=== PATIENT | female | born 1975 | race Caucasian/White ===

== ENCOUNTER 2022-07-24 09:10 | Outpatient (CLI) | payer OTHER, SELFPAY | END 2022-07-24 09:11 | disposition home or self-care (01) | LOC: LKVREF 08-02 09:13 | PROVIDERS: PCP Physician Assistant; Visit Provider Nurse Practitioner Family | DX: R35.0 Frequency of micturition (principal); N39.0 Urinary tract infection, site not specified | CPT/HCPCS: 87086 ==

== ENCOUNTER 2023-03-27 16:48 | Outpatient (CLI) | payer OTHER, SELFPAY | END 2023-03-27 16:49 | disposition home or self-care (01) | LOC: LKVREF 16:50 | PROVIDERS: PCP Physician Assistant; Visit Provider Physician Assistant | DX: L81.9 Disorder of pigmentation, unspecified (principal); R21 Rash and other nonspecific skin eruption | CPT/HCPCS: 86618 ==

== ENCOUNTER 2024-06-20 18:09 | Outpatient (CLI) | payer OTHER, SELFPAY ==
--- OUTSIDE RECORDS SUMMARY | 2024-06-20 18:11 | XMS_ITS | Referral Summary ---
Author Organization Driver Address [address] [place] [address]. [place] [address] Care Team Providers Care Mortgage Collector Name Role Phone Maureen Centeno MD Primary Care Provider Sissy Herrera [facility] Unavailable [phone] Jr Chaparro PA-C Unavailable [phone] Unavailable [phone] Encounters Date Type Department Care Team Description 05/23/2024 MyC Medical Advice [facility] [address] [place] [address] Jr Chaparro PA-C 05/23/2024 Travel 05/23/2024 1:00 PM CDT Office Visit [facility] [address] [place] [address] Jr Chaparro PA-C Class 1 obesity due to excess calories without serious comorbidity with body mass index (BMI) of 33.0 to 33.9 in adult (Primary Dx); Mixed hyperlipidemia; Prediabetes; Benign essential hypertension 05/22/2024 Travel 05/17/2024 10:00 AM CDT Virtual Visit [facility] [address] [place] [phone] Jr Chaparro PA-C Scheller Williams, Kelly J, LISA Elevated glucose; Mixed hyperlipidemia 04/18/2024 [facility] [address] [place] [address] Jr Chaparro PA-C Elevated glucose (Primary Dx); Mixed hyperlipidemia 04/18/2024 Travel 04/18/2024 7:00 AM CDT Office Visit [facility] [address] [place] [address] Jr Chaparro PA-C Routine general medical examination at a health care facility (Primary Dx); Bipolar affective disorder, remission status unspecified (H); Depression, major, recurrent, moderate (H); Benign essential hypertension; Acute dermatitis; Need for prophylactic vaccination and inoculation against influenza; HSV (herpes simplex virus) infection; Gastroesophageal reflux disease, unspecified whether esophagitis present; Elevated glucose 04/17/2024 Travel from Last 3 Months Allergies No known active allergies Medications lisdexamfetamine (VYVANSE) 70 MG capsuleIndication s:Attention Deficit Hyperactivity Disorder Take 70 mg by mouth every morning Active zolpidem ER (AMBIEN CR) 6.25 MG CR tabletIndications :Insomnia, unspecified type Take 1 tablet (6.25 mg) by mouth nightly as needed for sleep 30 tablet 08/24/19 22 Active clobetasol (TEMOVATE) 0.05 % external solutionIndicatio ns:Rash and nonspecific skin eruption Apply topically 2 times daily 50 mL 07/28/20 22 Active mupirocin (BACTROBAN) 2 % external ointmentIndicatio ns:Local infection of skin and subcutaneous tissue Apply topically 3 times daily 22 g 07/28/20 22 Active hydrocortisone 2.5 % cream APPLY 1 APPLICATION TWICE A DAY NEEDED TOPICALLY TO RASH IN GROIN FOLDS FOR LESS THAN 1 WEEK 10/29/19 23 Active hydrochlorothiazi de (MICROZIDE) 12.5 MG capsuleIndication s:Benign essential hypertension Take 1 capsule (12.5 mg) by mouth daily. 90 capsule 3 04/18/20 24 Active triamcinolone (KENALOG) 0.1 % external lotionIndications :Acute dermatitis APPLY TO BACK OF SCALP TWICE A DAY X 1-2 WEEKS, THEN NEEDED FOR ITCHING 60 mL 3 04/18/20 24 Active sertraline (ZOLOFT) 100 MG tabletIndications :Depression, major, recurrent, moderate (H) Take 1.5 tablets (150 mg) by mouth daily. 135 tablet 1 04/18/20 24 Active acyclovir (ZOVIRAX) 400 MG tabletIndications :HSV (herpes simplex virus) infection Take 1 tablet (400 mg) by mouth daily. 90 tablet 3 04/18/20 24 Active RABEprazole (ACIPHEX) 20 MG EC tabletIndications :Gastroesophageal reflux disease, unspecified whether esophagitis present Take 1 tablet (20 mg) by mouth daily. 90 tablet 3 04/18/20 24 Active Semaglutide-Weigh t Management (WEGOVY) 0.25 MG/0.5ML penIndications:Cl ass 1 obesity due to excess calories without serious comorbidity with body mass index (BMI) of 33.0 to 33.9 in adult Inject 0.25 mg subcutaneously once a week. 2 mL 05/23/20 24 Active Semaglutide-Weigh t Management (WEGOVY) 0.5 MG/0.5ML penIndications:Cl ass 1 obesity due to excess calories without serious comorbidity with body mass index (BMI) of 33.0 to 33.9 in adult Inject 0.5 mg subcutaneously once a week. 2 mL 06/20/20 24 Active ondansetron (ZOFRAN) 4 MG tabletIndications :Class 1 obesity due to excess calories without serious comorbidity with body mass index (BMI) of 33.0 to 33.9 in adult Take 1 tablet (4 mg) by mouth every 8 hours as needed for nausea. 30 tablet 05/23/20 24 Active Active Problems Problem Noted Date Diagnosed Date Genital herpes simplex 02/22/2023 Hemorrhoids 02/22/2023 02/22/2023 Anxiety 02/24/2022 02/22/2023 Hypertension 02/24/2022 02/22/2023 ADHD (attention deficit hyperactivity disorder) 02/24/2022 02/22/2023 History of herpes genitalis 12/29/2021 Bipolar affective disorder 12/29/2021 Alcohol use 12/29/2021 Overview (12/29/2021): ALT elevated to 60 in 2019. Normal ALT since that time. Drinking 3-4 Truly seltzers daily Significant fam hx of AUD in parents Consider yearly LFTs Abnormal TSH 12/07/2018 Elevated liver enzymes 12/07/2018 Benign essential hypertension 12/07/2018 Class 1 obesity due to exces s calories with serious comorbidity and body mass index (BMI) of 33.0 to 33.9 in adult 01/22/2018 Depression, major, recurrent, moderate 3 Chronic constipation 08/15/2011 Foot deformities 08/15/2011 Mild major depression 12/21/2010 HYPERLIPIDEMIA LDL GOAL <160 06/13/2010 GERD (gastroesophageal reflux disease) 0 Attention deficit hyperactivity disorder (ADHD) 11/06/2001 Overview (05/14/2015): Problem list name updated by automated process. Provider to review Herpes simplex virus (HSV) infection 11/06/2001 Overview (05/14/2015): Problem list name updated by automated process. Provider to review Family history of early CAD Resolved Problems Problem Noted Date Diagnosed Date Resolved Date Obesity 04/12/2010 01/22/2018 Disorder of sacrum 08/03/2006200 7 Overview (05/14/2015): Problem list name updated by automated process. Provider to review state, incidental 08/03/2006 0 04/12/2010 Depressive disorder, not elsewhere classified 11/07/19 02 12/21/2010 High cholesterol 12/07/2018 Immunizations Name Administration Dates Next Due COVID-19 Bivalent 12+ (Pfizer) 07/28/2022 COVID-19 Monovalent 12+ (Pfizer 2021) 12/29/2021 Flu, Unspecified 04/25/2023,05/23/2007 Influenza (H1N1) 09/28/2009 Influenza (IIV3) PF 05/18/2011,05/19/2010,2008 Influenza Vaccine >6 months,quad, PF ,05/24/2021,04/15/2020,2018,06/06/2018,05/19/2016,05/30/2014,1 Influenza Vaccine Trivalent (FluBlok) 04/18/2024 Influenza Vaccine, 6+MO IM (QUADRIVALENT W/PRESERVATIVES) 07/17/2017,05/19/2016 TD,PF 7+ (Tenivac) 09/26/2002,03/08/2002, 992 TDAP (Adacel,Boostrix) 02/21/2023 TDAP Vaccine (Adacel) 12/13/2012 Td (Adult), Adsorbed 09/26/2002,03/08/2002 Social History Tobacco Use Types Packs/Day Years Used Date Smoking Tobacco: Never Passive Smoke Exposure: Never Smokeless Tobacco: Never Tobacco Cessation:Counseling Given: Not Answered Comments:Parents smoked for first 17 years of my life Alcohol Use Standard Drinks/Week Comments Yes 0 (1 standard drink = 0.6 oz pur e alcohol) 3 times weekly Social Connection and Isolation Panel [NHANES] A nswer Date Recorded Frequency of Communication with Friends and Fami ly Not on file 04/17/2024 How often do you get together with friends or re latives? Once a week 04/17/2024 Attends [employer] Services Not on file 04/17 Active Member of Clubs or Organizations Not on f ile 04/17/2024 Attends Club or Organization Meetings Not on sammie e 04/17/2024 Marital Status Not on file 04/17/2024 AUDIT-C Answer Date Recorded Q1: How often do you have a drink containing alcohol? 4 or more times a week 02/21/2023 Q2: How many drinks containi ng alcohol do you have on a typical day when you are drinking? 1 or 2 Q3: How often do you have si x or more drinks on one occasion? Monthly 02/21/2023 PHQ-2 Answer Date Recorded PHQ-2 Score 2 04/18/2024 [facility] - Occupational Stress Questionnaire Answer Date Recorded Do you feel stress - tense, restless, nervous, or anxious, or unable to sleep at night because your mind is troubled all the time - these days? To some extent 04/17/2024 Exercise Vital Sign Answer Date Recorde d On average, how many days pe r week do you engage in moderate to strenuous exercise (like a brisk walk)? 5 days 04/17/2024 On average, how many minutes do you engage in exercise at this level? 20 min 04/17/2024 Adolescent Education Answer Date Record ed Getting School Help Needed Not on file 05/11 Food Insecurity Answer Date Recorded Within the past 12 months, d id you worry that your food would run out before you got money to buy more? No 04/17/2024 Within the past 12 months, d id the food you bought just not last and you didn? t have money to get more? No 04/17/2024 Housing Stability Answer Date Recorded Do you have housing? (Timbo g is defined as stable permanent housing and does not include staying ouside in a car, in a tent, in an abandoned building, in an overnight assisted, or couch-surfing.) Yes 04/17/2024 Are you worried about losing your housing? No 04/17/2024 Financial Resource Strain Answer Date R ecorded Within the past 12 months, h ave you or your family members you live with been unable to get utilities (heat, electricity) when it was really needed? No 04/17/2024 Transportation Needs Answer Date Record ed Within the past 12 months, h as lack of transportation kept you from medical appointments, getting your medicines, non-medical meetings or appointments, work, or from getting things that you need? No 04/17/2024 Interpersonal Safety Answer Date Record ed Do you feel physically and e motionally safe where you currently live? Yes 04/18/2024 Within the past 12 months, h ave you been hit, slapped, kicked or otherwise physically hurt by someone? No 04/18/2024 Within the past 12 months, h ave you been humiliated or emotionally abused in other ways by your partner or ex-partner? No 04/18/2024 Comments No Sex and Gender Information Value Date Recorded Sex Assigned at Female 10/15/2018 5:37 PM TIP MENDER Legal Sex Female 3:33 AM TIP MENDER Gender Identity Female 10/15/2018 5:37 PM TIP MENDER Sexual Orientation Straight 10/15/2018 5: 37 PM TIP MENDER Last Filed Vital Signs Vital Sign Reading Time Taken Comments Blood Pressure 125/87 05/23/2024 12:49 PM CDT Pulse 93 05/23/2024 12:49 PM CDT Temperature 37.1 ??C (98.7 ??F) 05/23/2024 12:49 PM C DT Respiratory Rate 27 05/23/2024 12:49 PM CDT Oxygen Saturation 99% 05/23/2024 12:49 PM CDT Inhaled Oxygen Concentration - - Weight 90.3 kg (199 lb) 05/23/2024 12:49 PM CDT Height 163.8 cm (5' 4.5) 05/23/2024 12:49 PM CD T Body Mass Index 33.63 05/23/2024 12:49 PM CDT Plan of Treatment Not on file Medical Devices Implanted Type Area Hand Mold Maker Device Identifier Shelf Expiration Date Model / Serial / Lot Sling Solyx Transvaginal Mesh [id number] Implanted:Qty: 1 on 05/17/2017 by Kunal Louis MD at [facility] Mesh N/A: Vagina [employer] 01/12/2020 [id number] / / [id number] Procedures Procedure Name Priority Date/Time Associated Diagnosis Comments AEROBIC BACTERIAL CULTURE ROUTINE Routine 06/11/2024 5:02 PM CDT Other specified noninflammatory disorders of vagina URINE CULTURE Routine 06/11/2024 5:02 PM CDT Frequency of micturition COMPREHENSIVE METABOLIC PANEL Routine 04/18/2024 7:24 AM CDT Routine general medical examination at a health care facility LIPID REFLEX TO DIRECT LDL PANEL Routine 04/18/2024 7:24 AM CDT Routine general medical examination at a health care facility HEMOGLOBIN A1C Routine 04/18/2024 7:24 AM CDT Elevated glucose MA SCREENING BILATERAL W/ DAQUAN Routine 09/07/2023 3:52 PM TIP MENDER Visit for screening mammogram GYNECOLOGIC CYTOLOGY Routine 08/22/2022 4:17 PM TIP MENDER Encounter for gynecological examination (general) (routine) without abnormal findings [ICD-10-CM] HPV HIGH RISK TYPES DNA CERVICAL Routine 08/22/2022 4:17 PM TIP MENDER Encounter for gynecological examination (general) (routine) without abnormal findings [ICD-10-CM] COLONOSCOPY Routine 04/05/2022 9:22 AM CDT from Last 3 Months or Most Recently Relevant to Health Maintenance Results * (ABNORMAL) Wound Aerobic Bacterial Culture Routine (06/11/2024 5:02 PM CDT) Culture 1+ Normal natalie 8:18 AM CDT [facility] Culture 3+ Streptococcus anginosus(A) 06/14/2024 8:18 AM CDT [facility] Comment:This organism is glenn ceptible to ampicillin, penicillin, vancomycin and the cephalosporins. If treatment is required and your patient is allergic to penicillin, contact the microbiology lab within 5 days to request susceptibility testing. Gram Stain Result 2+ Gram positive bacilli(A) 06/14/2024 8:18 AM CDT [facility] Gram Stain Result 2+ Gram negative bacilli(A) 06/14/2024 8:18 AM CDT [facility] Gram Stain Result 1+ WBC seen(A) 08/2023 8:18 AM CDT [facility] Wound VAGINAL STRUCTURE / Unknown Non-blood Collection / Unknown 06/11/2024 5:02 PM CDT 06/11/2024 8:56 PM CDT us Parvin Mccarty MD LAB - MICRO GENERAL ORDERABLE S Final Result [facility] Inf. Diseases Diag. Lab [address] [facility], [address] [place] [address] * (ABNORMAL) Urine Culture (06/11/2024 5:02 PM CDT) Culture 50,000-100,000 CFU/mL Streptococcus anginosus(A) 06/13/2024 9:32 AM CDT [facility] Comment:This organism is glenn ceptible to ampicillin, penicillin, vancomycin and the cephalosporins. If treatment is required and your patient is allergic to penicillin, contact the microbiology lab within 5 days to request susceptibility testing. Urine MID-STREAM URINE SPECIMEN / Unknown Non-blood Collection / Unknown 06/11/2024 5:02 PM CDT 06/11/2024 9:16 PM CDT us Parvin Mccarty MD LAB - MICRO GENERAL ORDERABLE S Final Result [facility] Inf. Diseases Diag. Lab [address] [facility], [address] [place] [address] * (ABNORMAL) Lipid panel reflex to direct LDL Fasting (04/18/2024 7:24 AM CDT) Cholesterol 233(H) <200 mg/dL 04/18/2024 5:29 PM CDT [facility] Triglycerides 242(H) <150 mg/dL 04/18/2024 5:29 PM CDT [facility] Direct Measure HDL 47(L) >=50 mg/dL 04/18/2024 5:29 PM CDT [facility] LDL Cholesterol Calculated 138(H) <=100 mg/dL 04/18/2024 5:29 PM CDT [facility] Non HDL Cholesterol 186(H) <130 mg/dL 04/18/2024 5:29 PM CDT [facility] Patient Fasting > 8hrs? Yes 04/18/2024 5:29 PM CDT [facility] Blood BLOOD SPECIMEN / Unknown Venipuncture / Unknown 04/18/2024 7:24 AM CDT 04/18/2024 7:24 AM CDT Narrative [facility] - 04/18/2024 5:29 PM CDT Cholesterol Desirable: ??<200 mg/dL Triglycerides Normal: ??Less than 150 mg/dL Borderline High: ??150-199 mg/dL High: ??200-499 mg/dL Very High: ??Greater than or equal to 500 mg/dL Direct Measure HDL Female: ??Greater than or equal to 50 mg/dL Male: ??Greater than or equal to 40 mg/dL LDL Cholesterol Desirable: ??<100mg/dL Above Desirable: ??100-129 mg/dL Borderline High: ??130-159 mg/dL High: ??160-189 mg/dL Very High: ??>= 190 mg/dL Non HDL Cholesterol Desirable: ??130 mg/dL Above Desirable: ??130-159 mg/dL Borderline High: ??160-189 mg/dL High: ??190-219 mg/dL Very High: ??Greater than or equal to 220 mg/dL Jr Chaparro PA-C LAB - BLOOD ORDERABLES Final Result LABORATORY [facility] [place] [facility] [address] [facility], [address] [place] [address], [facility] * (ABNORMAL) Hemoglobin A1c (04/18/2024 7:24 AM CDT) Hemoglobin A1C 6.0(H) 0.0 - 5.6 % 04/18/2024 7:29 AM CDT LABORATORY Comment: Normal <5.7% Prediabetes 5.7-6.4% ?? Diabetes 6.5% or higher Note: Adopted from ADA consensus guidelines. Blood BLOOD SPECIMEN / Unknown Venipuncture / Unknown 04/18/2024 7:24 AM CDT 04/18/2024 7:24 AM CDT Jr Chaparro PA-C LAB - BLOOD ORDERABLES Final Result LABORATORY [facility] [place] [facility] [address] [facility] (no room number, 1st floor of clinic) [place] [address], [facility] * (ABNORMAL) Comprehensive metabolic panel (BMP + Alb, Alk Phos, ALT, AST, Total. Bili, TP) (04/18/2024 7:24 AM CDT) Sodium 139 135 - 145 mmol/L 04/18/2024 5:29 PM CDT [facility] Potassium 3.8 3.4 - 5.3 mmol/L 04/18/2024 5:29 PM CDT [facility] Carbon Dioxide (CO2) 23 22 - 29 mmol/L 04/18/2024 5:29 PM CDT [facility] Anion Gap 12 7 - 15 mmol/L 04/18/2024 5:29 PM CDT [facility] Urea Nitrogen 11.6 6.0 - 20.0 mg/dL 04/18/2024 5:29 PM CDT [facility] Creatinine 0.66 0.51 - 0.95 mg/dL 04/18/2024 5:29 PM CDT [facility] GFR Estimate >90 >60 mL/min/1.7 3m2 04/18/2024 5:29 PM CDT [facility] Comment:eGFR calculated usin 2020 CKD-EPI equation. Calcium 9.1 8.8 - 10.4 mg/dL 04/18/2024 5:29 PM CDT [facility] Comment:Reference intervals for this test were updated on 02/27/2024 to reflect our healthy population more accurately. There may be differences in the flagging of prior results with similar values performed with this method. Those prior results can be interpreted in the context of the updated reference intervals. Chloride 104 98 - 107 mmol/L 04/18/2024 5:29 PM CDT [facility] Glucose 109(H) 70 - 99 mg/dL 04/18/2024 5:29 PM CDT [facility] Alkaline Phosphatase 127 40 - 150 U/L 04/18/2024 5:29 PM CDT [facility] AST 21 0 - 45 U/L 04/18/2024 5:29 PM CDT [facility] ALT 20 0 - 50 U/L 04/18/2024 5:29 PM CDT [facility] Protein Total 7.4 6.4 - 8.3 g/dL 04/18/2024 5:29 PM CDT [facility] Albumin 4.3 3.5 - 5.2 g/dL 04/18/2024 5:29 PM CDT [facility] Bilirubin Total 0.4 <=1.2 mg/dL 04/18/2024 5:29 PM CDT [facility] Patient Fasting > 8hrs? Yes 04/18/2024 5:29 PM CDT U [facility]ATORY Blood BLOOD SPECIMEN / Unknown Venipuncture / Unknown 04/18/2024 7:24 AM CDT 04/18/2024 7:24 AM CDT Jr Chaparro PA-C LAB - BLOOD ORDERABLES Final Result LABORATORY [facility] [place] [facility] [address] [facility], [address] [place] [address] * MA Screen Bilateral w/Daquan (09/07/2023 3:52 PM TIP MENDER) Anatomical Region Laterality Modality Breast Bilateral Mammography Impressions 09/11/2023 9:01 AM TIP MENDER IMPRESSION: ACR BI-RADS Category 1: Negative BREAST CANCER SCREENING RECOMMENDATION: Routine yearly mammography beginning at age 40 or as discussed with your provider. The results and recommendations of this examination will be communicated to the patient. Bubba Luciano MD Narrative 09/11/2023 9:01 AM TIP MENDER BILATERAL FULL FIELD DIGITAL SCREENING MAMMOGRAM WITH TOMOSYNTHESIS Performed on: 09/07/23 Compared to: 08/15/2022 and 12/06/2018 Technique: ??This study was evaluated with the assistance of Computer-Aided Detection. ??Breast Tomosynthesis was used in interpretation. Findings: The breasts have scattered areas of fibroglandular density. ?? There is no radiographic evidence of malignancy. Dejon Gerber DO IMG MAMMOGRAPHY ORDERABL ES Final Result * Gynecologic Cytology (PAP) (08/22/2022 4:17 PM TIP MENDER) Interpretation Negative for Intraepithelial Lesion or Malignancy (NILM) 08/25/2022 1:14 PM TIP MENDER [facility] Comment Papanicolaou Test Limitations: Cervical cytology is a screening test with limited sensitivity, and regular screening is critical for cancer prevention. Pap tests are primarily effective for the diagnosis/prevent ion of squamous cell carcinoma, not adenocarcinoma or other cancers. 08/25/2022 1:14 PM TIP MENDER [facility] Specimen Adequacy Satisfactory for evaluation, endocervical/nielsen sformation zone component absent 08/25/2022 1:14 PM TIP MENDER [facility] Clinical Information none 08/25/2022 1:14 PM TIP MENDER [facility] LMP/Menopause Date 08/14/22 08/25/2022 1:14 PM TIP MENDER [facility] Reflex Testing Yes regardless of result 08/25/2022 1:14 PM TIP MENDER [facility] Previous Abnormal? No 08/25/2022 1:14 PM TIP MENDER [facility] Previous Abnormal Diagnosis NEGATIVE 08/25/2022 1:14 PM TIP MENDER [facility] Performing Labs The technical component of this testing was completed at [facility] 08/25/2022 1:14 PM TIP MENDER [facility] Brushing CERVIX UTERI STRUCTURE / Unknown 08/22/2022 4:17 PM TIP MENDER 08/23/2022 9:14 AM TIP MENDER Dejon Gerber DO LAB - NABOR AP Final Re sult [facility] Specialty Lab [address] [facility], [address] [place], [place] [address], [facility] [phone] * HPV High Risk Types DNA Cervical (08/22/2022 4:17 PM TIP MENDER) Other HR HPV Negative Negative 08/29/2022 9:56 AM TIP MENDER [facility] HPV16 DNA Negative Negative 08/29/2022 9:56 AM TIP MENDER [facility] HPV18 DNA Negative Negative 08/29/2022 9:56 AM TIP MENDER [facility] FINAL DIAGNOSIS This patient's sample is negative for HPV DNA. This test was developed and its performance characteristics determined by the [facility], Molecular Diagnostics Laboratory. It has not been cleared or approved by the FDA. The laboratory is regulated under CLIA as qualified to perform high-complexity testing. This test is used for clinical purposes. It should not be regarded as investigational or for research. METHODOLOGY: The [employer] Kamran 4800 system uses automated extraction, simultaneous amplification of HPV (L1 region) and beta-globin, followed by real time detection of fluorescent labeled HPV and beta globin using specific oligonucleotide probes. The test specifically identifies types HPV 16 DNA and HPV 18 DNA while concurrently detecting the rest of the high risk types (31, 33, 35, 39, 45, 51, 52, 56, 58, 59, 66 or 68). COMMENTS: This test is not intended for use as a screening device for woman under age 30 with normal cervical cytology. Results should be correlated with cytologic and histologic findings. Close clinical followup is recommended. 08/29/2022 9:56 AM TIP MENDER [facility] Brushing CERVIX UTERI STRUCTURE / Unknown Non-blood Collection / Unknown 08/22/2022 4:17 PM TIP MENDER 08/26/2022 10:12 AM TIP MENDER us Dejon Gerber DO LAB - BLOOD ORDERABLES F inal Result [facility] Molecular Diagnostics [address] [facility], [address] [address] [phone] * COLONOSCOPY (04/05/2022 9:22 AM CDT) COLONOSCOPY [facility] Patient Name: Quynh Jay ? Procedure Date: 04/05/2022 9:22 AM ? Date of : 1975 ?Admit Type: Outpatient Age: 46 ? Gender: Female Attending MD: ERVIN BOYER MD ?? Total Sedation Time: 17_minutes continuous bedside 1:1 Instrument Name: 226 - Adult Colonoscope Procedure: ?Colonoscopy Indications: ?Screening for colorectal malignant neoplasm Providers: ?ERVIN BOYER MD (Doctor) Referring MD: ? Medicines: ?Midazolam 3 mg IV, Fentanyl 150 micrograms IV Complications: ?No immediate complications. Procedure: ?Pre-Anesthesia Assessment: ?- Prior to the procedure, a History and Physical ?was performed, and patient medications and ?allergies were reviewed. The patient is competent. ?The risks and benefits of the procedure and the ?sedation options and risks were discussed with the ?patient. All questions were answered and informed ?consent was obtained. Patient identification and ?proposed procedure were verified in the ?pre-procedure area. Mental Status Examination: ?alert and oriented. Airway Examination: normal ?oropharyngeal airway and neck mobility. Respiratory ?Examination: clear to auscultation. CV Examination: ?normal. Prophylactic Antibiotics: The patient does ?not require prophylactic antibiotics. Prior ?Anticoagulants: The patient has taken no ?anticoagulant or antiplatelet agents. ASA Grade ?Assessment: II - A patient with mild systemic ?disease. After reviewing the risks and benefits, ?the patient was deemed in satisfactory condition to ?undergo the procedure. The anesthesia plan was to ?use moderate sedation / analgesia (conscious ?sedation). Immediately prior to administration of ?medications, the patient was re-assessed for ?adequacy to receive sedatives. The heart rate, ?respiratory rate, oxygen saturations, blood ?pressure, adequacy of pulmonary ventilation, and ?response to care were monitored throughout the ?procedure. The physical status of the patient was ?re-assessed after the procedure. ?After obtaining informed consent, the colonoscope ?was passed under direct vision. Throughout the ?procedure, the patient's blood pressure, pulse, and ?oxygen saturations were monitored continuously. The ?Olympus Adult Colonoscope, Model # CF-DZ494O, ?Endora # 226, SN # [id number] was introduced through ?the anus and advanced to the cecum, identified by ?appendiceal orifice and ileocecal valve. The ?colonoscopy was performed without difficulty. The ?patient tolerated the procedure well. The quality ?of the bowel preparation was good. Anatomical ?landmarks were photographed. ? Findings: ? The perianal and digital rectal examinations were normal. ? The entire examined colon appeared normal on direct and retroflexion ? views. ? Impression: ? - The entire examined colon is normal on direct and ?retroflexion views. ?- No specimens collected. Recommendation: ? - Repeat colonoscopy in 10 years for screening ?purposes. ? Procedure Code(s): ? --- Professional --- ? G0121, Colorectal cancer screening; colonoscopy on individual not ? meeting criteria for high risk Diagnosis Code(s): ? --- Professional --- ? Z12.11, Encounter for screening for malignant neoplasm of colon CPT copyright 2020 [employer]. All rights reserved. The codes documented in this report are preliminary and upon neurologist review may be revised to meet current compliance requirements. Electronically signed by Ervin Boyer MD __ ERVIN BOYER MD 04/05/2022 9:49:46 AM I was physically present for the entire viewing portion of the exam. ERVIN BOYER MD Number of Addenda: 0 Note Initiated On: 04/05/2022 9:22 AM MRN: ?[id number] Procedure Date: ? 04/05/2022 9:22:55 AM Scope Withdrawal Time: 0 hours 6 minutes 8 seconds Total Procedure Duration: 0 hours 13 minutes 26 seconds Estimated Blood Loss: ? Scope In: 9:30:57 AM Scope Out: 9:44:23 AM RADIOLOGY RESULTS 04/05/2022 9:22 AM CDT Ervin Boyer MD PROCEDURES Final Result RADIOLOGY RESULTS from Last 3 Months or Most Recently Relevant to Health Maintenance Insurance [place] [id number] [facility] [employer] [facility] [employer] * Guarantor: Quynh Jay Account Type Relation to Patient Date of Phone Billing Address Medication Therapy Self [address] [facility] [place] [address] Advance Directives For more information, please contact: [phone] * No Code Status (Latest Code Status on File) Date Activated Date Inactivated Comments 03/15/2004 3:34 PM 03/15/2004 3:34 PM Care Teams Mortgage Collector Relationship Specialty [place] [address] [place] [address] PCP - General Family Practice 03/21/11 Sissy Herrera RPH [address] [place] [address] Pharmacist Pharmacist 07/22/20 Jr Chaparro PA-C [address] [place] [address] Assigned PCP 07/08/23 Nirmala Castrejon, RD [address] [facility] [address] [place] [address] Registered Dietitian Dietitian, Registered 04/23/24
--- OUTSIDE RECORDS SUMMARY | 2024-06-20 18:11 | XMS_ITS | Encounter Summary ---
Author Organization [facility] Address [address] [place] [address]. [place] [address] Care Team Providers Care Director Of Enrollment Name Role Phone Maureen Centeno MD Primary Care Provider Sissy Herrera [facility] Unavailable [phone] Jr Chaparro PA-C Unavailable [phone] Unavailable [phone] Encounter Details Date Type Department Care Team (Late st Contact Info) Description 05/23/2024 [facility] [place] [facility] Advice [facility] [address] [place] [address] Jr Chaparro PA-C [address] [place] [address] Social History Tobacco Use Types Packs/Day Years Used Date Smoking Tobacco: Never Passive Smoke Exposure: Never Smokeless Tobacco: Never Comments:Parents smoked for first 17 years of [...] re latives? Once a week 04/17/2024 Attends [employer] Not on file 04/17 Active Member [...] Answer Date Recorded PHQ-2 Score 2 04/18/2024 [facility] ional [facility] - [...] Answer Date Recorded Do you have housing? (Housin g is defined as stable permanent housing and does not include staying ouside in a car, in a tent, in an abandoned building, in an overnight chcf, or couch-surfing.) Yes 04/17/2024 Are you worried [...] Sex Assigned at Female 10/15/2018 5:37 PM OPEN CUT EXAMINER Legal Sex Female 3:33 AM OPEN CUT EXAMINER Gender Identity Female 10/15/2018 5:37 PM OPEN CUT EXAMINER Sexual Orientation Straight 10/15/2018 5: 37 PM OPEN CUT EXAMINER documented as of this encounter Miscellaneous Notes * Telephone Encounter - Jr Chaparro PA-C - 05/24/2024 9:07 AM CDT I wasn't involved in the management of her hysterectomy. Not sure if she was low prior? I do not see a CBC recently on file. It can take a while to improve but she should probably contact her OBGYN to ask this as well. Jr documented in this encounter Plan of Treatment Not on file documented as of this encounter Visit Diagnoses Not on filedocumented in this encounter Additional Health Concerns Assessment Noted Time PHQ-9 Depression Total Score: 024 5:54 PM CDT documented as of this encounter Care Teams Director Of Enrollment Relationship Specialty [place] [address] [address] [place] [address] PCP - General Family Practice 03/21/11 Sissy Herrera RPH [address] [place] [address] Pharmacist Pharmacist 07/22/20 Jr Chaparro PA-C [address] [facility] [address] Assigned PCP 07/08/23 Nirmala Castrejon, LISA [address] [place] [address] [address] [place] [address] Registered Dietitian Dietitian, Registered 04/23/24 documented as of this encounter
--- OUTSIDE RECORDS SUMMARY | 2024-06-20 18:11 | XMS_ITS | Clinical Summary ---
Author Organization [facility] Address [address] [place] [address] Care Team Providers Care Baseball Sewer Hand Name Role Phone Maureen Centeno MD Primary Care Provider Sissy Herrera [facility] Unavailable [phone] Jr Chaparro PA-C Unavailable Nirmala Castrejon RD Unavailable [phone] Allergies No known active allergies Medications lisdexamfetamine [...] Date Diagnosed Date Genital herpes simplex 02/22/2023 3 Hemorrhoids 02/22/2023 02/22/2023 Anxiety 02/24/2022 02/22/2023 Hypertension [...] Date Obesity 04/12/2010 01/22/2018 Disorder of sacrum 08/03/2006 7 Overview (05/14/2015): Problem list name updated by automated process. Provider to review state, incidental 08/03/2006 0 04/12/2010 Depressive disorder, not elsewhere classified 11/07/19 02 12/21/2010 High cholesterol 12/07/2018 Encounters Date Type Department Care Team Description 05/23/2024 1:00 PM CDT Office Visit [address] [address] Jr Chaparro PA-C Class 1 obesity due to excess calories without serious comorbidity with body mass index (BMI) of 33.0 to 33.9 in adult (Primary Dx); Mixed hyperlipidemia; Prediabetes; Benign essential hypertension 05/23/2024 My[facility] Medical Advice [facility] [address] [place] [address] Jr Chaparro PA-C 05/23/2024 Travel 05/22/2024 Travel 05/17/2024 10:00 AM CDT Virtual Visit [facility] [address] [place] [address] Jr Chaparro PA-C Scheller Williams, Kelly J, RD Elevated glucose; Mixed hyperlipidemia 04/18/2024 7:00 AM CDT Office Visit [facility] [address] [place] [phone] Jr Chaparro PA-C Routine general medical examination at a health care facility (Primary Dx); Bipolar affective disorder, remission status unspecified (H); Depression, major, recurrent, moderate (H); Benign essential hypertension; Acute dermatitis; Need for prophylactic vaccination and inoculation against influenza; HSV (herpes simplex virus) infection; Gastroesophageal reflux disease, unspecified whether esophagitis present; Elevated glucose 04/18/2024 MyC Medical Advice [facility] [address] [place] [address] Jr Chaparro PA-C Elevated glucose (Primary Dx); Mixed hyperlipidemia 04/18/2024 Travel 04/17/2024 Travel from Last 3 Months Immunizations Name Administration Dates Next Due COVID-19 Bivalent 12+ (Pfizer) 07/28/2022 COVID-19 Monovalent 12+ (Pfizer 2021) 12/29/2021 Flu, Unspecified 04/25/2023,05/23/2007 Influenza (H1N1) 09/28/2009 Influenza (IIV3) PF 05/18/2011,05/19/2010,2008 Influenza Vaccine >6 months,quad, PF ,05/24/2021,04/15/2020,2018,06/06/2018,05/19/2016,05/30/2014,1 Influenza Vaccine Trivalent (FluBlok) 04/18/2024 Influenza Vaccine, 6+MO IM (QUADRIVALENT W/PRESERVATIVES) 07/17/2017,05/19/2016 TD,PF 7+ (Tenivac) 09/26/2002,03/08/2002, 992 TDAP (Adacel,Boostrix) 02/21/2023 TDAP Vaccine (Adacel) 12/13/2012 Td (Adult), Adsorbed 09/26/2002,03/08/2002 Family History Medical History Relation Comments Depression Brother 1 Alcohol/Drug Brother 2 Anxiety Disorder Brother 3 Chemical Addiction Brother 3 Alcohol Depression Brother 3 Substance Abuse Brother 3 Alcohol Anxiety Disorder Cousin 1 Depression Cousin 1 Depression Hyperlipidemia Cousin 1 Hypertension Cousin 1 Obesity Cousin 1 Diabetes Cousin 2 Cousin Hypertension Cousin 2 Obesity Cousin 2 Cerebrovascular Disease Cousin 3 at 46 Depression Cousin 3 Hypertension Cousin 3 Substance Abuse Cousin 3 Alcohol Obesity Cousin 4 Cancer Father lung Chemical Addiction Father Alcohol/Cigar ettes Hyperlipidemia Father Hypertension Father Other Cancer Father Lung Cancer Respiratory Father smoker Substance Abuse Father Alcohol Diabetes Maternal Grandfather Diabetes Maternal Grandmother Obesity Maternal Grandmother Alcohol/Drug Maternal Uncle Alcohol/Drug Mother OH from alcohol Cerebrovascular Disease Mother at 45 Chemical Addiction Mother Alchohol/Ciga rettes Depression Mother Depression/Anxiety Mother Hyperlipidemia Mother Hypertension Mother Obesity Mother Substance Abuse Mother Alcohol Diabetes Other 1 Maternal Aunt Obesity Other 1 Diabetes Other 2 Maternal Aunt Obesity Other 2 Diabetes Other 3 Maternal Aunt Substance Abuse Other 4 Alcohol Obesity Other 5 Diabetes Paternal Grandfather Substance Abuse Paternal Grandfather Alcohol Diabetes Paternal Grandmother Osteoporosis Paternal Grandmother Anxiety Disorder Son 1 Depression Son 1 Depression,ADHD, Anxiety Mental Illness Son 1 ADHD Anxiety Disorder Son 2 Mental Illness Son 2 ADHD Colon Cancer No family hx of Relation Status Comments Brother 1 Brother 2 Brother 3 Cousin 1 Cousin 2 Cousin 3 Cousin 4 Father Maternal Grandfather Maternal Grandmother Maternal Uncle Mother Other 1 Other 2 Other 3 Other 4 Other 5 Paternal Grandfather Paternal Grandmother Son 1 Son 2 Social History Tobacco Use Types Packs/Day Years [...] re latives? Once a week 04/17/2024 Attends [employer] Not on file 04/17 Active Member [...] Answer Date Recorded PHQ-2 Score 2 04/18/2024 [facility] [place] of Occupat ional Health - Occupational Stress [...] Date Recorded Do you have housing? (Timbo zhou is defined as stable permanent housing and does not include staying ouside in a car, in a tent, in an abandoned building, in an overnight half-way, or couch-surfing.) Yes 04/17/2024 Are you worried [...] Sex Assigned at Female 10/15/2018 5:37 PM MANAGER PARK Legal Sex Female 3:33 AM MANAGER PARK Gender Identity Female 10/15/2018 5:37 PM MANAGER PARK Sexual Orientation Straight 10/15/2018 5: 37 PM MANAGER PARK Last Filed Vital Signs Vital Sign Reading [...] 05/23/2024 12:49 PM CDT Plan of Treatment Health Maintenance Due Date Last Done Comments CT COLONOGRAPHY 1975 FIT 1975 FLEX SIG 1975 sDNA (Cologuard) 1975 ZOSTER IMMUNIZATION (1 of 2) 11/11/2023 COVID-19 Vaccine ( - season) 2024 07/28/2022, 12/29/2021, 12/03/2020, Additional history exists DEPRESSION 12 MO INDEX REPEAT PHQ-9 05/11/2024 04/18/2024, 07/11/2023, 02/21/2023, Additional history exists ANNUAL REVIEW OF HM ORDERS 04/18/202504/18, 02/21/2023, 06/17/2021 BMP 04/18/2025 04/18/2024, 06/15, 03/29/2022, Additional history exists LIPID 04/18/2025 04/18/2024, 06/15, 02/21/2023, Additional history exists YEARLY PREVENTIVE VISIT 04/18/2025 04/18/20 24, 09/13/2023, 02/21/2023, Additional history exists MAMMO SCREENING 09/07/2025 09/07/2023, 09/2022, 06/21/2021, Additional history exists GLUCOSE 04/18/2027 04/18/2024, 06/15, 03/29/2022, Additional history exists ADVANCE CARE PLANNING 04/18/2029 04/18/2024 , 02/23/2023, 03/29/2022, Additional history exists COLONOSCOPY 04/05/2032 04/05/2022, 03/15, 01/12/2022 COLORECTAL CANCER SCREENING 04/05/2032 DTAP/TDAP/TD IMMUNIZATION (4 - Td or Tdap) 02/21/2033 02/21/2023, 12/13/2012, 09/26/2002, Additional history exists RSV VACCINE (1 - 1-dose 75+ series) 2048 HPV TEST Discontinued 08/22/2022, 11/13, 09/27/2016 PAP Discontinued 08/22/2022, 11/13, 09/27/2016, Additional history exists INFLUENZA VACCINE Completed 04/18/2024, , 07/28/2022, Additional history exists HEPATITIS B IMMUNIZATION Discontinued HEPATITIS C SCREENING Discontinued HIV SCREENING Discontinued HPV IMMUNIZATION Aged Out No longer e ligible based on patient's age to complete this topic MENINGITIS IMMUNIZATION Aged Out No l onger eligible based on patient's age to complete this topic Pneumococcal Vaccine: Pediatrics (0 to 5 Years) and At-Risk Patients (6 to 64 Years) Aged Out No longer eligible based on patient's age to complete this topic RSV MONOCLONAL ANTIBODY Aged Out No l onger eligible based on patient's age to complete this topic Medical Devices Implanted Type Area Flavorer Device Identifier Shelf Expiration Date Model / Serial / Lot Sling Solyx Transvaginal Mesh [id number] Implanted:Qty: 1 on 05/17/2017 by Kunal Louis MD at [facility] Mesh N/A: Vagina [employer] 01/12/2020 [id number] / / [id number] Procedures Procedure Name Priority Date/Time Associated Diagnosis [...] BILATERAL W/ DAQUAN Routine 09/07/2023 3:52 PM MANAGER PARK Visit for screening mammogram GYNECOLOGIC CYTOLOGY Routine 08/22/2022 4:17 PM MANAGER PARK Encounter for gynecological examination (general) (routine) without abnormal findings [ICD-10-CM] HPV HIGH RISK TYPES DNA CERVICAL Routine 08/22/2022 4:17 PM MANAGER PARK Encounter for gynecological examination (general) (routine) without [...] 5:02 PM CDT 06/11/2024 8:56 PM CDT Parvin Mccarty MD LAB - MICRO GENERAL ORDERABLE S Final Result [facility] Inf. Diseases Diag. Lab [address] [facility], [address] [place] [address] * (ABNORMAL) Urine Culture (06/11/2024 5:02 [...] ORDERABLE S Final Result [facility] [employer] Inf. Diseases Diag. Lab [address] [facility], [address] [place] [address], [facility] * (ABNORMAL) Lipid panel reflex to direct LDL Fasting (04/18/2024 7:24 AM CDT) Pathologist [facility] Cholesterol 233(H) <200 mg/dL 04/18/2024 5:29 PM [...] PA-C LAB - BLOOD ORDERABLES Final Result [facility] Core Lab [address] [facility], [address] [place] [address], [facility] * (ABNORMAL) Hemoglobin A1c (04/18/2024 7:24 AM CDT) Hemoglobin A1C 6.0(H) 0.0 - 5.6 % 04/18/2024 7:29 AM CDT LABORATORY Comment: Normal <5.7% Prediabetes 5.7-6.4% ?? Diabetes 6.5% or higher Note: Adopted from ADA consensus guidelines. Blood BLOOD SPECIMEN / Unknown Venipuncture / Unknown 04/18/2024 7:24 AM CDT 04/18/2024 7:24 AM CDT Jr Chaparro PA-C LAB - BLOOD ORDERABLES Final Result Performing Organization Address City/[facility]/ZIP Co de Phone Number LABORATORY [facility] [address] [facility] (no room number, 1st floor of clinic) [place] [address], [facility] * (ABNORMAL) Comprehensive metabolic panel (BMP + Alb, Alk Phos, ALT, AST, Total. Bili, TP) (04/18/2024 7:24 AM CDT) Sodium 139 135 - 145 mmol/L 04/18/2024 5:29 PM CDT [facility] Potassium 3.8 3.4 - 5.3 mmol/L [...] PA-C LAB - BLOOD ORDERABLES Final Result [facility] Lab [address] [facility], [address] [place] [phone] * MA Screen Bilateral w/Daquan (09/07/2023 3:52 PM MANAGER PARK) Anatomical Region Laterality Modality Breast Bilateral Mammography Impressions 09/11/2023 9:01 AM MANAGER PARK IMPRESSION: ACR BI-RADS Category 1: Negative BREAST CANCER SCREENING RECOMMENDATION: Routine yearly mammography beginning at age 40 or as discussed with your provider. The results and recommendations of this examination will be communicated to the patient. Bubba Luciano MD Narrative 09/11/2023 9:01 AM MANAGER PARK BILATERAL FULL FIELD DIGITAL SCREENING MAMMOGRAM WITH [...] * Gynecologic Cytology (PAP) (08/22/2022 4:17 PM MANAGER PARK) Interpretation Negative for Intraepithelial Lesion or Malignancy (NILM) 08/25/2022 1:14 PM MANAGER PARK [facility] Comment Papanicolaou Test Limitations: Cervical cytology is a screening test with limited sensitivity, and regular screening is critical for cancer prevention. Pap tests are primarily effective for the diagnosis/prevent ion of squamous cell carcinoma, not adenocarcinoma or other cancers. 08/25/2022 1:14 PM MANAGER PARK [facility] Specimen Adequacy Satisfactory for evaluation, endocervical/nielsen sformation zone component absent 08/25/2022 1:14 PM MANAGER PARK [facility] Clinical Information none 08/25/2022 1:14 PM MANAGER PARK [facility] LMP/Menopause Date 08/14/22 08/25/2022 1:14 PM MANAGER PARK [facility] Reflex Testing Yes regardless of result 08/25/2022 1:14 PM MANAGER PARK [facility] Previous Abnormal? No 08/25/2022 1:14 PM MANAGER PARK [facility] Previous Abnormal Diagnosis NEGATIVE 08/25/2022 1:14 PM MANAGER PARK [facility] Performing Labs The technical component of this testing was completed at [facility] 08/25/2022 1:14 PM MANAGER PARK [facility] Brushing CERVIX UTERI STRUCTURE / Unknown 08/22/2022 4:17 PM MANAGER PARK 08/23/2022 9:14 AM MANAGER PARK Dejon Gerber DO LAB - NABOR AP Final Re sult [facility] Specialty Lab [address] [facility], [address] [place] [address], [facility] [phone] * HPV High Risk Types DNA Cervical (08/22/2022 4:17 PM MANAGER PARK) Other HR HPV Negative Negative 08/29/2022 9:56 AM MANAGER PARK [facility] HPV16 DNA Negative Negative 08/29/2022 9:56 AM MANAGER PARK [facility] HPV18 DNA Negative Negative 08/29/2022 9:56 AM MANAGER PARK [facility] FINAL DIAGNOSIS This patient's sample is negative for HPV DNA. This test was developed and its performance characteristics determined by the [facility], Molecular Diagnostics Laboratory. It has not [...] clinical followup is recommended. 08/29/2022 9:56 AM MANAGER PARK [facility] Brushing CERVIX UTERI STRUCTURE / Unknown Non-blood Collection / Unknown 08/22/2022 4:17 PM MANAGER PARK 08/26/2022 10:12 AM MANAGER PARK us Dejon Gerber DO LAB - BLOOD ORDERABLES F inal Result [facility]ST[facility] Molecular Diagnostics [address] [facility], [address] [phone] [phone] * COLONOSCOPY (04/05/2022 9:22 AM CDT) COLONOSCOPY [facility] Patient Name: Quynh Smith Jay ? Procedure Date: 04/05/2022 9:22 AM [...] continuously. The ?Olympus Adult Colonoscope, Model # CF-LN007C, ?Endora # 226, SN # [id number] was introduced through ?the anus and advanced [...] malignant neoplasm of colon CPT copyright 2020 [place] [employer]. All rights reserved. The codes documented in this report are preliminary and upon reservoir engineering advisor review may be revised to meet current compliance requirements. Electronically signed by Ervin Boyer MD __ ERVIN BOYER MD 04/05/2022 9:49:46 AM I was physically present for the entire viewing portion of the exam. ERVIN BOYER MD Number of Addenda: 0 Note Initiated On: 04/05/2022 9:22 AM MRN: ?[id number] Procedure Date: ? 04/05/2022 9:22:55 AM Scope Withdrawal Time: 0 hours 6 minutes 8 seconds Total Procedure Duration: 0 hours 13 minutes 26 seconds Estimated Blood Loss: ? Scope In: 9:30:57 AM Scope Out: 9:44:23 AM RADIOLOGY RESULTS 04/05/2022 9:22 AM CDT us Ervin Boyer MD PROCEDURES Final Result RADIOLOGY RESULTS from Last 3 Months or Most Recently Relevant to Health Maintenance Insurance [facility] [employer] [place] [employer] * Guarantor: Quynh Jay Account Type Relation to Patient Date of Phone Billing Address Medication Therapy Self [address] [place] [address] Advance Directives For more information, please contact: [phone] * No Code Status (Latest Code Status on File) Date Activated Date Inactivated Comments 03/15/2004 3:34 PM 03/15/2004 3:34 PM Care Teams Baseball Sewer Hand Relationship Specialty [place] [address] [place] [address] PCP - General Family Practice 03/21/11 Sissy Herrera RPH [address] [place] [address] Pharmacist Pharmacist 07/22/20 Jr Chaparro PA-C [address] [place] [address] Assigned PCP 07/08/23 Nirmala Castrejon, RD [address] [facility] [address] [place] [address] Registered Dietitian Dietitian, Registered 04/23/24
--- OUTSIDE RECORDS SUMMARY | 2024-06-20 18:12 | XMS_ITS | Encounter Summary ---
Author Organization [place] Address [address] [place] [address] Care Team Providers Care Consultative Sales Associate Name Role Phone Maureen Centeno MD Primary Care Provider Kayy Allen [facility] Unavailable Unavailable Maureen Centeno MD Unavailable [phone] Maureen Centeno MD Unavailable [phone] Sissy Herrera [facility] Unavailable [phone] Risa Mcdowell MD Unavailable [phone] Brandi Gutierrez MD Unavailable + Maureen Centeno MD Unavailable [phone] Alejandro Mccarty MD Unavailable Jr Chaparro PA-C Unavailable +[phone] Unavailable +[phone] Reason for Visit * Reason Onset Date Comments MyChart Communication 01/26/2020 swimmers i tch Encounter Details Date Type Department Care Team (Late st Contact Info) Description 01/26/2020 [facility] Medical Advice [facility], [address] [place] [address] [place] [address] [address] [address] [employer]Bits Electronics[employer] Communication (swimmers itch) Social History Tobacco Use Types Packs/Day Years Used Date Smoking Tobacco: Never Smokeless Tobacco: Never Alcohol Use Standard Drinks/Week Comments Yes 0 (1 standard drink = 0.6 oz pur e alcohol) 3 times weekly PHQ-2 Answer Date Recorded PHQ-2 Score 0 01/30/2020 Comments No Sex and Gender Information Value Date Recorded Sex Assigned at Female 10/15/2018 5:37 PM CLIPPER OPERATOR Legal Sex Female 3:33 AM CLIPPER OPERATOR Gender Identity Female 10/15/2018 5:37 PM CLIPPER OPERATOR Sexual Orientation Straight 10/15/2018 5: 37 PM CLIPPER OPERATOR documented as of this encounter Miscellaneous Notes * Telephone Encounter - Coty Plascencia RN - 01/27/2020 3:21 PM CDT Sent [employer] message Coty Plascencia RN, BSN Message handled by CLINIC NURSE. documented in this encounter Plan of Treatment Not on file documented as of this encounter Visit Diagnoses Not on filedocumented in this encounter Additional Health Concerns Assessment Noted Time PHQ-9 Depression Total Score: 12 01/08/ 020 7:04 AM CDT documented as of this encounter Care Teams Consultative Sales Associate Relationship Specialty Start [place] [address] [address] [address] PCP - General Family Practice 03/21/11 Kayy Allen RPH [address] [place] [address] Pharmacist Pharmacist 02/28/19 07/21/20 [place] [address] [address] [address] Assigned PCP 05/05/19 02/08/20 [place] [address] [place] [address] Assigned PCP 02/09/20 01/30/21 Sissy Herrera [facility] [address] [place], [place] [id number] Pharmacist Pharmacist 07/22/20 Risa Mcdowell MD [address] [facility] [address] [place] [address] Assigned OBGYN Provider 12/13/2006/03 Brandi Gutierrez MD PRIMARY ENT [address] [facility] [address] [facility] [address] [place], [place] [address] Assigned PCP 01/31/21 06/19/21 [place] [address] [place], [place] [address] Assigned PCP 06/20/21 01/07/22 [place] [address] [place], [place] [address] Assigned PCP 01/08/22 07/07/23 Jr Chaparro PA-C [address] [place], [place] [address] Assigned PCP 07/08/23 Nirmala Castrejon, RD [address] [place] [address] [address] [place] [address] Registered Dietitian Dietitian, Registered 04/23/24 documented as of this encounter
--- OUTSIDE RECORDS SUMMARY | 2024-06-20 18:12 | XMS_ITS | Encounter Summary ---
Author Organization [place] Address [facility] [place] [address] Care Team Providers Care Interlocking Pavement Installer Name Role Phone Maureen Centeno MD Primary Care Provider Sissy Herrera [facility] Unavailable [phone] Jr Chaparro PA-C Unavailable [phone] Reason for Referral * Nutrition (Routine: Next available opening) - Pending Review Specialty Diagnoses / Procedures Referred By Contstephen t Referred To Contact Diagnoses Elevated glucose Mixed hyperlipidemia Jr Chaparro PA-C [address] [place] [address] Phone: tel: fax: Referral ID Status Reason Start Date Expiration Date V isits Requested Visits Authorized [id number] Pending Review 04/22/2024 04/22/2025 1 1 Question Answer Type of nutritional instruction needed? Overweight/Obesity Scheduling Instructions: [facility] will call you to coordinate your care as prescribed by your provider. If you don't hear from a customer service representative teacher within 2 business days, please call . Additional Information: pre diabetes, elevated lipids Comments Please be aware that coverage of these services is subject to the terms and limitations of your health insurance plan. Call member services at your health plan with any benefit or coverage questions. [facility] will call you to coordinate your care as prescribed by your provider. If you don't hear from a customer service representative teacher within 2 business days, please call . Encounter Details Date Type Department Care Team (Late st Contact Info) Description 04/18/2024 MyC Medical Advice [facility] [address] [place] [address] Jr Chaparro PA-C [address] [place] [address] Elevated glucose (Primary Dx); Mixed hyperlipidemia Social History Tobacco Use Types Packs/Day Years [...] re latives? Once a week 04/17/2024 Attends Religion Services Not on file 04/17 Active Member [...] Answer Date Recorded PHQ-2 Score 2 04/18/2024 [facility] - Occupational Stress [...] in an abandoned building, in an overnight intermediate, or couch-surfing.) Yes 04/17/2024 Are you worried [...] Sex Assigned at Female 10/15/2018 5:37 PM NEWSPAPER PRESS OPERATOR APPRENTICE Legal Sex Female 3:33 AM NEWSPAPER PRESS OPERATOR APPRENTICE Gender Identity Female 10/15/2018 5:37 PM NEWSPAPER PRESS OPERATOR APPRENTICE Sexual Orientation Straight 10/15/2018 5: 37 PM NEWSPAPER PRESS OPERATOR APPRENTICE documented as of this encounter Miscellaneous Notes * Telephone Encounter - Jr Chaparro PA-C - 04/22/2024 1:39 PM CDT I can sign the referral, not a problem. If she wants to discus more the pre-diabetes and elevated lipids (med options) then yes, have her schedule an appointment. Thanks! * Telephone Encounter - Estella Szymanski RN - 04/19/2024 9:04 AM CDT Would you like appt to discuss lab results? Nutrition referral pended, please edit as needed. Estella Szymanski RN, BSN [facility] documented in this encounter Plan of Treatment Scheduled Referrals Name Type Priority Associated Diagnoses Orde r Schedule Adult Nutrition Marinator Referral Referral Routine: Next available opening Elevated glucose Mixed hyperlipidemia Expected: 04/22/2024 (Approximate), Expires: 04/19/2025 documented as of this encounter Visit Diagnoses Diagnosis Elevated glucose- Primary Other abnormal glucose Mixed hyperlipidemia documented in this encounter Additional Health Concerns Assessment Noted Time PHQ-9 Depression Total Score: 10 024 5:54 PM CDT documented as of this encounter Care Teams Interlocking Pavement Installer Relationship Specialty [place] [address] [place] [address] PCP - General Family Practice 03/21/11 Sissy Herrera RPH [address] [place] [address] Pharmacist Pharmacist 07/22/20 Jr Chaparro PA-[place] [address] [place] [address] Assigned PCP 07/08/23 documented as of this encounter
--- OUTSIDE RECORDS SUMMARY | 2024-06-20 18:12 | XMS_ITS | Encounter Summary ---
Author Organization [place] Address [address] [place] [address]. [place] [address] Care Team Providers Care Bus Person Name Role Phone Maureen Centeno MD Primary Care Provider Sissy Herrera [facility] Unavailable [phone] Risa Mcdowell MD Unavailable [phone] Maureen Centeno MD Unavailable [phone] Alejandro Mccarty MD Unavailable Jr Chaparro PA-C Unavailable [phone] Unavailable [phone] Encounter Details Date Type Department Care Team (Late st Contact Info) Description 10/18/2021 [facility] [place] [facility] [address] [place] [address] Edouard Araujo RN Social History Tobacco Use Types Packs/Day Years Used Date Smoking Tobacco: Never Smokeless Tobacco: Never Comments:Parents smoked for first 17 years of my life Alcohol Use Standard Drinks/Week Comments Yes 0 (1 standard drink = 0.6 oz pur e alcohol) 3 times weekly PHQ-2 Answer Date Recorded PHQ-2 Score 2 08/24/2021 Comments No Sex and Gender Information Value Date Recorded Sex Assigned at Female 10/15/2018 5:37 PM COMPLIANCE FIELD TECHNICIAN Legal Sex Female 3:33 AM COMPLIANCE FIELD TECHNICIAN Gender Identity Female 10/15/2018 5:37 PM COMPLIANCE FIELD TECHNICIAN Sexual Orientation Straight 10/15/2018 5: 37 PM COMPLIANCE FIELD TECHNICIAN documented as of this encounter Plan of Treatment Not on file documented as of this encounter Visit Diagnoses Not on filedocumented in this encounter Additional Health Concerns Assessment Noted Time PHQ-9 Depression Total Score: 10 021 12:09 PM CDT documented as of this encounter Care Teams Bus Person Relationship Specialty Start [place] [address] [address] [address] PCP - General Family Practice 03/21/11 Sissy Herrera RPH [address] [place], [place] [phone] Pharmacist Pharmacist 07/22/20 Risa Mcdowell MD [address] [address] Assigned OBGYN Provider 12/13/2006/03 [place] [address] [address] [id number] Assigned PCP 06/20/21 01/07/22 [place] [address] [address] [id number] Assigned PCP 01/08/22 07/07/23 Jr Chaparro PA-C [address] [address] [id number] Assigned PCP 07/08/23 Nirmala Castrejon, RD [address] [place] [address] [address] [place] [address] Registered Dietitian Dietitian, Registered 04/23/24 documented as of this encounter
--- OUTSIDE RECORDS SUMMARY | 2024-06-20 18:12 | XMS_ITS | Encounter Summary ---
Author Organization [place] Address [address] [place] [address]. [place] [address] Care Team Providers Care Licensed Tax Consultant Name Role Phone Maureen Centeno MD Primary Care Provider Kayy Allen [facility] Unavailable Unavailable Maureen Centeno MD Unavailable [phone] Sissy Herrera [facility] Unavailable [phone] Risa Mcdowell MD Unavailable [phone] EmilyBrandi Stevens MD Unavailable + Maureen Centeno MD Unavailable [phone] Alejandro Mccarty MD Unavailable Jr Chaparro PA-C Unavailable + [phone] Unavailable [phone] Reason for Visit * Reason Comments Medication Refill Encounter Details Date Type Department Care Team (Late st Contact Info) Description 06/12/2020 Refill [facility], [address] [place] [address] [place] [address] [place] [address] Medication Refill Social History Tobacco Use Types Packs/Day Years Used Date Smoking Tobacco: Never Smokeless Tobacco: Never Alcohol Use Standard Drinks/Week Comments Yes 0 (1 standard drink = 0.6 oz pur e alcohol) 3 times weekly PHQ-2 Answer Date Recorded PHQ-2 Score 2 06/16/2020 Comments No Sex and Gender Information Value Date Recorded Sex Assigned at Female 10/15/2018 5:37 PM SALES OPERATIONS Legal Sex Female 3:33 AM SALES OPERATIONS Gender Identity Female 10/15/2018 5:37 PM SALES OPERATIONS Sexual Orientation Straight 10/15/2018 5: 37 PM SALES OPERATIONS documented as of this encounter Miscellaneous Notes * Telephone Encounter - Olga Bond RN - 06/15/2020 1:47 PM CST Images from the original note were not included. Below states she is changing med. Appt 06/17/20 with Jr. Can discuss at visit. FYI to Jr. Olga Bond RN May 20, 2020 Me ?? 5:50 PM Note Called patient and let her know refill was sent to mail order yesterday. She states that is fine. Advised she could call to see if processed yet. She is changing medications with psych. Patient is coming for PE. Nothing further needed at this time. Olga Bond RN ? 3:00 PM Shadia Guzman routed this conversation to Cr RefShadia Larson ?? 3:00 PM Note Called pt-physical appt scheduled for 06/17/2020 with Jr Chaparro. Pt also stated that she is working with her phsychologist to find a different medication-please cancel this refill. ?? Hannah Guzman/DAMIÁN S OPERATIONS documented in this encounter Plan of Treatment Not on file documented as of this encounter Visit Diagnoses Diagnosis Depression, major, recurrent, moderate (H) Major depressive disorder, recurrent episode, moderate documented in this encounter Additional Health Concerns Assessment Noted Time PHQ-9 Depression Total Score: 14 020 7:05 AM CDT documented as of this encounter Care Teams Licensed Tax Consultant Relationship Specialty Start [place] [address] [place] [address] PCP - General Family Practice 03/21/11 Kayy Allen [facility] [address] [place] [address] Pharmacist Pharmacist 02/28/19 07/21/20 [place] [address] [place] [address] Assigned PCP 02/09/20 01/30/21 Sissy Herrera [facility] [address] [place] [address] Pharmacist Pharmacist 07/22/20 Risa Mcdowell MD [address] [place], [place] [address] Assigned OBGYN Provider 12/13/2006/03 Brandi Gutierrez MD PRIMARY ENT [address] [place], [place] [address] Assigned PCP 01/31/21 06/19/21 [place] [address] [place] [address] Assigned PCP 06/20/21 01/07/22 [place] [address] [place] [address] Assigned PCP 01/08/22 07/07/23 Jr Chaparro PA-C [address] [place] [address] Assigned PCP 07/08/23 Nirmala Castrejon, RD [address] [place] [address] 84 [place], [place] [address] Registered Dietitian Dietitian, Registered 04/23/24 documented as of this encounter
--- OUTSIDE RECORDS SUMMARY | 2024-06-20 18:12 | XMS_ITS | Encounter Summary ---
Author Organization [place] Address [address] [place] [address] Care Team Providers Care Laundry Bag Punch Operator Name Role Phone Maureen Centeno MD Primary Care Provider Sissy Herrera [facility] Unavailable [phone] Risa Mcdowell MD Unavailable [phone] Brandi Gutierrez MD Unavailable + Maureen Centeno MD Unavailable [phone] Alejandro Mccarty MD Unavailable Jr Chaparro PA-C Unavailable [phone] Unavailable + [phone] Encounter Details Date Type Department Care Team (Late st Contact Info) Description 02/10/2021 [facility] [place] [address] [address] Kelsie Marroquin Social History Tobacco Use Types Packs/Day Years Used Date Smoking Tobacco: Never Smokeless Tobacco: Never Alcohol Use Standard Drinks/Week Comments Yes 0 (1 standard drink = 0.6 oz pur e alcohol) 3 times weekly PHQ-2 Answer Date Recorded PHQ-2 Total Score (Adult) - Positive if 3 or more points; Administer PHQ-9 if positive 2 02/10/2021 Comments No Sex and Gender Information Value Date Recorded Sex Assigned at Female 10/15/2018 5:37 PM WEB DEVELOPMENT CONSULTANT Legal Sex Female 3:33 AM WEB DEVELOPMENT CONSULTANT Gender Identity Female 10/15/2018 5:37 PM WEB DEVELOPMENT CONSULTANT Sexual Orientation Straight 10/15/2018 5: 37 PM WEB DEVELOPMENT CONSULTANT documented as of this encounter Plan of Treatment Not on file documented as of this encounter Visit Diagnoses Not on filedocumented in this encounter Additional Health Concerns Assessment Noted Time PHQ-9 Depression Total Score: 5 02/12/20 21 7:05 AM CDT documented as of this encounter Care Teams Laundry Bag Punch Operator Relationship Specialty [place] [address] [facility] [address] PCP - General Family Practice 03/21/11 Sissy Herrera RP [address] [place] [address] Pharmacist Pharmacist 07/22/20 Risa Mcdowell MD [address] [facility] [address] [place] [address] Assigned OBGYN Provider 12/13/2006/03 Brandi Gutierrez MD PRIMARY ENT [address] [place], [place] [address] Assigned PCP 01/31/21 06/19/21 [place] [address] [facility] [address] Assigned PCP 06/20/21 01/07/22 [place] [address] [place] [address] Assigned PCP 01/08/22 07/07/23 Jr Chaparro PA-[place] [address] [place] [address] Assigned PCP 07/08/[address] [place] [address] 84 [place] [address] Registered Dietitian Dietitian, Registered 04/23/24 documented as of this encounter
--- OUTSIDE RECORDS SUMMARY | 2024-06-20 18:12 | XMS_ITS | Encounter Summary ---
Author Organization [place] Address [address] [place] [address]. [place] [address] Care Team Providers Care Cyber Forensics Analyst Name Role Phone Maureen Centeno MD Primary Care Provider Sissy Herrera [facility] Unavailable [phone] Alejandro Mccarty MD Unavailable Jr ChaparorC Unavailable + [phone] Unavailable [phone] Encounter Details Date Type Department Care Team (Late st Contact Info) Description 07/28/2022 MyC Medical Advice [facility] [address] [place] [address] Jr Chaparro PA-C [address] [place] [address] Urinary urgency (Primary Dx) Social History Tobacco Use Types Packs/Day Years Used Date Smoking Tobacco: Never Smokeless Tobacco: Never Comments:Parents smoked for first 17 years of my life Alcohol Use Standard Drinks/Week Comments Yes 0 (1 standard drink = 0.6 oz pur e alcohol) 3 times weekly PHQ-2 Answer Date Recorded PHQ-2 Score 2 07/28/2022 Comments No Sex and Gender Information Value Date Recorded Sex Assigned at Female 10/15/2018 5:37 PM CHALK MACHINE OPERATOR Legal Sex Female 3:33 AM CHALK MACHINE OPERATOR Gender Identity Female 10/15/2018 5:37 PM CHALK MACHINE OPERATOR Sexual Orientation Straight 10/15/2018 5: 37 PM CHALK MACHINE OPERATOR COVID-19 Exposure Response Date Recorded In the last 10 days, have yo u been in contact with someone who was confirmed or suspected to have Coronavirus/COVID-19? No / Unsure 07/28/2022 9:32 AM CHALK MACHINE OPERATOR documented as of this encounter Miscellaneous Notes * Telephone Encounter - Elisa Gonzales RN - 07/29/2022 11:18 AM CST Images from the original note were not included. Jr Chaparro PA-C Rm Triage 2 hours ago (9:03 AM) AP Diflucan pended. ??Not sure what pharmacy. ??Yesterday she did tell me [facility] but I know I [facility]the abx [facility]. ??If you can sign when you know, go ahead. ??Or send back to me and I'll sign. Prescription sent to [facility] per this written order. Patient informed. Elisa Gonzales RN K MACHINE OPERATOR * Telephone Encounter - Elisa Gonzales RN - 07/28/2022 5:05 PM CST Please see request for diflucan. Elisa Gonzales RN K MACHINE OPERATOR * Telephone Encounter - Jr Chaparro PA-C - 07/28/2022 3:07 PM CHALK MACHINE OPERATOR I'll send in the abx, she can pick out hand and start or wait for culture results. That will be tomorrow or Monday. Jr K MACHINE OPERATOR * Telephone Encounter - Say Rai RN - 07/28/2022 1:50 PM CHALK MACHINE OPERATOR Please see MyChart message in reference to abx . Routed to PCP, Please review and advise. Thank you, Say Rai, RN K MACHINE OPERATOR documented in this encounter Plan of Treatment Not on file documented as of this encounter Visit Diagnoses Diagnosis Urinary urgency- Primary Urgency of urination documented in this encounter Additional Health Concerns Assessment Noted Time PHQ-9 Depression Total Score: 8 07/28/20 9:57 AM CHALK MACHINE OPERATOR documented as of this encounter Care Teams Cyber Forensics Analyst Relationship Specialty [place] [address] [place], [place] [id number] PCP - General Family Practice 03/21/11 Sissy Herrera RPH [address] [place], [place] [phone] Pharmacist Pharmacist 07/22/20 [place] [address] [address] [place], [place] [address] Assigned PCP 01/08/22 07/07/23 Jr Chaparro PA-C [address] [facility] [address] Assigned PCP 07/08/23 Nirmala Castrejon, LISA [address] [facility] [address] [place] [address] Registered Dietitian Dietitian, Registered 04/23/24 documented as of this encounter
--- OUTSIDE RECORDS SUMMARY | 2024-06-20 18:12 | XMS_ITS | Encounter Summary ---
Author Organization [place] Address [address] [place] [address] Care Team Providers Care Sdv Pilot/Navigator/Dds Operator Name Role Phone Maureen Centeno MD Primary Care Provider Sissy Herrera [facility] Unavailable [phone] Jr Chaparro PA-C Unavailable [phone] Unavailable [phone] Encounter Details Date Type Department Care Team (Latest Contact Info) Description 05/22/2024 Travel Social History Tobacco Use Types Packs/Day Years [...] Answer Date Recorded PHQ-2 Score 2 04/18/2024 [facility] - Occupational Stress Questionnaire Answer Date Recorded [...] in an abandoned building, in an overnight senior care, or couch-surfing.) Yes 04/17/2024 Are you worried [...] Sex Assigned at Female 10/15/2018 5:37 PM DESIGN MAKER Legal Sex Female 3:33 AM DESIGN MAKER Gender Identity Female 10/15/2018 5:37 PM DESIGN MAKER Sexual Orientation Straight 10/15/2018 5: 37 PM DESIGN MAKER documented as of this encounter Plan of Treatment Not on file documented as of this encounter Visit Diagnoses Not on filedocumented in this encounter Additional Health Concerns Assessment Noted Time PHQ-9 Depression Total Score: 10 024 5:54 PM CDT documented as of this encounter Care Teams Sdv Pilot/Navigator/Dds Operator Relationship Specialty [place] [address] [facility] [place] [address] PCP - General Family Practice 03/21/11 Sissy Herrera RPH [address] [place] [address] Pharmacist Pharmacist 07/22/20 Jr Chaparro PA-C [address] [facility] [place] [address] Assigned PCP 07/08/[address] [place] [address] 84 [place] [address] Registered Dietitian Dietitian, Registered 04/23/24 documented as of this encounter
--- OUTSIDE RECORDS SUMMARY | 2024-06-20 18:12 | XMS_ITS | Encounter Summary ---
Author Organization [place] Address [address] [place] [address] Care Team Providers Care Assembler Small Products Name Role Phone Maureen Centeno MD Primary Care Provider Sissy Herrera [facility] Unavailable [phone] Risa Mcdowell MD Unavailable [phone] EmilyBrandi Stevens MD Unavailable + Maureen Centeno MD Unavailable [phone] Alejandro Mccarty MD Unavailable Jr Chaparro PA-C Unavailable [phone] Unavailable + [phone] Reason for Visit * Reason Comments Medication Refill Encounter Details Date Type Department Care Team (Late st Contact Info) Description 06/18/[address] [address] Manuela Craig APRN CNP Medication Refill Social History Tobacco Use Types Packs/Day Years Used Date Smoking Tobacco: Never Smokeless Tobacco: Never Comments:Parents smoked for first 17 years of my life Alcohol Use Standard Drinks/Week Comments Yes 0 (1 standard drink = 0.6 oz pur e alcohol) 3 times weekly PHQ-2 Answer Date Recorded PHQ-2 Score 3 06/17/2021 Comments No Sex and Gender Information Value Date Recorded Sex Assigned at Female 10/15/2018 5:37 PM WOOD SCALER Legal Sex Female 3:33 AM WOOD SCALER Gender Identity Female 10/15/2018 5:37 PM WOOD SCALER Sexual Orientation Straight 10/15/2018 5: 37 PM WOOD SCALER COVID-19 Exposure Response Date Recorded In the last month, have you been in contact with someone who was confirmed or suspected to have Coronavirus / COVID-19? No / Unsure 06/21/2021 10:51 AM WOOD SCALER documented as of this encounter Plan of Treatment Not on file documented as of this encounter Visit Diagnoses Diagnosis Abrasion of left ear canal, initial encounter documented in this encounter Additional Health Concerns Assessment Noted Time PHQ-9 Depression Total Score: 10 021 12:09 PM CDT documented as of this encounter Care Teams Assembler Small Products Relationship Specialty Start [place] [address] [place] [address] PCP - General Family Practice 03/21/11 Sissy Herrera RPH [address] [place] [address] Pharmacist Pharmacist 07/22/20 Risa Mcdowell MD [address] [facility], [facility] [address] [place] [address] Assigned OBGYN Provider 12/13/2006/03 Brandi Gutierrez MD PRIMARY ENT [address] [facility] [address] [place] [address] Assigned PCP 01/31/21 06/19/21 [place] [address] [place] [address] Assigned PCP 06/20/21 01/07/22 [place] [address] [place] [address] Assigned PCP 01/08/22 07/07/23 Jr Chaparro PA-[place] [address] [place] [address] Assigned PCP 07/08/23 Nirmala Castrejon, RD [address] [place] [address] [address] [place] [address] Registered Dietitian Dietitian, Registered 04/23/24 documented as of this encounter
--- OUTSIDE RECORDS SUMMARY | 2024-06-20 18:12 | XMS_ITS | Encounter Summary ---
Author Organization [place] Address [address] [place] [address] Care Team Providers Care Contracting Engineer Name Role Phone Maureen Centeno MD Primary Care Provider Sissy Herrera [facility] Unavailable [phone] Jr Chaparro PA-C Unavailable [phone] Encounter Details Date Type Department Care Team (Latest Contact Info) Description 04/18/2024 Travel Social History Tobacco Use Types Packs/Day [...] re latives? Once a week 04/17/2024 Attends Mosque Services Not on file 04/17 Active Member [...] Answer Date Recorded PHQ-2 Score 2 04/18/2024 [facility] - Occupational Stress Questionnaire Answer Date Recorded [...] in an abandoned building, in an overnight halfway, or couch-surfing.) Yes 04/17/2024 Are you worried [...] Sex Assigned at Female 10/15/2018 5:37 PM DEPUTY SHERIFF K9 HANDLER Legal Sex Female 3:33 AM DEPUTY SHERIFF K9 HANDLER Gender Identity Female 10/15/2018 5:37 PM DEPUTY SHERIFF K9 HANDLER Sexual Orientation Straight 10/15/2018 5: 37 PM DEPUTY SHERIFF K9 HANDLER documented as of this encounter Plan of Treatment Not on file documented as of this encounter Visit Diagnoses Not on filedocumented in this encounter Additional Health Concerns Assessment Noted Time PHQ-9 Depression Total Score: 10 024 5:54 PM CDT documented as of this encounter Care Teams Contracting Engineer Relationship Specialty [place] [address] [place] [address] PCP - General Family Practice 03/21/11 Sissy Herrera RPH [address] [place] [address] Pharmacist Pharmacist 07/22/20 Jr Chaparro PA-C [address] [place] [address] Assigned PCP 07/08/23 documented as of this encounter
--- OUTSIDE RECORDS SUMMARY | 2024-06-20 18:12 | XMS_ITS | Encounter Summary ---
Author Organization [place] Address [address] [place] [address]. [place] [address] Care Team Providers Care Risk Assessment Consultant Name Role Phone Maureen Centeno MD Primary Care Provider Sissy Herrera [facility] Unavailable [phone] Jr Chaparro PA-C Unavailable [phone] Unavailable [phone] Reason for Visit * Nutrition (Routine: Next available opening) - Pending Review Specialty Diagnoses / Procedures Referred By Contac t Referred To Contact Diagnoses Elevated glucose Mixed hyperlipidemia Jr Chaparro PA-C [address] [place] [address] Phone: tel: fax: Referral ID Status Reason Start Date Expiration Date V isits Requested Visits Authorized [id number] Pending Review 04/22/2024 04/22/2025 1 1 Encounter Details Date Type Department Care Team (Late st Contact Info) Description 05/17/2024 10:00 AM CDT Virtual Visit [facility] [id number] [place] [address] Jr Chaparro PA-C [address] [place] [address] Nirmala Castrejon, RD [address] [facility] [address] [place] [address] Elevated glucose; Mixed hyperlipidemia Social History Tobacco Use Types [...] re latives? 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 Legal Sex Female 3:33 AM PULP DRIER FIRER Gender Identity Female 10/15/2018 5:37 PM PULP DRIER FIRER Sexual Orientation Straight 10/15/2018 5: 37 PM PULP DRIER FIRER documented as of this encounter Patient Instructions * Patient Instructions* Nirmala Castrejon, RD - 05/17/2024 10:00 AM CDT Jay Beauchamp, Here are some resources that you might find helpful (see your email): --Sources of protein --High fiber diet --Fiber content of foods --Mediterranean diet --1400 calorie meal plan --Carbohydrates Link for fish oil: www.PivotLink Link to Metamucil powder www.K[employer]/en-us/products/fiber-powders/?bppssne=[id number] [email or web address] Nutrition Goals: --Fluids: 48-64+ oz/day (non-caffeine) --Protein: 60-75 grams/day --Calories: 6518-1375/day --Fiber: 25-35 grams/day (try to find grains, cereals, rice etc with at least 3 g fiber per serving) --Vitamin D3 - 1000IU/day --Fairfield 3 fish oil: 1,000mg/day Please reach out to me if you have any questions! Be well, Nirmala Holt RD, ENTERPRISE SECURITY ARCHITECT, LD Board Certified Specialist in Oncology Nutrition [facility] [email or web address] Office: [phone] documented in this encounter Progress Notes * Nirmala Castrejon RD - 05/17/2024 10:00 AM CDT Video-Visit Details Type of service: Video Visit Video Start Time (time video started): 9:49am Video End Time (time video stopped): 10:33am Originating Location (pt. Location): Home Distant Location (provider location): [facility] NUTRITION SERVICES Mode of Communication: Video Conference via [facility] CLINICAL NUTRITION SERVICES - ASSESSMENT NOTE Quynh Chan 48 year old referred for MNT related to Obesity Time Spent: 44 minutes Visit Type: video-->phone call due to connectivity issues Accompanied by: self Referring Physician: Jr Chaparro 04/22 R73.09 (ICD-10-CM) - Elevated glucose E78.2 (ICD-10-CM) - Mixed hyperlipidemia Additional Information: pre diabetes, elevated lipids NUTRITION HISTORY Current diet: general diet Previous diets/fad diets: Noom, Weight Watchers, Livea She is currently during a 6 month trial of My Diabetes sanjay which allows her to log Walking her dog every day. stretches. Quynh Dubose presents today to obtain guidance on her nutrition for desired weight loss, improved BG control and heart health. She expresses her frustration with lack of weight loss despite diet and behavioral changes. She has cut out calorie containing beverages. She has tracked her intake and tried to keep her calories below 1700/day. She inquires about weight loss medications as she has heard they have been helpful with friends of hers. Diet Recall Breakfast [place] banana smoothie Lunch skips Dinner Protein, grain, vegetable Snacks Handful of grapes, berries, pineapple Beverages 48 oz water, Zero sugar [address] Pepper ANTHROPOMETRICS Height: 64 Weight: 197 lbs/89kg BMI: 33 Weight Status: Obesity Grade I BMI 30-34.9 Weight History: Wt Readings from Last 8 Encounters: 04/18/24 89.4 kg (197 lb 1.6 oz) 07/11/23 89.4 kg (197 lb) 02/21/23 90.7 kg (200 lb) 07/28/22 92.3 kg (203 lb 6.4 oz) 04/05/22 89.4 kg (197 lb) 03/29/22 89.7 kg (197 lb 12.8 oz) 12/29/21 86.5 kg (190 lb 12.8 oz) 06/17/21 87.9 kg (193 lb 12.8 oz) Dosing Weight: 63kg Medications/vitamins/minerals/herbals: Reviewed Labs: Reviewed ASSESSED NUTRITION NEEDS: Estimated Energy Needs: 7544-4377 kcals (20-25 Kcal/Kg) Justification: overweight Estimated Protein Needs: 60-70 grams protein (0.8-1 g pro/Kg) Justification: maintenance NUTRITION DIAGNOSIS: Obesity related to self-monitoring deficit, excessive caloric intake AEB diet recall BMI >30 INTERVENTIONS Provided written & verbal education: --Discussed dietary and behavioral modifications to promote weight loss (portion control, meal consistency/timing, fiber sources, mindfulness, protein sources and exercise) --Reviewed calorie goals for desired wt loss. Encouraged to limit calories to < 1600 daily. Emphasized importance of tracking daily intake for accountability and to ensure adequacy. --Reviewed fiber content of foods and role it plays in heart health, BG control, appetite control etc. Encouraged to aim for at least 25 grams/day. Encouraged to choose grains, breads etc with at least 3g fiber per serving. --Discussed protein intake. Encouraged to aim for at least 60 grams/day. --Reviewed and encouraged Mediterranean nutrition therapy for heart health and lowering chol. --Reviewed nutrition supplements and encouraged to start taking Fairfield 3 fish oil and vitamin D. --Reviewed GLP-1 weight loss medications. Encouraged to inquire about Rx from PCP if interested as she has been working on calorie restriction with several programs now and in the past. Provided pt with corresponding education materials/handouts on: --Sources of protein --High fiber diet --Fiber content of foods --Mediterranean diet --1400 calorie meal plan --Carbohydrates Link for fish oil: www.PivotLink Link to Metamucil powder www.[employer]/en-us/products/fiber-powders/?tmfjtnn=[id number] [id number] Pt verbalize understanding of materials provided during consult. Patient Understanding: Excellent Expected Compliance: Excellent Goals --Continue tracking daily intake via [employer] App Store or My Diabetic Sanjay as able --Weight loss (0.5-1.0 lb /week desirable) --Fluids: 48-64+ oz/day (non-caffeine) --Protein: 60-75 grams/day --Calories: 9020-0490/day --Fiber: 25-35 grams/day (try to find grains, cereals, rice etc with at least 3 g fiber per serving) --Vitamin D3 - 1000IU/day --Fairfield 3 fish oil: 1,000mg/day Follow-Up Plans: Pt has RD contact information for questions. Nirmala Holt RD, ENTERPRISE SECURITY ARCHITECT, LD documented in this encounter Plan of Treatment Not on file documented as of this encounter Visit Diagnoses Diagnosis Elevated glucose Other abnormal glucose Mixed hyperlipidemia documented in this encounter Additional Health Concerns Assessment Noted Time PHQ-9 Depression Total Score: 024 5:54 PM CDT documented as of this encounter Care Teams Risk Assessment Consultant Relationship Specialty [place] [address] [place] [place] [address] PCP - General Family Practice 03/21/11 Sissy Herrera RPH [address] [place] [address] Pharmacist Pharmacist 07/22/20 Jr Chaparro PA-C [address] [place] [address] Assigned PCP 07/08/23 Nirmala Castrejon, RD [address] [place] [address] [address] [place], [place] [id number] Registered Dietitian Dietitian, Registered 04/23/24 documented as of this encounter
--- OUTSIDE RECORDS SUMMARY | 2024-06-20 18:12 | XMS_ITS | Encounter Summary ---
Author Organization [place] Address [address] [place] [address] Care Team Providers Care Band Saw Filer Name Role Phone Maureen Centeno MD Primary Care Provider Sissy Herrera [facility] Unavailable [phone] Risa Mcdowell MD Unavailable [phone] Brandi Gutierrez MD Unavailable + Maureen Centeno MD Unavailable [phone] Alejandro Mccarty MD Unavailable Jr Chaparro PA-C Unavailable [phone] Unavailable + [phone] Encounter Details Date Type Department Care Team (Latest Contact Info) Description 06/17/2021 Historic Results Social History Tobacco Use Types Packs/Day Years [...] Sex Assigned at Female 10/15/2018 5:37 PM 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 No / Unsure 06/17/2021 11:00 AM CDT documented as of this encounter Plan of Treatment Not on file documented as of this encounter Visit Diagnoses Not on filedocumented in this encounter Additional Health Concerns Assessment Noted Time PHQ-9 Depression Total Score: 10 021 12:09 PM CDT documented as of this encounter Care Teams Band Saw Filer Relationship Specialty [place] [address] [place] [address] PCP - General Family Practice 03/21/11 Sissy Herrera [facility] [address] [place] [address] Pharmacist Pharmacist 07/22/20 Risa Mcdowell MD [address] [facility], [facility] [address] [place] [address] Assigned OBGYN Provider 12/13/2006/03 Brandi Gutierrez MD PRIMARY ENT [address] [place], [place] [address] Assigned PCP 01/31/21 06/19/21 [place] [address] [place] [address] Assigned PCP 06/20/21 01/07/22 [place] [address] [place] [address] Assigned PCP 01/08/22 07/07/23 Jr Chaparro PA-[place] [address] [place] [address] Assigned PCP 07/08/23 Nirmala Castrejon, LISA [address] [place] [address] [address] [place], [place] [address] Registered Dietitian Dietitian, Registered 04/23/24 documented as of this encounter
--- OUTSIDE RECORDS SUMMARY | 2024-06-20 18:12 | XMS_ITS | Encounter Summary ---
Author Organization [facility] Address [address] [place] [address]. [place] [address] Care Team Providers Care Certified Pediatric Nurse Practitioner Name Role Phone Maureen Centeno MD Primary Care Provider Sissy Herrera [facility] Unavailable [phone] Jr Chaparro PA-C Unavailable Reason for Visit * Reason Onset Date Comments Physical Imm/Inj 04/18/2024 Flu Shot Encounter Details Date Type Department Care Team (Late st Contact Info) Description 04/18/2024 7:00 AM CDT Office Visit [facility] [address] [place] [address] Jr Chaparro PA-C [address] [place] [address] Routine general medical examination at a health care facility (Primary Dx); Bipolar affective disorder, remission status unspecified (H); Depression, major, recurrent, moderate (H); Benign essential hypertension; Acute dermatitis; Need for prophylactic vaccination and inoculation against influenza; HSV (herpes simplex virus) infection; Gastroesophageal reflux disease, unspecified whether esophagitis present; Elevated glucose Social History Tobacco Use Types Packs/Day Years [...] re latives? Once a week 04/17/2024 Attends [employer] Not on file 04/17 Active Member [...] Answer Date Recorded PHQ-2 Score 2 04/18/2024 [facility] - [...] Answer Date Recorded Do you have housing? (Marisain g is defined as stable permanent housing and does not include staying ouside in a car, in a tent, in an abandoned building, in an overnight mcfp, or couch-surfing.) Yes 04/17/2024 Are you worried [...] Sex Assigned at Female 10/15/2018 5:37 PM [employer] Legal Sex Female 3:33 AM [employer] Gender Identity Female 10/15/2018 5:37 PM [employer] Sexual Orientation Straight 10/15/2018 5: 37 PM [employer] documented as of this encounter Last Filed Vital Signs Vital Sign Reading Time Taken Comments Blood Pressure 128/80 04/18/2024 6:49 AM CDT Pulse 74 04/18/2024 6:49 AM CDT Temperature 36.6 ??C (97.8 ??F) 04/18/2024 6:49 AM CD T Respiratory Rate 16 04/18/2024 6:49 AM CDT Oxygen Saturation 100% 04/18/2024 6:49 AM CDT Inhaled Oxygen Concentration - - Weight 89.4 kg (197 lb 1.6 oz) 04/18/2024 6:49 A M CDT Height 163.8 cm (5' 4.5) 04/18/2024 6:49 AM CDT Body Mass Index 33.31 04/18/2024 6:49 AM CDT documented in this encounter Patient Instructions * Patient Instructions* Jr Chaparro PA-C - 04/18/2024 7:00 AM CDT Patient Education Preventive Care Advice This is general advice given by our system to help you stay healthy. However, your care team may have specific advice just for you. Please talk to your care team about your preventive care needs. Nutrition Eat 5 or more servings of fruits and vegetables each day. Try wheat bread, brown rice and whole grain pasta (instead of white bread, rice, and pasta). Get enough calcium and vitamin D. Check the label on foods and aim for 100% of the CLOTH TESTER QUALITY (recommendeddaily allowance). Lifestyle Exercise at least 150 minutes each week (30 minutes a day, 5 days a week). Do muscle strengthening activities 2 days a week. These help control your weight and prevent disease. No smoking. Wear sunscreen to prevent skin cancer. Have a dental exam and cleaning every 6 months. Yearly exams See your health care team every year to talk about: Any changes in your health. Any medicines your care team has prescribed. Preventive care, family planning, and ways to prevent chronic diseases. Shots (vaccines) HPV shots (up to age 26), if you've never had them before. Hepatitis B shots (up to age 59), if you've never had them before. COVID-19 shot: Get this shot when it's due. Flu shot: Get a flu shot every year. Tetanus shot: Get a tetanus shot every 10 years. Pneumococcal, hepatitis A, and RSV shots: Ask your care team if you need these based on your risk. Shingles shot (for age 50 and up) General health tests Diabetes screening: Starting at age 35, Get screened for diabetes at least every 3 years. If you are younger than age 35, ask your care team if you should be screened for diabetes. Cholesterol test: At age 39, start having a cholesterol test every 5 years, or more often if advised. Bone density scan (DEXA): At age 50, ask your care team if you should have this scan for osteoporosis (brittle bones). Hepatitis C: Get tested at least once in your life. STIs (sexually transmitted infections) Before age 24: Ask your care team if you should be screened for STIs. After age 24: Get screened for STIs if you're at risk. You are at risk for STIs (including HIV) if: You are sexually active with more than one person. You don't use condoms every time. You or a partner was diagnosed with a sexually transmitted infection. If you are at risk for HIV, ask about PrEP medicine to prevent HIV. Get tested for HIV at least once in your life, whether you are at risk for HIV or not. Cancer screening tests Cervical cancer screening: If you have a cervix, begin getting regular cervical cancer screening tests starting at age 21. Breast cancer scan (mammogram): If you've ever had breasts, begin having regular mammograms starting at age 40. This is a scan to check for breast cancer. Colon cancer screening: It is important to start screening for colon cancer at age 45. Have a colonoscopy test every 10 years (or more often if you're at risk) Or, ask your provider about stool tests like a FIT test every year or Cologuard test every 3 years. To learn more about your testing options, visit: . For help making a decision, visit: https://bit.ly/xo81255. Prostate cancer screening test: If you have a prostate, ask your care team if a prostate cancer screening test (PSA) at age 55 is right for you. Lung cancer screening: If you are a current or former smoker ages 50 to 80, ask your care team if ongoing lung cancer screenings are right for you. For informational purposes only. Not to replace the advice of your health care provider. Copyright ?? 2022 [facility]. All rights reserved. Clinically reviewed by the [facility]. [employer] [id number] - REV 09/06. Learning About Depression Screening What is depression screening? Depression screening is a way to see if you have depression symptoms. It may be done by a doctor orcounselor. It's often part of a routine checkup. That's because your mental health is just as important as your physical health. Depression is a mental health condition that affects how you feel, think, and act. You may: Have less energy. Lose interest in your daily activities. Feel sad and grouchy for a long time. Depression is very common. It affects people of all ages. Many things can lead to depression. Some people become depressed after they have a stroke or find out they have a major illness like cancer or heart disease. The of a loved one or a breakup maylead to depression. It can run in families. Most experts believe that a combination of inherited genes and stressful life events can cause it. What happens during screening? You may be asked to fill out a form about your depression symptoms. You and the doctor will discussyour answers. The doctor may ask you more questions to learn more about how you think, act, and feel. What happens after screening? If you have symptoms of depression, your doctor will talk to you about your options. Doctors usually treat depression with medicines or counseling. Often, combining the two works best.Many people don't get help because they think that they'll get over the depression on their own. But people with depression may not get better unless they get treatment. The cause of depression is not well understood. There may be many factors involved. But if you havedepression, it's not your fault. A serious symptom of depression is thinking about or suicide. If you or someone you care about talks about this or about feeling hopeless, get help right away. It's important to know that depression can be treated. Medicine, counseling, and self-care may help. Where can you learn more? Go to https://www.[employer].net/patiented Enter T185 in the search box to learn more about Learning About Depression Screening. Current as of: February 04, 2023 Content Version: 14.1 ?? [employer]. Care instructions adapted under license by your healthcare professional. If you have questions about a medical condition or this instruction, always ask your healthcare professional. [employer] disclaims any warranty or liability for your use of this information. documented in this encounter Progress Notes * Jr Chaparro PA-C - 04/18/2024 7:00 AM CDT Preventive Care Visit [facility] [place] Chaparro PA-C, Family Medicine Apr 18, 2024 Assessment & Plan Routine general medical examination at a health care facility Reviewed personal and family history. Reviewed age appropriate screenings. Reviewed healthy BP and BMI ranges. Counseled on lifestyle modifications for optimal mental and physical health. Discussed age-appropriate health maintanence. Recommended any needed vaccinations. Continue to focus on well bal anced diet and exercise - Lipid panel reflex to direct LDL Fasting; Future - Comprehensive metabolic panel (BMP + Alb, Alk Phos, ALT, AST, Total. Bili, TP); Future - Hemoglobin A1c; Future - Lipid panel reflex to direct LDL Fasting - Comprehensive metabolic panel (BMP + Alb, Alk Phos, ALT, AST, Total. Bili, TP) Bipolar affective disorder, remission status unspecified (H) Depression, major, recurrent, moderate (H) Stable, PHQ still high today. Refilling Rx. Patient to let me know if any worsening of mood. - sertraline (ZOLOFT) 100 MG tablet; Take 1.5 tablets (150 mg) by mouth daily. Benign essential hypertension Controlled. Refills given. - hydrochlorothiazide (MICROZIDE) 12.5 MG capsule; Take 1 capsule (12.5 mg) by mouth daily. Acute dermatitis Has been seeing derm for scalp dermatitis. Requesting refill. - triamcinolone (KENALOG) 0.1 % external lotion; APPLY TO BACK OF SCALP TWICE A DAY X 1-2 WEEKS, THEN NEEDED FOR ITCHING Need for prophylactic vaccination and inoculation against influenza Given. HSV (herpes simplex virus) infection Refilled. - acyclovir (ZOVIRAX) 400 MG tablet; Take 1 tablet (400 mg) by mouth daily. Gastroesophageal reflux disease, unspecified whether esophagitis present Refilled. - RABEprazole (ACIPHEX) 20 MG EC tablet; Take 1 tablet (20 mg) by mouth daily. Elevated glucose - Hemoglobin A1c; Future - Hemoglobin A1c Patient has been advised of split billing requirements and indicates understanding: Yes BMI Estimated body mass index is 33.31 kg/m?? as calculated from the following: Height as of this encounter: 1.638 m (5' 4.5). Weight as of this encounter: 89.4 kg (197 lb 1.6 oz). Weight management plan: Discussed healthy diet and exercise guidelines Counseling Appropriate preventive services were addressed with this patient via screening, questionnaire, or discussion as appropriate for fall prevention, nutrition, physical activity, Tobacco-use cessation, social engagement, weight loss and cognition. Checklist reviewing preventive services available has been given to the patient. Reviewed patient's diet, addressing concerns and/or questions. The patient's PHQ-9 score is consistent with moderate depression. She was provided with informationregarding depression. Rell Beauchamp is a 48 year old, presenting for the following: Physical 04/18/2024 6:45 AM Additional Questions Roomed by Amy Albarado LPN Health Care Directive Patient does not have a Health Care Directive or Living Will: Patient states has Advance Directive and will bring in a copy to clinic. HPI Hypertension Follow-up Do you check your blood pressure regularly outside of the clinic? No Are you following a low salt diet? Yes Are your blood pressures ever more than 140 on the top number (systolic) OR more than 90 on the bottom number (diastolic), for example 140/90? Depression How are you doing with your depression since your last visit? No change Are you having other symptoms that might be associated with depression? No Have you had a significant life event? No Are you feeling anxious or having panic attacks? No Do you have any concerns with your use of alcohol or other drugs? No Social History Tobacco Use Smoking status: Never Passive exposure: Never Smokeless tobacco: Never Tobacco comments: Parents smoked for first 17 years of my life Vaping Use Vaping status: Never Used Substance Use Topics Alcohol use: Yes Comment: 3 times weekly Drug use: No 02/21/2023 4:50 PM 07/10/2023 11:37 PM 04/17/2024 5:54 PM PHQ PHQ-9 Total Score 9 11 10 Q9: Thoughts of better off /self-harm past 2 weeks Not at all Not at all Not at all 02/10/2021 9:31 PM 02/25/2021 10:12 PM 06/17/2021 12:08 PM HUEY-7 SCORE Total Score 7 (mild anxiety) 10 (moderate anxiety) Total Score 7 10 14 04/17/2024 General Health How would you rate your overall physical health? Good Feel stress (tense, anxious, or unable to sleep) To some extent (!) STRESS CONCERN 04/17/2024 Nutrition Three or more servings of calcium each day? (!) NO Diet: Regular (no restrictions) How many servings of fruit and vegetables per day? (!) 0-1 How many sweetened beverages each day? (!) 2 04/17/2024 Exercise Days per week of moderate/strenous exercise 5 days Average minutes spent exercising at this level 20 min 04/17/2024 Social Factors Frequency of gathering with friends or relatives Once a week Worry food won't last until get money to buy more No Food not last or not have enough money for food? No Do you have housing? (Housing is defined as stable permanent housing and does not include staying ouside in a car, in a tent, in an abandoned building, in an overnight mcfp, or couch-surfing.) Yes Are you worried about losing your housing? No Lack of transportation? No Unable to get utilities (heat,electricity)? No 04/17/2024 Fall Risk Fallen 2 or more times in the past year? No Trouble with walking or balance? No 04/17/2024 Dental Dentist two times every year? Yes 04/17/2024 TB Screening Were you born outside of the [place]? No Today's PHQ-9 Score: 04/17/2024 5:54 PM PHQ-9 SCORE PHQ-9 Total Score MyChart 10 (Moderate depression) PHQ-9 Total Score 10 04/17/2024 Substance Use Alcohol more than 3/day or more than 7/wk No Do you use any other substances recreationally? No Social History Tobacco Use Smoking status: Never Passive exposure: Never Smokeless tobacco: Never Tobacco comments: Parents smoked for first 17 years of my life Vaping Use Vaping status: Never Used Substance Use Topics Alcohol use: Yes Comment: 3 times weekly Drug use: No 09/07/2023 LAST FHS-7 RESULTS 1st degree relative breast or ovarian cancer No Any relative bilateral breast cancer No Any male have breast cancer No Any ONE woman have BOTH breast AND ovarian cancer No Any woman with breast cancer before 50yrs No 2 or more relatives with breast AND/OR ovarian cancer No 2 or more relatives with breast AND/OR bowel cancer No Mammogram Screening - Mammogram every 1-2 years updated in Health Maintenance based on mutual decision making 04/17/2024 STI Screening New sexual partner(s) since last STI/HIV test? No History of abnormal Pap smear: Status post hysterectomy with removal of cervix and no history of CIN2 or greater or cervical cancer. Health Maintenance and Surgical History updated. Latest Ref Rng & Units 08/22/2022 4:17 PM 12/01/2020 10:18 AM 09/27/2016 10:33 AM PAP / HPV PAP Negative for Intraepithelial Lesion or Malignancy (NILM) PAP (Historical) NIL HPV 16 DNA Negative Negative Negative Negative HPV 18 DNA Negative Negative Negative Negative Other HR HPV Negative Negative Negative Negative ASCVD Risk Screen Door Maker The 10-year ASCVD risk score (Ross ASHRAF, et al., 2019) is: 2.6% Values used to calculate the score: Age: 48 years Sex: Female Is Non- : No Diabetic: No Tobacco smoker: No Systolic Blood Pressure: 128 mmHg Is BP treated: Yes HDL Cholesterol: 47 mg/dL Total Cholesterol: 238 mg/dL 04/17/2024 Contraception/Family Planning Questions about contraception or family planning No Reviewed and updated as needed this visit by Provider Review of Systems Constitutional, HEENT, cardiovascular, pulmonary, gi and gu systems are negative, except as otherwise noted. Objective Exam BP 128/80 Pulse 74 Temp 97.8 ??F (36.6 ??C) (Oral) Resp 16 Ht 1.638 m (5' 4.5) Wt 89.4 kg (197 lb 1.6 oz) LMP 11/19/2023 SpO2 100% BMI 33.31 kg/m?? Estimated body mass index is 33.31 kg/m?? as calculated from the following: Height as of this encounter: 1.638 m (5' 4.5). Weight as of this encounter: 89.4 kg (197 lb 1.6 oz). Physical Exam GENERAL: alert and no distress EYES: Eyes grossly normal to inspection, PERRL and conjunctivae and sclerae normal HENT: ear canals and TM's normal, nose and mouth without ulcers or lesions NECK: no adenopathy, no asymmetry, masses, or scars RESP: lungs clear to auscultation - no rales, rhonchi or wheezes CV: regular rate and rhythm, normal S1 S2, no S3 or S4, no murmur, click or rub, no peripheral edema ABDOMEN: soft, nontender, no hepatosplenomegaly, no masses and bowel sounds normal MS: no gross musculoskeletal defects noted, no edema SKIN: no suspicious lesions or rashes NEURO: Normal strength and tone, mentation intact and speech normal PSYCH: mentation appears normal, affect normal/bright Signed Electronically by: Jr Chaparro PA-C Answers submitted by the patient for this visit: Patient Health Questionnaire (Submitted on 04/17/2024) If you checked off any problems, how difficult have these problems made it for you to do your work,take care of things at home, or get along with other people?: Somewhat difficult PHQ9 TOTAL SCORE: 10 documented in this encounter Plan of Treatment Not on file documented as of this encounter Procedures Procedure Name Priority Date/Time Associated Diagnosis Comments LIPID REFLEX TO DIRECT LDL PANEL Routine 04/18/2024 7:24 AM CDT Routine general medical examination at a health care facility HEMOGLOBIN A1C Routine 04/18/2024 7:24 AM CDT Elevated glucose COMPREHENSIVE METABOLIC PANEL Routine 04/18/2024 7:24 AM CDT Routine general medical examination at a [facility] care facility documented in this encounter Results * (ABNORMAL) Hemoglobin A1c (04/18/2024 7:24 AM CDT) Hemoglobin A1C 6.0(H) 0.0 - 5.6 % 04/18/2024 7:29 AM CDT LABORATORY Comment: Normal <5.7% Prediabetes 5.7-6.4% ?? Diabetes 6.5% or higher Note: Adopted from ADA consensus guidelines. Blood BLOOD SPECIMEN / Unknown Venipuncture / Unknown 04/18/2024 7:24 AM CDT 04/18/2024 7:24 AM CDT us Jr Chaparro PA-C LAB - BLOOD ORDERABLES Final Result LABORATORY [facility] [place] [facility] [address] [facility] (no room number, 1st floor of clinic) [place] [address], [facility] * (ABNORMAL) Comprehensive metabolic panel (BMP [...] 7:24 AM CDT 04/18/2024 7:24 AM CDT us Jr Chaparro PA-C LAB - BLOOD ORDERABLES Final Result [facility] [address] [facility], [address] [place] [address] * (ABNORMAL) Lipid panel reflex to direct [...] - BLOOD ORDERABLES Final Result [facility] [address], [address] [place] [address], [facility] documented in this encounter Visit Diagnoses Diagnosis Routine general medical examination at a health care facility- Primary Bipolar affective disorder, remission status unspecified (H) Depression, major, recurrent, moderate (H) Major depressive disorder, recurrent episode, moderate Benign essential hypertension Essential hypertension, benign Acute dermatitis Contact dermatitis and other eczema, due to unspecified cause Need for prophylactic vaccination and inoculation against influenza HSV (herpes simplex virus) infection Herpes simplex without mention of complication Gastroesophageal reflux disease, unspecified whether esophagitis present Elevated glucose Other abnormal glucose documented in this encounter Additional Health Concerns Assessment Noted Time PHQ-9 Depression Total Score: 10 024 5:54 PM CDT documented as of this encounter Care Teams Certified Pediatric Nurse Practitioner Relationship Specialty Start [place] [address] [place] [address] PCP - General Family Practice 03/21/11 Sissy Herrera RPH [address] [place] [address] Pharmacist Pharmacist 07/22/20 Jr Chaparro PA-C [address] [place] [address] Assigned PCP 07/08/23 documented as of this encounter
--- OUTSIDE RECORDS SUMMARY | 2024-06-20 18:12 | XMS_ITS | Encounter Summary ---
Author Organization [facility] Address [address] [place] [address]. [place] [address] Care Team Providers Care [employer]ending [employer] Supervisor Name Role Phone Maureen Centeno MD Primary Care Provider Sissy Herrera [facility] Unavailable [phone] Alejandro Mccarty MD Unavailable Jr Chaparro PA-C Unavailable [phone] Unavailable + [phone] Encounter Details Date Type Department Care Team (Late st Contact Info) Description 05/26/2023 [facility] Clinical Research [address] [place] [id number] Cary Garner Social History Tobacco Use Types Packs/Day Years Used Date Smoking Tobacco: Never Smokeless Tobacco: Never Comments:Parents smoked for first 17 years of my life Alcohol Use Standard Drinks/Week Comments Yes 0 (1 standard drink = 0.6 oz pur e alcohol) 3 times weekly Social Connection and Isolat ion Panel [NHANES] Answer Date Recorded In a typical week, how many times do you talk on the phone with family, friends, or neighbors? More than three times a week 02/21/2023 How often do you get togethe r with friends or relatives? Once a week 02/21/2023 How often do you attend chur ch or holiness services? 1 to 4 times per year 02/21/2023 Do you belong to any clubs o r organizations such as yazdanism groups, unions, fraternal or athletic groups, or school groups? Yes 02/21/2023 Attends Club or Organization Meetings Not on sammie e 02/21/2023 Are you , , di vorced, , never , or living with a partner? 02/21/2023 AUDIT-C Answer Date Recorded Q1: How often [...] PHQ-2 Answer Date Recorded PHQ-2 Score 2 02/21/2023 [facility]ational Stress Questionnaire Answer Date Recorded Do you feel stress - tense, restless, nervous, or anxious, or unable to sleep at night because your mind is troubled all the time - these days? Rather much 02/21/2023 Exercise Vital Sign Answer Date Recorde d On average, how many days pe r week do you engage in moderate to strenuous exercise (like a brisk walk)? 5 days 02/21/2023 On average, how many minutes do you engage in exercise at this level? 20 min 02/21/2023 Adolescent Education Answer Date Record ed Getting School Help Needed Not on file 05/11 Food Insecurity Answer Date Recorded Within the past 12 months, d id you worry that your food would run out before you got money to buy more? No 05/24/2023 Within the past 12 months, d id the food you bought just not last and you didn? t have money to get more? No 05/24/2023 Housing Stability Answer Date Recorded Do you have housing? (Timbo g is defined as stable permanent housing and does not include staying ouside in a car, in a tent, in an abandoned building, in an overnight fdc, or couch-surfing.) Yes 05/24/2023 Are you worried about losing your housing? No 05/24/2023 Financial Resource Strain Answer Date R ecorded Within the past 12 months, h ave you or your family members you live with been unable to get utilities (heat, electricity) when it was really needed? No 05/24/2023 Transportation Needs Answer Date Record ed Within the past 12 months, h as lack of transportation kept you from medical appointments, getting your medicines, non-medical meetings or appointments, work, or from getting things that you need? No 05/24/2023 Comments No Sex and Gender Information Value Date Recorded Sex Assigned at Female 10/15/2018 5:37 PM IMPORT CLERK Legal Sex Female 3:33 AM IMPORT CLERK Gender Identity Female 10/15/2018 5:37 PM IMPORT CLERK Sexual Orientation Straight 10/15/2018 5: 37 PM IMPORT CLERK documented as of this encounter Plan of Treatment Not on file documented as of this encounter Visit Diagnoses Not on filedocumented in this encounter Additional Health Concerns Assessment Noted Time PHQ-9 Depression Total Score: 9 02/22/20 23 4:50 PM CDT documented as of this encounter Care Teams [employer] Supervisor Relationship Specialty [place] [address] [address] [place] [id number] PCP - General Family Practice 03/21/11 Sissy Herrera [facility] [address] [place] [address] Pharmacist Pharmacist 07/22/20 [place] [address] [place] [address] Assigned PCP 01/08/22 07/07/23 Jr Chaparro PA-C [address] [place] [id number] Assigned PCP 07/08/23 Nirmala Castrejon, RD [address] [place] [address], [place] [address] Registered Dietitian Dietitian, Registered 04/23/24 documented as of this encounter
--- OUTSIDE RECORDS SUMMARY | 2024-06-20 18:12 | XMS_ITS | Encounter Summary ---
Author Organization [facility] Address [address] [place] [address] Care Team Providers Care Search Strategist Name Role Phone Maureen Centeno MD Primary Care Provider Sissy Herrera [facility] Unavailable [phone] Jr Chaparro PA-C Unavailable [phone] Unavailable [phone] Reason for Referral * Medication Prior Authorization - Closed Specialty Diagnoses / Procedures Referred By Contac t Referred To Contact Diagnoses Class 1 obesity due to excess calories without serious comorbidity with body mass index (BMI) of 33.0 to 33.9 in adult Jr Chaparro PA-C [address] [place] [address] Phone: tel: fax: Referral ID Status Reason Start Date Expiration Date Visits Re quested Visits Authorized [id number] Closed 1 1 * Medication Prior Authorization - Authorized Specialty Diagnoses / Procedures Referred By Contac t Referred To Contact Diagnoses Class 1 obesity due to excess calories without serious comorbidity with body mass index (BMI) of 33.0 to 33.9 in adult Jr Chaparro PA-C [address] [place] [address] Phone: tel: fax: Referral ID Status Reason Start Date Expiration Date V isits Requested Visits Authorized [id number] Authorized 04/23/2024 12/19/2024 1 1 Reason for Visit * Reason Comments Depression Anxiety Lipids Hypertension Encounter Details Date Type Department Care Team (Late st Contact Info) Description 05/23/2024 1:00 PM CDT Office Visit [facility] [address] [place] [phone] Jr Chaparro PA-C [address] [place], [place] [id number] Class 1 obesity due to excess calories without serious comorbidity with body mass index (BMI) of 33.0 to 33.9 in adult (Primary Dx); Mixed hyperlipidemia; Prediabetes; Benign essential hypertension Social History Tobacco Use Types Packs/Day Years [...] re latives? Once a week 04/17/2024 Attends Holiness Services Not on file 04/17 Active Member [...] when you are drinking? 1 or 2 3 Q3: How often do you have si x or more drinks on one occasion? Monthly 02/21/2023 PHQ-2 Answer Date Recorded PHQ-2 Score 2 04/18/2024 [facility] - Occupational [...] Sex Assigned at Female 10/15/2018 5:37 PM GEOMETRICIAN Legal Sex Female 3:33 AM GEOMETRICIAN Gender Identity Female 10/15/2018 5:37 PM GEOMETRICIAN Sexual Orientation Straight 10/15/2018 5: 37 PM GEOMETRICIAN documented as of this encounter Last Filed [...] Mass Index 33.63 05/23/2024 12:49 PM CDT documented in this encounter Progress Notes * Jr Chaparro PA-C - 05/23/2024 1:00 PM CDT Images from the original note were not included. Assessment & Plan Class 1 obesity due to excess calories without serious comorbidity with body mass index (BMI) of 33.0 to 33.9 in adult It looks as if her insurance may cover GLP-1 meds. I think she is a good candidate for one. Making diet and exercise changes currently. Discussed mechanism of action of medication, proper dosing, potential side effects and appropriate follow up (2-3 months after starting). - Semaglutide-Weight Management (WEGOVY) 0.25 MG/0.5ML pen; Inject 0.25 mg subcutaneously once a week. - Semaglutide-Weight Management (WEGOVY) 0.5 MG/0.5ML pen; Inject 0.5 mg subcutaneously once a week. - ondansetron (ZOFRAN) 4 MG tablet; Take 1 tablet (4 mg) by mouth every 8 hours as needed for nausea. Mixed hyperlipidemia Prediabetes Benign essential hypertension All contributing co morbidities from obesity. They should improve with use of GLP-s. Can monitor labs in a few months for progress. BP well controlled. The longitudinal plan of care for the diagnosis(es)/condition(s) as documented were addressed during this visit. Due to the added complexity in care, I will continue to support Quynh in the subsequent management and with ongoing continuity of care. Rell Beauchamp is a 48 year old, presenting for the following health issues: Depression, Anxiety, Lipids, and Hypertension 05/23/2024 12:40 PM Additional Questions Roomed by Rebecca Juan VF Would like to discuss weight loss medication to help treat her prediabetes and help get levels down. History of Present Illness Mental Health Follow-up: Patient presents to follow-up on Depression & Anxiety.Patient's depression since last visit has been: Better The patient is not having other symptoms associated with depression. Patient's anxiety since last visit has been: Better The patient is not having other symptoms associated with anxiety. Any significant life events: job concerns Patient is not feeling anxious or having panic attacks. Patient has no concerns about alcohol or drug use. Hyperlipidemia: She presents for follow up of hyperlipidemia. She is taking medication to lower cholesterol. She is not having myalgia or other side effects to statin medications. Hypertension: She presents for follow up of hypertension. She does not check blood pressure regularly outside of the clinic. Outpatient blood pressures have not been over 140/90. She follows a low salt diet. She eats 0-1 servings of fruits and vegetables daily.She consumes 2 sweetened beverage(s) daily.Sheexercises with enough effort to increase her heart rate 20 to 29 minutes per day. She exercises with enough effort to increase her heart rate 5 days per week. She is missing 2 dose(s) of medications per week. She is not taking prescribed medications regularly due to remembering to take. Discussion regarding weight loss. Recent nutrition consult that went well- feels that she got a lot of good advice for changes she can make. Wondering about medication options. Cholesterol mildly elevated over past couple years. A1C has been elevated. Cholesterol <200 mg/dL 233 High 238 High 230 High 207 High 212 High 234 High CM Triglycerides <150 mg/dL 242 High 194 High 140 237 High 128 371 High CM Direct Measure HDL >=50 mg/dL 47 Low 47 Low 47 Low 44 Low 51 41 Low R LDL Cholesterol Calculated <=100 mg/dL 138 High 152 High 155 High 116 High 135 High 119 High R, CM Non HDL Cholesterol <130 mg/dL 186 High 191 High 183 High 163 High 161 High 193 High CM Patient Fasting > 8hrs? Yes The 10-year ASCVD risk score (Ross ASHRAF, et al., 2019) is: 2.4% Values used to calculate the score: Age: 48 years Sex: Female Is Non- : No Diabetic: No Tobacco smoker: No Systolic Blood Pressure: 125 mmHg Is BP treated: Yes HDL Cholesterol: 47 mg/dL Total Cholesterol: 233 mg/dL Hemoglobin A1C 0.0 - 5.6 % 6.0 High 5.9 High CM 5.8 High R, CM Comment: Normal <5.7% Review of Systems Constitutional, HEENT, cardiovascular, pulmonary, gi and gu systems are negative, except as otherwise noted. Objective BP 125/87 (BP Location: Right arm, Patient Position: Sitting, Cuff Size: Adult Large) Pulse 93 Temp 98.7 ??F (37.1 ??C) (Oral) Resp 27 Ht 1.638 m (5' 4.5) Wt 90.3 kg (199 lb) LMP 11/19/2023 SpO2 99% BMI 33.63 kg/m?? Body mass index is 33.63 kg/m??. Physical Exam GENERAL: alert and no distress NECK: no adenopathy, no asymmetry, masses, or scars CV: regular rate and rhythm, normal S1 S2, no S3 or S4, no murmur, click or rub, no peripheral edema MS: no gross musculoskeletal defects noted, no edema PSYCH: mentation appears normal, affect normal/bright Signed Electronically by: Jr Chaparro PA-C documented in this encounter Plan of Treatment Not on file documented as of this encounter Visit Diagnoses Diagnosis Class 1 obesity due to excess calories without serious comorbidity with body mass index (BMI) of 33.0 to 33.9 in adult- Primary Mixed hyperlipidemia Prediabetes Other abnormal glucose Benign essential hypertension Essential hypertension, benign documented in this encounter Additional Health Concerns Assessment Noted Time PHQ-9 Depression Total Score: 10 024 5:54 PM CDT documented as of this encounter Care Teams Search Strategist Relationship Specialty [place] [address] [place] [address] PCP - General Family Practice 03/21/11 Sissy Herrera RPH [address] [place] [address] Pharmacist Pharmacist 07/22/20 Jr Chaparro PA-C [address] [place] [address] Assigned PCP 07/08/23 Nirmala Castrejon, RD [address] [place] [address] [address] [place] [address] Registered Dietitian Dietitian, Registered 04/23/24 documented as of this encounter
--- OUTSIDE RECORDS SUMMARY | 2024-06-20 18:12 | XMS_ITS | Encounter Summary ---
Author Organization [facility] Address [address] [place] [address] Care Team Providers Care Sprinkling System Installer Name Role Phone Maureen Centeno MD Primary Care Provider Maureen Centeno MD Unavailable [phone] Sissy Herrera [facility] Unavailable Risa Mcdowell MD Unavailable [phone] [facility] Unavailable + Maureen Centeno MD Unavailable [phone] Alejandro Mccarty MD Unavailable Jr Chaparro PA-C Unavailable Nirmala Castrejon RD Unavailable [phone] Encounter Details Date Type Department Care Team (Late st Contact Info) Description 12/01/2020 [facility] [address] [address] Risa Mcdowell MD [address], [facility] [address] [place] [address] Social History Tobacco Use Types Packs/Day Years Used Date Smoking Tobacco: Never Smokeless Tobacco: Never Alcohol Use Standard Drinks/Week Comments Yes 0 (1 standard drink = 0.6 oz pur e alcohol) 3 times weekly PHQ-2 Answer Date Recorded PHQ-2 Score 2 11/05/2020 Comments No Sex and Gender Information Value Date Recorded Sex Assigned at Female 10/15/2018 5:37 PM MANNEQUIN MAKER Legal Sex Female 3:33 AM MANNEQUIN MAKER Gender Identity Female 10/15/2018 5:37 PM MANNEQUIN MAKER Sexual Orientation Straight 10/15/2018 5: 37 PM MANNEQUIN MAKER COVID-19 Exposure Response Date Recorded In the last month, have you been in contact with someone who was confirmed or suspected to have Coronavirus / COVID-19? No / Unsure 12/01/2020 9:26 AM CDT documented as of this encounter Plan of Treatment Not on file documented as of this encounter Visit Diagnoses Not on filedocumented in this encounter Additional Health Concerns Assessment Noted Time PHQ-9 Depression Total Score: 9 09/05/19 21 7:05 AM MANNEQUIN MAKER documented as of this encounter Care Teams Sprinkling System Installer Relationship Specialty [place] [address] [place] [address] PCP - General Family Practice 03/21/11 [place] [address] [place] [address] Assigned PCP 02/09/20 01/30/21 Sissy Herrera RPH [address] [place] [address] Pharmacist Pharmacist 07/22/20 Risa Mcdowell MD [address], [address] [address] Assigned OBGYN Provider 12/13/2006/03 Brandi Gutierrez MD [facility] [address] [place] [address] Assigned PCP 01/31/21 06/19/21 [place] [address] [address] [id number] Assigned PCP 06/20/21 01/07/22 [place] [address] [address] [id number] Assigned PCP 01/08/22 07/07/23 Jr Chaparro PA-C [address] [address] [id number] Assigned PCP 07/08/23 Nirmala Castrejon, RD [address] [place] [address] [address] [place], [place] [address] Registered Dietitian Dietitian, Registered 04/23/24 documented as of this encounter
--- OUTSIDE RECORDS SUMMARY | 2024-06-20 18:12 | XMS_ITS | Encounter Summary ---
Author Organization [facility] Address [address] [place] [address]. [place] [address] Care Team Providers Care Design Inserter Name Role Phone Maureen Centeno MD Primary Care Provider Sissy Herrera [facility] Unavailable [phone] Risa Mcdowell MD Unavailable [phone] Alejandro Mccarty MD Unavailable Jr Chaparro PA-C Unavailable [phone] Unavailable [phone] Encounter Details Date Type Department Care Team (Late st Contact Info) Description 03/29/2022 [facility] Medical Advice [facility] [address] [place] [address] Jr Chaparro PA-C [address] [place] [address] Social History Tobacco Use Types Packs/Day Years Used Date Smoking Tobacco: Never Smokeless Tobacco: Never Comments:Parents smoked for first 17 years of my life Alcohol Use Standard Drinks/Week Comments Yes 0 (1 standard drink = 0.6 oz pur e alcohol) 3 times weekly PHQ-2 Answer Date Recorded PHQ-2 Score 2 03/29/2022 Comments No Sex and Gender Information Value Date Recorded Sex Assigned at Female 10/15/2018 5:37 PM PAPETERIE TABLE ASSEMBLER Legal Sex Female 3:33 AM PAPETERIE TABLE ASSEMBLER Gender Identity Female 10/15/2018 5:37 PM PAPETERIE TABLE ASSEMBLER Sexual Orientation Straight 10/15/2018 5: 37 PM PAPETERIE TABLE ASSEMBLER COVID-19 Exposure Response Date Recorded In the last 10 days, have yo u been in contact with someone who was confirmed or suspected to have Coronavirus/COVID-19? No / Unsure 03/29/2022 7:49 AM CDT documented as of this encounter Plan of Treatment Not on file documented as of this encounter Visit Diagnoses Not on filedocumented in this encounter Additional Health Concerns Assessment Noted Time PHQ-9 Depression Total Score: 9 03/29/20 22 7:51 AM CDT documented as of this encounter Care Teams Design Inserter Relationship Specialty [place] [address] [place] [id number] PCP - General Family Practice 03/21/11 Sissy Herrera RPH [address] [place], [place] [id number] Pharmacist Pharmacist 07/22/20 Risa Mcdowell MD [address] [address] Assigned OBGYN Provider 12/13/2006/03 [place] [address] [place] [id number] Assigned PCP 01/08/22 07/07/23 Jr Chaparro PA-C [address] [place] [id number] Assigned PCP 07/08/23 Nirmala Castrejon, LISA [address] [place] [id number] Registered Dietitian Dietitian, Registered 04/23/24 documented as of this encounter
--- OUTSIDE RECORDS SUMMARY | 2024-06-20 18:12 | XMS_ITS | Encounter Summary ---
Author Organization [facility] Address [address] [place] [address]. [place] [address] Care Team Providers Care Shipping And Receiving Assistant Name Role Phone Maureen Centeno MD Primary Care Provider Sissy Herrera [facility] Unavailable [phone] Alejandro Mccarty MD Unavailable Jr ChaparroC Unavailable [phone] Unavailable [phone] Encounter Details Date Type Department Care Team (Late st Contact Info) Description 03/23/2023 [facility] Medical Advice [facility] [address] [place] [address] Jr Chaparro PA-C [address] [place] [address] Social History Tobacco Use Types [...] 02/21/2023 How often do you attend chur or evangelical services? 1 to 4 times per year 02/21/2023 Do you belong to any clubs o r organizations such as gnosticism groups, unions, fraternal or athletic groups, or [...] more drinks on one occasion? Monthly 02/21/2023 Overall Financial Resource Strain (CARDIA) Answe r Date Recorded How hard is it for you to pa y for the very basics like food, housing, medical care, and heating? Somewhat hard 02/21/2023 PHQ-2 Answer Date Recorded PHQ-2 Score 2 02/21/2023 [facility] - Occupational Stress Questionnaire Answer Date [...] exercise at this level? 20 min 02/21/2023 Hunger Vital Sign Answer Date Recorded Within the past 12 months, y ou worried that your food would run out before you got the money to buy more. Never true 02/22/20 23 Within the past 12 months, t he food you bought just didn't last and you didn't have money to get more. Never true 02/21/2023 PRAPARE - Transportation Answer Date Re corded In the past 12 months, has l ack of transportation kept you from medical appointments or from getting medications? No 02/11 In the past 12 months, has l ack of transportation kept you from meetings, work, or from getting things needed for daily living? No 02/21/2023 Housing Stability Vital Sign Answer Alex e Recorded In the last 12 months, was t here a time when you were not able to pay the mortgage or rent on time? No 02/21/2023 In the last 12 months, how many places have you lived? 1 02/21/2023 In the last 12 months, was t here a time when you did not have a steady place to sleep or slept in a care home (including now)? No 02/21/2023 Comments No Sex and Gender Information Value Date Recorded Sex Assigned at Female 10/15/2018 5:37 PM TREER Legal Sex Female 3:33 AM TREER Gender Identity Female 10/15/2018 5:37 PM TREER Sexual Orientation Straight 10/15/2018 5: 37 PM TREER COVID-19 Exposure Response Date Recorded In the last 10 days, have yo u been in contact with someone who was confirmed or suspected to have Coronavirus/COVID-19? No / Unsure 02/21/2023 4:43 PM CDT documented as of this encounter Plan of Treatment Not on file documented as of this encounter Visit Diagnoses Not on filedocumented in this encounter Additional Health Concerns Assessment Noted Time PHQ-9 Depression Total Score: 9 02/22/20 23 4:50 PM CDT documented as of this encounter Care Teams Shipping And Receiving Assistant Relationship Specialty [place] [address] [place] [address] PCP - General Family Practice 03/21/11 Sissy Herrera RPH [address] [place] [address] Pharmacist Pharmacist 07/22/20 [place] [address] [place] [address] Assigned PCP 01/08/22 07/07/23 Jr Chaparro [place] [address] [place] [address] Assigned PCP 07/08/23 Nirmala Castrejon, RD [address] [place] [address] [address] [place], [place] [address] Registered Dietitian Dietitian, Registered 04/23/24 documented as of this encounter
--- OUTSIDE RECORDS SUMMARY | 2024-06-20 18:12 | XMS_ITS | Encounter Summary ---
Author Organization [facility] Address [address] [place] [address] Care Team Providers Care Senior Medical Writer Name Role Phone Maureen Centeno MD Primary Care Provider Sissy Herrera [facility] Unavailable [phone] Jr Chaparro PA-C Unavailable [phone] Unavailable [phone] Encounter Details Date Type Department Care Team (Latest Contact Info) Description 05/23/2024 Travel Social History Tobacco Use Types Packs/Day [...] re latives? Once a week 04/17/2024 Attends [employer] Services Not on file 04/17 Active Member [...] Answer Date Recorded PHQ-2 Score 2 04/[facility]/20[facility] - Occupational Stress Questionnaire Answer [...] in an abandoned building, in an overnight residential, or couch-surfing.) Yes 04/17/2024 Are you worried [...] Sex Assigned at Female 10/15/2018 5:37 PM CHANNEL WORKER Legal Sex Female 3:33 AM CHANNEL WORKER Gender Identity Female 10/15/2018 5:37 PM CHANNEL WORKER Sexual Orientation Straight 10/15/2018 5: 37 PM CHANNEL WORKER documented as of this encounter Plan of Treatment Not on file documented as of this encounter Visit Diagnoses Not on filedocumented in this encounter Additional Health Concerns Assessment Noted Time PHQ-9 Depression Total Score: 10 024 5:54 PM CDT documented as of this encounter Care Teams Senior Medical Writer Relationship Specialty [place] [address] [facility] [place] [address] PCP - General Family Practice 03/21/11 Sissy Herrera RPH [address] [place] [address] Pharmacist Pharmacist 07/22/20 Jr Chaparro PA-C [address] [facility] [place] [address] Assigned PCP 07/08/[address] [place] [address] [address] [place] [address] Registered Dietitian Dietitian, Registered 04/23/24 documented as of this encounter
--- OUTSIDE RECORDS SUMMARY | 2024-06-20 18:12 | XMS_ITS | Encounter Summary ---
Author Organization [place] Address [address] [place] [address] Care Team Providers Care Graduation Coach Name Role Phone Maureen Centeno MD Primary Care Provider Sissy Herrera [facility] Unavailable [phone] Risa Mcdowell MD Unavailable [phone] Maureen Centeno MD Unavailable [phone] Alejandro Mccarty MD Unavailable Jr Chaparro PA-C Unavailable [phone] Unavailable [phone] Reason for Visit * Reason Comments Medication Refill Encounter Details Date Type Department Care Team (Late st Contact Info) Description 07/07/[address] [address] Brandi Gutierrez MD PRIMARY ENT [address] [facility] [address] [place] [address] Medication Refill Social History Tobacco Use Types [...] Sex Assigned at Female 10/15/2018 5:37 PM FOOD AND BEVERAGE CONTROLLER Legal Sex Female 3:33 AM FOOD AND BEVERAGE CONTROLLER Gender Identity Female 10/15/2018 5:37 PM FOOD AND BEVERAGE CONTROLLER Sexual Orientation Straight 10/15/2018 5: 37 PM FOOD AND BEVERAGE CONTROLLER COVID-19 Exposure Response Date Recorded In the last month, have you been in contact with someone who was confirmed or suspected to have Coronavirus / COVID-19? No / Unsure 06/21/2021 10:51 AM FOOD AND BEVERAGE CONTROLLER documented as of this encounter Miscellaneous Notes * Telephone Encounter - Glenna Joiner RN - 07/09/2021 2:52 PM CST Medication refilled per [facility] protocol Glenna Joiner RN AND BEVERAGE CONTROLLER documented in this encounter Plan of Treatment Not on file documented as of this encounter Visit Diagnoses Diagnosis HSV (herpes simplex virus) infection Herpes simplex without mention of complication documented in this encounter Additional Health Concerns Assessment Noted Time PHQ-9 Depression Total Score: 10 021 12:09 PM CDT documented as of this encounter Care Teams Graduation Coach Relationship Specialty [place] [address] [place] [address] PCP - General Family Practice 03/21/11 Sissy Herrera RPH [address] [place] [address] Pharmacist Pharmacist 07/22/20 Risa Mcdowell MD [address] [facility], [address] [address] Assigned OBGYN Provider 12/13/2006/03 [place] [address] [place] [id number] Assigned PCP 06/20/21 01/07/22 [place] [address] [place] [id number] Assigned PCP 01/08/22 07/07/23 Jr Chaparro PA-C [address] [place] [id number] Assigned PCP 07/08/23 Nirmala Castrejon, RD [address] [place] [address] [address] [place] [address] Registered Dietitian Dietitian, Registered 04/23/24 documented as of this encounter
--- OUTSIDE RECORDS SUMMARY | 2024-06-20 18:12 | XMS_ITS | Encounter Summary ---
Author Organization [place] Address [address] [place] [address] Care Team Providers Care Work Over Rig Operator Name Role Phone Maureen Centeno MD Primary Care Provider Sissy Herrera [facility] Unavailable [phone] Jr Chaparro PA-C Unavailable [phone] Encounter Details Date Type Department Care Team (Latest Contact Info) Description 04/17/2024 Travel Social History Tobacco Use Types Packs/Day [...] re latives? Once a week 04/17/2024 Attends [employer] Not on file 04/17 Active Member [...] Answer Date Recorded PHQ-2 Score 2 04/18/2024 [facility] - Occupational Stress Questionnaire Answer [...] Sex Assigned at Female 10/15/2018 5:37 PM BUSINESS UNIT LEADER Legal Sex Female 3:33 AM BUSINESS UNIT LEADER Gender Identity Female 10/15/2018 5:37 PM BUSINESS UNIT LEADER Sexual Orientation Straight 10/15/2018 5: 37 PM BUSINESS UNIT LEADER documented as of this encounter Plan of Treatment Not on file documented as of this encounter Visit Diagnoses Not on filedocumented in this encounter Additional Health Concerns Assessment Noted Time PHQ-9 Depression Total Score: 10 024 5:54 PM CDT documented as of this encounter Care Teams Work Over Rig Operator Relationship Specialty [place] [address] [place] [address] PCP - General Family Practice 03/21/11 Sissy Herrera RPH [address] [place] [address] Pharmacist Pharmacist 07/22/20 Jr Chaparro PA-C [address] [place] [address] Assigned PCP 07/08/23 documented as of this encounter
--- OUTSIDE RECORDS SUMMARY | 2024-06-20 18:12 | XMS_ITS | Encounter Summary ---
Author Organization [place] Address [address] [place] [address] Care Team Providers Care Underwater Hunter Name Role Phone Maureen Centeno MD Primary Care Provider Kayy Allen [facility] Unavailable Unavailable Maureen Centeno MD Unavailable [phone] Sissy Herrera [facility] Unavailable [phone] Risa Mcdowell MD Unavailable [phone] EmilyBrandi Stevens MD Unavailable + Maureen Centeno MD Unavailable [phone] Alejandro Mccarty MD Unavailable Jr Chaparro PA-C Unavailable [phone] Unavailable [phone] Encounter Details Date Type Department Care Team (Late st Contact Info) Description 04/23/2020 [facility] [address] [address] Marisa Elena Social History Tobacco Use Types Packs/Day Years Used Date Smoking Tobacco: Never Smokeless Tobacco: Never Alcohol Use Standard Drinks/Week Comments Yes 0 (1 standard drink = 0.6 oz pur e alcohol) 3 times weekly PHQ-2 Answer Date Recorded PHQ-2 Score 0 01/30/2020 Comments No Sex and Gender Information Value Date Recorded Sex Assigned at Female 10/15/2018 5:37 PM POLYSOMNOGRAPHER Legal Sex Female 3:33 AM POLYSOMNOGRAPHER Gender Identity Female 10/15/2018 5:37 PM POLYSOMNOGRAPHER Sexual Orientation Straight 10/15/2018 5: 37 PM POLYSOMNOGRAPHER COVID-19 Exposure Response Date Recorded In the last month, have you been in contact with someone who was confirmed or suspected to have Coronavirus / COVID-19? No / Unsure 04/15/2020 2:49 PM CDT documented as of this encounter Plan of Treatment Not on file documented as of this encounter Visit Diagnoses Not on filedocumented in this encounter Additional Health Concerns Assessment Noted Time PHQ-9 Depression Total Score: 14 020 7:05 AM CDT documented as of this encounter Care Teams Underwater Hunter Relationship Specialty [place] [address] [place] [address] PCP - General Family Practice 03/21/11 Kayy Allen [facility] [address] [place] [address] Pharmacist Pharmacist 02/28/19 07/21/20 [place] [address] [place] [address] Assigned PCP 02/09/20 01/30/21 Sissy Herrera [facility] [address] [place] [address] Pharmacist Pharmacist 07/22/20 Risa Mcdowell MD [address] [address] Assigned OBGYN Provider 12/13/2006/03 Brandi Gutierrez MD PRIMARY ENT [address] [place], [place] [address] Assigned PCP 01/31/21 06/19/21 [place] [address] [address] [place], [place] [address] Assigned PCP 06/20/21 01/07/22 [place] [address] [address] [place], [place] [address]85[address] Assigned PCP 01/08/22 07/07/23 Jr Chaparro PA-C [address] [place], [place] [address] Assigned PCP 07/08/23 Nirmala Castrejon, RD [address] [place] [address] [address] [place] [address] Registered Dietitian Dietitian, Registered 04/23/24 documented as of this encounter
--- OUTSIDE RECORDS SUMMARY | 2024-06-20 18:12 | XMS_ITS | Encounter Summary ---
Author Organization [place] Address [address] [place] [address] Care Team Providers Care Art Critic Name Role Phone Maureen Centeno MD Primary Care Provider Kayy Allen [facility] Unavailable Unavailable Maureen Centeno MD Unavailable [phone] Maureen Centeno MD Unavailable [phone] Sissy Herrera [facility] Unavailable [phone] Risa Mcdowell MD Unavailable [phone] Brandi Gutierrez MD Unavailable + Maureen Centeno MD Unavailable [phone] Alejandro Mccarty MD Unavailable Jr Chaparro PA-C Unavailable [phone] Unavailable [phone] Encounter Details Date Type Department Care Team (Late st Contact Info) Description 01/16/2020 [facility] [place] [facility] [address] [address] Marisa Elena Social History Tobacco Use Types Packs/Day Years Used Date Smoking Tobacco: Never Smokeless Tobacco: Never Alcohol Use Standard Drinks/Week Comments Yes 0 (1 standard drink = 0.6 oz pur e alcohol) 3 times weekly PHQ-2 Answer Date Recorded PHQ-2 Score 4 01/08/2020 Comments No Sex and Gender Information Value Date Recorded Sex Assigned at Female 10/15/2018 5:37 PM AGRICULTURAL EXTENSION SPECIALIST Legal Sex Female 3:33 AM AGRICULTURAL EXTENSION SPECIALIST Gender Identity Female 10/15/2018 5:37 PM AGRICULTURAL EXTENSION SPECIALIST Sexual Orientation Straight 10/15/2018 5: 37 PM AGRICULTURAL EXTENSION SPECIALIST documented as of this encounter Plan of Treatment Not on file documented as of this encounter Visit Diagnoses Not on filedocumented in this encounter Additional Health Concerns Assessment Noted Time PHQ-9 Depression Total Score: 12 020 7:04 AM CDT documented as of this encounter Care Teams Art Critic Relationship Specialty [place] [address] [place] [address] PCP - General Family Practice 03/21/11 Kayy Allen [facility] [address] [place] [address] Pharmacist Pharmacist 02/28/19 07/21/20 [place] [address] [place] [address] Assigned PCP 05/05/19 02/08/20 [place] [address] [place] [address] Assigned PCP 02/09/20 01/30/21 Sissy Herrera [facility] [address] [place] [address] Pharmacist Pharmacist 07/22/20 Risa Mcdowell MD [address] [place] [place] [address] Assigned OBGYN Provider 12/13/2006/03 Brandi Gutierrez MD PRIMARY [place]NT [address] [place], [place] [id number] Assigned PCP 01/31/21 06/19/21 [place] [address] [place] [place], [place] [address] Assigned PCP 06/20/21 01/07/22 [place] [address] [address] [place] [place], [place] 1790168 Assigned PCP 01/08/22 07/07/23 Jr Chaparro PA-C [address] [place] [place], [place] 22837[address] Assigned PCP 07/08/23 Nirmlaa Castrejon, RD [address] [place] [address] 84 [place], [place] [address]85 Registered Dietitian Dietitian, Registered 04/23/24 documented as of this encounter
--- OUTSIDE RECORDS SUMMARY | 2024-06-20 18:12 | XMS_ITS | Encounter Summary ---
Author Organization [place] Address [address] [place] [address]. [place] [address] Care Team Providers Care Instructional Technology Coach Name Role Phone Maureen Centeno MD Primary Care Provider Sissy Herrera [facility] Unavailable [phone] Alejandro Mccarty MD Unavailable Jr Chaparro PA-C Unavailable [phone] Unavailable [phone] Reason for Visit * Reason Comments Medication Refill Encounter Details Date Type Department Care Team (Late st Contact Info) Description 09/19/2022 Refill [facility] [address] [place] [address] [place] [address] [place] [address] Medication Refill Social History Tobacco Use Types [...] Sex Assigned at Female 10/15/2018 5:37 PM SECONDARY CONNECTOR ARMATURE Legal Sex Female 3:33 AM SECONDARY CONNECTOR ARMATURE Gender Identity Female 10/15/2018 5:37 PM SECONDARY CONNECTOR ARMATURE Sexual Orientation Straight 10/15/2018 5: 37 PM SECONDARY CONNECTOR ARMATURE documented as of this encounter Miscellaneous Notes * Telephone Encounter - Vanessa Stanley RN - 09/20/2022 2:39 PM SECONDARY CONNECTOR ARMATURE Prescription approved per [facility] Refill Protocol. Vanessa Stanley RN NDARY CONNECTOR ARMATURE documented in this encounter Plan of Treatment Not on file documented as of this encounter Visit Diagnoses Diagnosis Gastroesophageal reflux disease, unspecified whether esophagitis present documented in this encounter Additional Health Concerns Assessment Noted Time PHQ-9 Depression Total Score: 8 07/28/20 22 9:57 AM SECONDARY CONNECTOR ARMATURE documented as of this encounter Care Teams Instructional Technology Coach Relationship Specialty [place] [address] [address] [facility] [place] [id number] PCP - General Family Practice 03/21/11 Sissy Herrera RPH [address] [place], [place] [id number] Pharmacist Pharmacist 07/22/20 [place] [address] [place] [address] Assigned PCP 01/08/22 07/07/23 Jr Chaparro PA-C [address] [facility] [place] [address] Assigned PCP 07/08/23 Nirmala Castrejon, LISA NPI: [id number] [place] [address] [address] [place] [address] Registered Dietitian Dietitian, Registered 04/23/24 documented as of this encounter
--- OUTSIDE RECORDS SUMMARY | 2024-06-20 18:13 | XMS_ITS | Encounter Summary ---
Author Organization [place] Address [address] [place] [address] Care Team Providers Care Pile Operator Name Role Phone Maureen Centeno MD Primary Care Provider + aMureen Centeno MD Unavailable + Maureen Centeno MD Unavailable [phone] Kayy Allen RPH Unavailable Unavailable Alessandra Leblanc APRN [facility] Unavailable + Maureen Centeno MD Unavailable + Barb Sanders RP Unavailable Maureen Centeno MD Unavailable + Sissy Herrera RPH Unavailable [phone] Risa Mcdowell MD Unavailable [phone] Brandi Gutierrez MD Unavailable + Maureen Centeno MD Unavailable + Alejandro Mccarty MD Unavailable + Jr Chaparro PA-C Unavailable [phone] Nirmala Castrejon RD Unavailable [phone] Encounter Details Date Type Department Care Team (Late st Contact Info) Description 10/08/2015 [facility] [address], [address] [place] [address] Virgie Wilson, MIXER OPERATOR HELPER HOT METAL Social History Tobacco Use Types Packs/Day Years Used Date Smoking Tobacco: Never Smokeless Tobacco: Never Alcohol Use Standard Drinks/Week Comments Yes 1.7 (1 standard drink = 0.6 oz p ure alcohol) Occasional Comments No Sex and Gender Information Value Date Recorded Sex Assigned at Female 10/15/2018 5:37 PM TARE MAN Legal Sex Female 3:33 AM TARE MAN Gender Identity Female 10/15/2018 5:37 PM TARE MAN Sexual Orientation Straight 10/15/2018 5: 37 PM TARE MAN documented as of this encounter Plan of Treatment Not on file documented as of this encounter Visit Diagnoses Not on filedocumented in this encounter Additional Health Concerns Assessment Noted Time PHQ-9 Depression Total Score: 4 04/28/20 15 7:19 AM CDT documented as of this encounter Care Teams Pile Operator Relationship Specialty [place] [address] [place] [address] PCP - General Family Practice 03/21/11 [place] [address] [place] [address] PCP - Assigned PCP 09/10/17 10/16/18 [place] [address] [place] [id number] Assigned PCP 09/10/17 04/27/19 Kayy Allen [facility] [address] [place] [address] Pharmacist Pharmacist 02/28/19 07/21/20 Alessandra Leblanc APRN [employer] [address] [place] [address] Assigned PCP 04/28/19 05/04/19 [place] [address] [place] [address] Assigned PCP 05/05/19 02/08/20 Barb Sanders, [facility] [address] [place], [place] [address] Pharmacist Pharmacist 06/18/19 09/17/19 [place] [address] [place] [address] Assigned PCP 02/09/20 01/30/[address] [facility] [address] [place], [place] [address] Pharmacist Pharmacist 07/22/20 Risa Mcdowell MD [address] [facility] [address] [place] [address] Assigned OBGYN Provider 12/13/2006/03 Brandi Gutierrez MD PRIMARY [place]NT [address] [place], [place] [address] Assigned PCP 01/31/21 06/19/21 [place] [address] [place] [address] Assigned PCP 06/20/21 01/07/22 [place] [address] [place] [id number] Assigned PCP 01/08/22 07/07/23 Jr Chaparro PA-C [address] [place] [id number] Assigned PCP 07/08/23 Nirmala Castrejon, LISA [address] [place] [address] 84 [place], [place] [address] Registered Dietitian Dietitian, Registered 04/23/24 documented as of this encounter
--- OUTSIDE RECORDS SUMMARY | 2024-06-20 18:13 | XMS_ITS | Encounter Summary ---
Author Organization [place] Address [address] [place] [address] Care Team Providers Care Oil Well Cable Tool Driller Name Role Phone Maureen Centeno MD Primary Care Provider Kayy Allen [facility] Unavailable Unavailable Maureen Centeno MD Unavailable [phone] Barb Sanders [facility] Unavailable [phone] Maureen Centeno MD Unavailable [phone] Sissy Herrera [facility] Unavailable [phone] Risa Mcdowell MD Unavailable [phone] EmilyBrandi Stevens MD Unavailable + Maureen Centeno MD Unavailable [phone] Alejandro Mccarty MD Unavailable Jr Chaparro PA-C Unavailable [phone] Unavailable [phone] Reason for Visit * Reason Onset Date Comments Appointment 06/18/2019 Encounter Details Date Type Department Care Team (Late st Contact Info) Description 06/18/2019 [place] [address] [place] [address] Barb Sanders, [facility] [address] [place] [address] Appointment Social History Tobacco Use Types Packs/Day Years Used Date Smoking Tobacco: Never Smokeless Tobacco: Never Alcohol Use Standard Drinks/Week Comments Yes 0 (1 standard drink = 0.6 oz pur e alcohol) 3 times weekly PHQ-2 Answer Date Recorded PHQ-2 Score 2 04/22/2019 Comments No Sex and Gender Information Value Date Recorded Sex Assigned at Female 10/15/2018 5:37 PM COLUMNIST Legal Sex Female 3:33 AM COLUMNIST Gender Identity Female 10/15/2018 5:37 PM COLUMNIST Sexual Orientation Straight 10/15/2018 5: 37 PM COLUMNIST documented as of this encounter Plan of Treatment Not on file documented as of this encounter Visit Diagnoses Not on filedocumented in this encounter Additional Health Concerns Assessment Noted Time PHQ-9 Depression Total Score: 7 04/23/20 19 7:04 AM CDT documented as of this encounter Care Teams Oil Well Cable Tool Driller Relationship Specialty [place] [address] [place] [address] PCP - General Family Practice 03/21/11 Kayy Allen [facility] [address] [place] [address] Pharmacist Pharmacist 02/28/19 07/21/20 [place] [address] [place] [address] Assigned PCP 05/05/19 02/08/20 Barb Sanders, [facility] [address] [place] [address] Pharmacist Pharmacist 06/18/19 09/17/[address] [place] [address] [place] [address] Assigned PCP 02/09/20 01/30/21 JavierSissy [facility] [address] [place] [address] Pharmacist Pharmacist 07/22/20 Risa Mcdowell MD [address] [facility] [place] [address] Assigned OBGYN Provider 12/13/2006/03 Brandi Gutierrez MD [place] [address] [place] [address] Assigned PCP 01/31/21 06/19/21 [place] [address] [place], [place] 61945[address] Assigned PCP 06/20/21 01/07/22 [place] [address] [place], [place] 397[address] Assigned PCP 01/08/22 07/07/23 Jr Chaparro PA-C [address] [place] [address] Assigned PCP 07/08/23 Nirmala Castrejon, RD [address] [place] [address] [address] [place], [place] [address] Registered Dietitian Dietitian, Registered 04/23/24 documented as of this encounter
--- OUTSIDE RECORDS SUMMARY | 2024-06-20 18:13 | XMS_ITS | Encounter Summary ---
Author Organization [place] Address [address] [place] [address] Care Team Providers Care Grinding Wheel Facer Name Role Phone Maureen Centeno MD Primary Care Provider + Maureen Centeno MD Unavailable + Maureen Centeno MD Unavailable +[phone] Kayy Allen RPH Unavailable Unavailable Alessandra Leblanc APRN [facility] Unavailable + Maureen Centeno MD Unavailable + Barb Sanders RP Unavailable Maureen Centeno MD Unavailable + Sissy Herrera RPH Unavailable +[phone] Risa Mcdowell MD Unavailable +[phone] Brandi Gutierrez MD Unavailable + Maureen Centeno MD Unavailable + Alejandro Mccarty MD Unavailable + Jr Chaparro PA-C Unavailable +1- Nirmala Castrejon RD Unavailable +[phone] Reason for Visit * Reason Onset Date Comments Refill Request 12/18/2015 Zoloft Encounter Details Date Type Department Care Team (Late st Contact Info) Description 12/18/2015 Refill [facility] [id number] [place] [address], [address] [place] [address] [place] [address] [place] [address] Refill Request (Zoloft ) Social History Tobacco Use Types Packs/Day Years Used Date Smoking Tobacco: Never Smokeless Tobacco: Never Alcohol Use Standard Drinks/Week Comments Yes 1.7 (1 standard drink = 0.6 oz p ure alcohol) Occasional Comments No Sex and Gender Information Value Date Recorded Sex Assigned at Female 10/15/2018 5:37 PM AIRPLANE FLIGHT ATTENDANT SUPERVISOR Legal Sex Female 3:33 AM AIRPLANE FLIGHT ATTENDANT SUPERVISOR Gender Identity Female 10/15/2018 5:37 PM AIRPLANE FLIGHT ATTENDANT SUPERVISOR Sexual Orientation Straight 10/15/2018 5: 37 PM AIRPLANE FLIGHT ATTENDANT SUPERVISOR documented as of this encounter Miscellaneous Notes * Telephone Encounter - Brie Solitario RN - 12/18/2015 11:39 AM CDT Routing refill request to provider for review/approval because: Nusrat given x1 and patient did not follow up, please advise. Patient possibly getting prescription through Mental Health. Brie Solitario RN * Telephone Encounter - Sly Garvin - 12/18/2015 9:56 AM CDT Pending Prescriptions: Disp Refills sertraline (ZOLOFT) 50 MG tablet 60 tab*0 Sig: Take 2 tablets (100 mg) by mouth daily Last Written Prescription Date: 09/24/2015 Last Fill Quantity: 60, # refills: 0 Last Office Visit with [facility] primary care provider: 12/09/2014 Last PHQ-9 score on record= PHQ-9 SCORE 04/27/2015 Total Score - Total Score MyChart - Total Score 4 documented in this encounter Plan of Treatment Not on file documented as of this encounter Visit Diagnoses Diagnosis Depression, major, recurrent, moderate (H)- Primary Major depressive disorder, recurrent episode, moderate documented in this encounter Additional Health Concerns Assessment Noted Time PHQ-9 Depression Total Score: 4 04/28/20 15 7:19 AM CDT documented as of this encounter Care Teams Grinding Wheel Facer Relationship Specialty [place] [address] [place] [address] PCP - General Family Practice 03/21/11 [place] [address] [place] [address] PCP - Assigned PCP 09/10/17 10/16/18 [place] [address] [place] [address] Assigned PCP 09/10/17 04/27/19 Kayy Allen [facility] [address] [place] [address] Pharmacist Pharmacist 02/28/19 07/21/20 Alessandra Leblanc APRN [facility] [address] [place] [address] Assigned PCP 04/28/19 05/04/19 [place] [address] [place] [address] Assigned PCP 05/05/19 02/08/20 Barb Sanders [facility] [address] [place] [address] Pharmacist Pharmacist 06/18/19 09/17/19 [place] [address] [place] [address] Assigned PCP 02/09/20 01/30/21 Sissy Herrera [facility] [address] [place] [address] Pharmacist Pharmacist 07/22/20 Risa Mcdowell MD [address], [facility] [address] [place] [address] Assigned OBGYN Provider 12/13/2006/03 Brandi Gutierrez MD [facility] [address] [place], [place] [address] Assigned PCP 01/31/21 06/19/21 [place] [address] [place] 0838[address] Assigned PCP 06/20/21 01/07/22 [place] [address] [place] [address] Assigned PCP 01/08/22 07/07/23 Jr Chaparro PA-C [address] [place], [place] [address] Assigned PCP 07/08/23 Nirmala Castrejon, RD [address] [place] [address] 84 [place] [address] Registered Dietitian Dietitian, Registered 04/23/24 documented as of this encounter
--- OUTSIDE RECORDS SUMMARY | 2024-06-20 18:13 | XMS_ITS | Encounter Summary ---
Author Organization [place] Address [address] [place] [address] Care Team Providers Care It Risk And Assurance Senior Manager Name Role Phone Maureen Centeno MD Primary Care Provider + Maureen Centeno MD Unavailable + Maureen Centeno MD Unavailable +[phone] Kayy Allen RPH Unavailable Unavailable Alessandra Leblanc APRN [facility] Unavailable + Maureen Centeno MD Unavailable + Barb Sanders RP Unavailable Maureen Centeno MD Unavailable + Sissy Herrera RPH Unavailable +[phone] Risa Mcdowell MD Unavailable +[phone] Brandi Gutierrez MD Unavailable + Maureen Centeno MD Unavailable + Alejandro Mccarty MD Unavailable + Jr Chaparro PA-C Unavailable +1- Nirmala Castrejon RD Unavailable [phone] Reason for Visit * Reason Onset Date Comments Cough 03/28/2017 Persistent cough Encounter Details Date Type Department Care Team (Late st Contact Info) Description 03/28/2017 MyC Medical Advice [address], [address] [place] [id number] [place] [address] [place] [address] Cough (Persistent cough) Social History Tobacco Use Types Packs/Day Years Used Date Smoking Tobacco: Never Smokeless Tobacco: Never Alcohol Use Standard Drinks/Week Comments Yes 0 (1 standard drink = 0.6 oz pur e alcohol) Occasional Comments No Sex and Gender Information Value Date Recorded Sex Assigned at Female 10/15/2018 5:37 PM BLUEPRINT BLOCKER Legal Sex Female 3:33 AM BLUEPRINT BLOCKER Gender Identity Female 10/15/2018 5:37 PM BLUEPRINT BLOCKER Sexual Orientation Straight 10/15/2018 5: 37 PM BLUEPRINT BLOCKER documented as of this encounter Miscellaneous Notes * Telephone Encounter - Maureen Centeno MD - 03/28/2017 12:28 PM CDT This was done as an e-visit documented in this encounter Plan of Treatment Not on file documented as of this encounter Visit Diagnoses Not on filedocumented in this encounter Additional Health Concerns Assessment Noted Time PHQ-9 Depression Total Score: 9 09/28/19 17 7:27 AM BLUEPRINT BLOCKER documented as of this encounter Care Teams It Risk And Assurance Senior Manager Relationship Specialty Start [place] [address] [place] [place] [address] PCP - General Family Practice 03/21/11 [place] [address] [place] [address] PCP - Assigned PCP 09/10/17 10/16/18 [place] [address] [place] [address] Assigned PCP 09/10/17 04/27/19 Kayy Allen [facility] [address] [place] [address] Pharmacist Pharmacist 02/28/19 07/21/20 Alessandra Leblanc APRN [facility] [address] [place] [address] Assigned PCP 04/28/19 05/04/19 [place] [address] [place] [address] Assigned PCP 05/05/19 02/08/20 Barb Sanders [facility] [address] [place] [address] Pharmacist Pharmacist 06/18/19 09/17/[address] [place] [address] [place] [address] Assigned PCP 02/09/20 01/30/21 [facility] [address] [place] [address] Pharmacist Pharmacist 07/22/20 Risa Mcdowell MD [address] [facility], [address] [place] [address] Assigned OBGYN Provider 12/13/2006/03 Brandi Gutierrez MD [facility] [address] [place] [address] Assigned PCP 01/31/21 06/19/21 [place] [address] [place] [address] Assigned PCP 06/20/21 01/07/22 [place] [address] [address] [place], [place] [address]26[address] Assigned PCP 01/08/22 07/07/23 Jr Chaparro PA-C [address] [address] [place] [place], [place] 4789[address] Assigned PCP 07/08/23 Nirmala Castrejon, RD [address] [place] [address] 84 [place] [address] Registered Dietitian Dietitian, Registered 04/23/24 documented as of this encounter
--- OUTSIDE RECORDS SUMMARY | 2024-06-20 18:13 | XMS_ITS | Encounter Summary ---
Author Organization [place] Address [address] [place] [address] Care Team Providers Care Agricultural Equipment Mechanic Name Role Phone Maureen Centeno MD Primary Care Provider + Maureen Centeno MD Unavailable + Maureen Centeno MD Unavailable +58 Kayy Allen RPH Unavailable Unavailable Alessandra Leblanc APRN [facility] Unavailable + Maureen Centeno MD Unavailable + Barb Sanders RP Unavailable [phone] Maureen Centeno MD Unavailable + Sissy Herrera RPH Unavailable +[phone] Risa Mcdowell MD Unavailable [phone] Brandi Gutierrez MD Unavailable + Maureen Centeno MD Unavailable + Alejandro Mccarty MD Unavailable + Jr Chaparro PA-C Unavailable +1- Nirmala Castrejon RD Unavailable [phone] Encounter Details Date Type Department Care Team (Late st Contact Info) Description 11/05/2014 MyC Medical Advice [address], [address] [place] [address] Sissy Amato Social History Tobacco Use Types Packs/Day Years Used Date Smoking Tobacco: Never Smokeless Tobacco: Never Alcohol Use Standard Drinks/Week Comments Yes 1.7 (1 standard drink = 0.6 oz p ure alcohol) occasionally Comments No Sex and Gender Information Value Date Recorded Sex Assigned at Female 10/15/2018 5:37 PM PRACTICE BUSINESS ASST Legal Sex Female 3:33 AM PRACTICE BUSINESS ASST Gender Identity Female 10/15/2018 5:37 PM PRACTICE BUSINESS ASST Sexual Orientation Straight 10/15/2018 5: 37 PM PRACTICE BUSINESS ASST documented as of this encounter Plan of Treatment Not on file documented as of this encounter Visit Diagnoses Not on filedocumented in this encounter Care Teams Agricultural Equipment Mechanic Relationship Specialty Start [place] [address] [place] [address] PCP - General Family Practice 03/21/11 [place] [address] [place] [address] PCP - Assigned PCP 09/10/17 10/16/18 [place] [address] [place] [address] Assigned PCP 09/10/17 04/27/19 Kayy Allen RPH [address] [place] [address] Pharmacist Pharmacist 02/28/19 07/21/20 Alessandra Leblanc APRN HOSPITAL TELEVISION RENTAL CLERK [address] [place] [address] Assigned PCP 04/28/19 05/04/19 [place] [address] [place] [address] Assigned PCP 05/05/19 02/08/20 Barb Sanders [facility] [address] [place] [address] Pharmacist Pharmacist 06/18/19 09/17/19 [place] [address] [place] [address] Assigned PCP 02/09/20 01/30/21 Sissy Herrera [facility] [address] [place] [address] Pharmacist Pharmacist 07/22/20 Risa Mcdowell MD [address] [facility], [facility] 100 [place] [address] Assigned OBGYN Provider 12/13/2006/03 Brandi Gutierrez MD [facility] [address] [place] [address] Assigned PCP 01/31/21 06/19/21 [place] [address] [place] [address] Assigned PCP 06/20/21 01/07/22 [place] [address] [place] [address] Assigned PCP 01/08/22 07/07/23 Jr Chaparro PA-C [address] [place] [address] Assigned PCP 07/08/23 Nirmala Castrejon, RD [address] [place] [address] 84 [place] [address] Registered Dietitian Dietitian, Registered 04/23/24 documented as of this encounter
--- OUTSIDE RECORDS SUMMARY | 2024-06-20 18:13 | XMS_ITS | Encounter Summary ---
Author Organization [place] Address [address] [place] [address] Care Team Providers Care Curriculum Development Coordinator Name Role Phone Maureen Centeno MD Primary Care Provider + Maureen Centeno MD Unavailable + Maureen Centeno MD Unavailable +[phone] Kayy Allen RPH Unavailable Unavailable Alessandra Leblanc APRN [facility] Unavailable + Maureen Centeno MD Unavailable + Barb Sanders RP Unavailable Maureen Centeno MD Unavailable + Sissy Herrera RPH Unavailable +[phone] Risa Mcdowell MD Unavailable [phone] Brandi Gutierrez MD Unavailable + Maureen Centeno MD Unavailable + Alejandro Mccarty MD Unavailable + Jr Chaparro PA-C Unavailable +1- Nirmala Castrejon RD Unavailable [phone] Reason for Visit * Reason Onset Date Comments MyChart Communication 12/20/2017 Encounter Details Date Type Department Care Team (Late st Contact Info) Description 12/20/2017 MyC Medical Advice [address], [address] [place] [address] [place] [address] [place] [address] MyChart Communication Social History Tobacco Use Types Packs/Day Years Used Date Smoking Tobacco: Never Smokeless Tobacco: Never Alcohol Use Standard Drinks/Week Comments Yes 0 (1 standard drink = 0.6 oz pur e alcohol) Daily Comments No Sex and Gender Information Value Date Recorded Sex Assigned at Female 10/15/2018 5:37 PM METALWORKER Legal Sex Female 3:33 AM METALWORKER Gender Identity Female 10/15/2018 5:37 PM METALWORKER Sexual Orientation Straight 10/15/2018 5: 37 PM METALWORKER documented as of this encounter Plan of Treatment Not on file documented as of this encounter Visit Diagnoses Not on filedocumented in this encounter Additional Health Concerns Assessment Noted Time PHQ-9 Depression Total Score: 9 10/26/19 18 8:00 AM CDT documented as of this encounter Care Teams Curriculum Development Coordinator Relationship Specialty Start [place] [address] [place] [address] PCP - General Family Practice 03/21/11 [place] [address] [place] [address] PCP - Assigned PCP 09/10/17 10/16/18 [place] [address] [place] [address] Assigned PCP 09/10/17 04/27/19 [facility] [address] [place] [address] Pharmacist Pharmacist 02/28/19 07/21/20 Alessandra Leblanc APRN [facility] [address] [place] [address] Assigned PCP 04/28/19 05/04/19 [place] [address] [facility] [place] [address] Assigned PCP 05/05/19 02/08/20 [facility] [address] [place] [address] Pharmacist Pharmacist 06/18/19 09/17/19 [place] [address] [facility] [place] [address] Assigned PCP 02/09/20 01/30/21 [facility] [address] [place] [address] Pharmacist Pharmacist 07/22/20 Risa Mcdowell MD [address] [facility], [facility] 100 [place] [address] Assigned OBGYN Provider 12/13/2006/03 Brandi Gutierrez MD PRIMARY [facility]NT [address] [place], [place] [address] Assigned PCP 01/31/21 06/19/21 [place] [address] [place] [address] Assigned PCP 06/20/21 01/07/22 [place] [address] [place] [address] Assigned PCP 01/08/22 07/07/23 Jr Chaparro PA-C [address] [place] [place] [address] Assigned PCP 07/08/23 Nirmala Castrejon, RD [address] [place] [address] [address] [place], [place] [address] Registered Dietitian Dietitian, Registered 04/23/24 documented as of this encounter
--- OUTSIDE RECORDS SUMMARY | 2024-06-20 18:13 | XMS_ITS | Encounter Summary ---
Author Organization [facility] Address [address] [place] [address] Care Team Providers Care Hay Stacker Name Role Phone Maureen Centeno MD Primary Care Provider Maureen Centeno MD Unavailable +[phone] Kayy Allen [facility] Unavailable Unavailable Alessandra Leblanc APRN TANK CLEANER Unavailable + Maureen Centeno MD Unavailable + Barb Sanders [facility] Unavailable +[phone] Maureen Centeno MD Unavailable [phone] Sissy Herrera [facility] Unavailable [phone] Risa Mcdowell MD Unavailable +[phone] Brandi Gutierrez MD Unavailable + Maureen Centeno MD Unavailable [phone] Alejandro Mccarty MD Unavailable Jr Chaparro PA-C Unavailable + [phone] Nirmala Castrejon [address] Unavailable +[phone] Encounter Details Date Type Department Care Team (Late st Contact Info) Description 03/08/2019 [facility] Medical Advice [facility] [address] [place] [address] Jina Martínez APRN TANK CLEANER [address] [place] [address] [address] [place] [address] Social History Tobacco Use Types Packs/Day Years Used Date Smoking Tobacco: Never Smokeless Tobacco: Never Alcohol Use Standard Drinks/Week Comments Yes 0 (1 standard drink = 0.6 oz pur e alcohol) 3 times weekly PHQ-2 Answer Date Recorded PHQ-2 Score 5 12/05/2018 Comments No Sex and Gender Information Value Date Recorded Sex Assigned at Female 10/15/2018 5:37 PM BUSINESS QUALITY ASSURANCE ANALYST Legal Sex Female 3:33 AM BUSINESS QUALITY ASSURANCE ANALYST Gender Identity Female 10/15/2018 5:37 PM BUSINESS QUALITY ASSURANCE ANALYST Sexual Orientation Straight 10/15/2018 5: 37 PM BUSINESS QUALITY ASSURANCE ANALYST documented as of this encounter Plan of Treatment Not on file documented as of this encounter Visit Diagnoses Not on filedocumented in this encounter Additional Health Concerns Assessment Noted Time PHQ-9 Depression Total Score: 18 019 7:24 AM CDT documented as of this encounter Care Teams Hay Stacker Relationship Specialty Start [place] [address] [place] [address] PCP - General Family Practice 03/21/11 [place] [address] [place] [address] Assigned PCP 09/10/17 04/27/19 Kayy Allen RPH [address] [place] [address] Pharmacist Pharmacist 02/28/19 07/21/20 Alessandra Leblanc APRN [employer] [address] [place] [address] Assigned PCP 04/28/19 05/04/[address] [place] [address] [place] [address] Assigned PCP 05/05/19 02/08/20 Barb Sanders, [facility] [address] [place] [address] Pharmacist Pharmacist 06/18/19 09/17/19 [place] [address] [place] [address] Assigned PCP 02/09/20 01/30/21 Sissy Herrera [facility] [address] [place] [address] Pharmacist Pharmacist 07/22/20 Risa Mcdowell MD [address] [facility], [facility] 100 [place] [address] Assigned OBGYN Provider 12/13/2006/03 Brandi Gutierrez MD PR[facility] [address] [place], [place] [address] Assigned PCP 01/31/21 06/19/21 [place] [address] [place] [address] Assigned PCP 06/20/21 01/07/22 [place] [address] [place] [address] Assigned PCP 01/08/22 07/07/23 Jr Chaparro PA-[place] [address] [place] [address] Assigned PCP 07/08/23 Nirmala Castrejon, RD [address] [place] [address] 84 [place] [address] Registered Dietitian Dietitian, Registered 04/23/24 documented as of this encounter
--- OUTSIDE RECORDS SUMMARY | 2024-06-20 18:13 | XMS_ITS | Encounter Summary ---
Author Organization [place] Address [address] [place] [address] Care Team Providers Care Mixing Picker Tender Name Role Phone Maureen Centeno MD Primary Care Provider + Maureen Centeno MD Unavailable + Maureen Centeno MD Unavailable +[phone] Kayy Allen RPH Unavailable Unavailable Alessandra Leblanc APRN [facility] Unavailable + Maureen Centeno MD Unavailable + Barb Sanders RP Unavailable [phone] Maureen Centeno MD Unavailable + Sissy Herrera RPH Unavailable +[phone] Risa Mcdowell MD Unavailable [phone] Brandi Gutierrez MD Unavailable + Maureen Centeno MD Unavailable + Alejandro Mccarty MD Unavailable + Jr Chaparro PA-C Unavailable +1- Nirmala Castrejon RD Unavailable [phone] Reason for Visit * Reason Onset Date Comments Refill Request 02/10/2014 Wellbutrin XL 15 0mg-out of town Encounter Details Date Type Department Care Team (Late st Contact Info) Description 02/10/2014 MyC Medical Advice [address], [address] [place] [address] [place] [address] [place] [address] Refill Request (Wellbutrin XL 150mg-out of... Social History Tobacco Use Types Packs/Day Years Used Date Smoking Tobacco: Never Smokeless Tobacco: Never Alcohol Use Standard Drinks/Week Comments Yes 1.7 (1 standard drink = 0.6 oz p ure alcohol) occasionally Comments No Sex and Gender Information Value Date Recorded Sex Assigned at Female 10/15/2018 5:37 PM HEAD INSULATION BOARD SAW OPERATOR Legal Sex Female 3:33 AM HEAD INSULATION BOARD SAW OPERATOR Gender Identity Female 10/15/2018 5:37 PM HEAD INSULATION BOARD SAW OPERATOR Sexual Orientation Straight 10/15/2018 5: 37 PM HEAD INSULATION BOARD SAW OPERATOR documented as of this encounter Miscellaneous Notes * Telephone Encounter - Brie Solitario RN - 02/10/2014 8:42 AM CDT Patient called. Spoke with patient. Patient out of town currently and does not have her Wellbutrin RX with her since the mail order pharmacy just sent her pills out. Requesting rx refill of 7 pills to get her through. Medication approved per standing orders. Brie Solitario RN documented in this encounter Plan of Treatment Not on file documented as of this encounter Visit Diagnoses Diagnosis Depression, major, recurrent, moderate (H) Major depressive disorder, recurrent episode, moderate documented in this encounter Care Teams Mixing Picker Tender Relationship Specialty Start [place] [address] [place] [address] PCP - General Family Practice 03/21/[address] [place] [address] [place] [address] PCP - Assigned PCP 09/10/17 10/16/18 [place] [address] [place] [address] Assigned PCP 09/10/17 04/27/19 [facility] [address] [place] [address] Pharmacist Pharmacist 02/28/19 07/21/20 Alessandra Leblanc APRN [facility] [address] [place] [address] Assigned PCP 04/28/19 05/04/19 [place] [address] [place] [address] Assigned PCP 05/05/19 02/08/20 Barb Sanders, [facility] [address] [place] [address] Pharmacist Pharmacist 06/18/19 09/17/19 [place] [address] [place] [address] Assigned PCP 02/09/20 01/30/21 [facility] [address] [place] [address] Pharmacist Pharmacist 07/22/20 Risa Mcdowell MD [address], [address] [place], [place] [address] Assigned OBGYN Provider 12/13/2006/03 Brandi Gutierrez MD [facility] [address] [place] [address] Assigned PCP 01/31/21 06/19/21 [place] [address] [address] [place], [place] [address] Assigned PCP 06/20/21 01/07/22 [place] [address] [place], [place] [address] Assigned PCP 01/08/22 07/07/23 Jr Chaparro PA-C [address] [place] [address] Assigned PCP 07/08/23 Nirmala Castrejon, LISA [address] [place] [address] 84 [place] [address] Registered Dietitian Dietitian, Registered 04/23/24 documented as of this encounter
--- OUTSIDE RECORDS SUMMARY | 2024-06-20 18:13 | XMS_ITS | Encounter Summary ---
Author Organization [facility] Address [address] [place] [address] Care Team Providers Care Steam Generating Powerplant Mechanic Name Role Phone Maureen Centeno MD Primary Care Provider + Maureen Centeno MD Unavailable + Maureen Centeno MD Unavailable +[phone] Kayy Allen RPH Unavailable Unavailable Alessandra Leblanc APRN [facility] Unavailable + Maureen Centeno MD Unavailable + Barb Sanders RP Unavailable [phone] Maureen Centeno MD Unavailable + Sissy Herrera RPH Unavailable [phone] Risa Mcdowell MD Unavailable [phone] Brandi Gutierrez MD Unavailable + Maureen Centeno MD Unavailable + Alejandro Mccarty MD Unavailable + Jr Chaparro PA-C Unavailable +1- Nirmala Castrejon RD Unavailable [phone] Reason for Visit * Reason Onset Date Comments MyChart Communication 01/24/2014 Refill Request 01/24/2014 wellbutrin and a cyclovir Encounter Details Date Type Department Care Team (Late st Contact Info) Description 01/24/2014 MyC Medical Advice [address], [address] [place] [address] [place] [address] [place] [address] MyChart Communication; Refill Request (wel... Social History Tobacco Use Types Packs/Day Years Used Date Smoking Tobacco: Never Smokeless Tobacco: Never Alcohol Use Standard Drinks/Week Comments Yes 1.7 (1 standard drink = 0.6 oz p ure alcohol) occasionally Comments No Sex and Gender Information Value Date Recorded Sex Assigned at Female 10/15/2018 5:37 PM RESIDENTIAL REAL ESTATE APPRAISER Legal Sex Female 3:33 AM RESIDENTIAL REAL ESTATE APPRAISER Gender Identity Female 10/15/2018 5:37 PM RESIDENTIAL REAL ESTATE APPRAISER Sexual Orientation Straight 10/15/2018 5: 37 PM RESIDENTIAL REAL ESTATE APPRAISER documented as of this encounter Miscellaneous Notes * Telephone Encounter - Brie Solitario RN - 01/29/2014 7:51 AM CDT PHQ-9 updated 01/29/2014 = 5. Will refill Wellbutrin XL rx. Brie Solitario RN * Telephone Encounter - Chasidy Gonzalez RN - 01/27/2014 8:12 AM CDT 1.) RF request for acyclovir Ok per RN protocol x9 mos. Pt due for OV prior to additional refills. DEYANIRA: 10/21/13 Last Refill: 12/17/12 #90 x3 RF BP Readings from Last 1 Encounters: 03/10/14 112/70 2.) Does not meet standard requirement for RN refill protocol. PHQ-9 > 5, sent pt [employer] message asking her to fill out questionnaire to update. Will wait for response. RF request for Wellbutrin DEYANIRA: 10/21/13 Last Refill: 10/03/13 #30 x5 RF BP Readings from Last 1 Encounters: 10/21/13 Last PHQ-9 score on record= 15 PHQ-9 date: 09/10/13 Chasidy Gonzalez RN [email or web address] documented in this encounter Plan of Treatment Not on file documented as of this encounter Visit Diagnoses Diagnosis HERPES SIMPLEX NOS Herpes simplex without mention of complication Depression, major, recurrent, moderate (H) Major depressive disorder, recurrent episode, moderate documented in this encounter Care Teams Steam Generating Powerplant Mechanic Relationship Specialty Start [place] [address] [place] [address] PCP - General Family Practice 03/21/11 [place] [address] [address] [address] PCP - Assigned PCP 09/10/17 10/16/18 [place] [address] [place] [address] Assigned PCP 09/10/17 04/27/19 Kayy Allen, [facility] [address] [place] [address] Pharmacist Pharmacist 02/28/19 07/21/20 Alessandra Leblanc APRN [employer] [address] [place] [address] Assigned PCP 04/28/19 05/04/19 [place] [address] [place] [address] Assigned PCP 05/05/19 02/08/20 Barb Sanders [facility] [address] [place] [address] Pharmacist Pharmacist 06/18/19 09/17/19 [place] [address] [facility] [address] Assigned PCP 02/09/20 01/30/21 [facility] [address] [place] [address] Pharmacist Pharmacist 07/22/20 Risa Mcdowell MD [address] [address] [place] [address] Assigned OBGYN Provider 12/13/2006/03 Brandi Gutierrez MD [facility] [address] [place], [place] [address] Assigned PCP 01/31/21 06/19/21 [place] [address] [place] [address] Assigned PCP 06/20/21 01/07/22 [place] [address] [place], [place] [id number] Assigned PCP 01/08/22 07/07/23 Jr Chaparro PA-C [address] [place], [place] [id number] Assigned PCP 07/08/23 Nirmala Castrejon, RD [address] [place] [address] [address] [place] [address] Registered Dietitian Dietitian, Registered 04/23/24 documented as of this encounter
--- OUTSIDE RECORDS SUMMARY | 2024-06-20 18:13 | XMS_ITS | Encounter Summary ---
Author Organization [facility] Address [address] [place] [address] Care Team Providers Care Teradata Solution Architect Name Role Phone Maureen Centeno MD Primary Care Provider + Maureen Centeno MD Unavailable + Maureen Centeno MD Unavailable +10 Kayy Allen RPH Unavailable Unavailable Alessandra Leblanc APRN [facility] Unavailable + Maureen Centeno MD Unavailable + Barb Sanders RP Unavailable [phone] Maureen Centeno MD Unavailable + Sissy Herrera RPH Unavailable [phone] Risa Mcdowell MD Unavailable [phone] Brandi Gutierrez MD Unavailable + Maureen Centeno MD Unavailable + Alejandro Mccarty MD Unavailable + Jr Chaparro PA-C Unavailable +1- Nirmala Castrejon RD Unavailable [phone] Encounter Details Date Type Department Care Team (Latest Contact Info) Description 03/31/2017 Historic Results Social History Tobacco Use Types Packs/Day Years Used Date Smoking Tobacco: Never Smokeless Tobacco: Never Alcohol Use Standard Drinks/Week Comments Yes 0 (1 standard drink = 0.6 oz pur e alcohol) Occasional Comments No Sex and Gender Information Value Date Recorded Sex Assigned at Female 10/15/2018 5:37 PM AMBULANCE MECHANIC Legal Sex Female 3:33 AM AMBULANCE MECHANIC Gender Identity Female 10/15/2018 5:37 PM AMBULANCE MECHANIC Sexual Orientation Straight 10/15/2018 5: 37 PM AMBULANCE MECHANIC documented as of this encounter Plan of Treatment Not on file documented as of this encounter Visit Diagnoses Not on filedocumented in this encounter Additional Health Concerns Assessment Noted Time PHQ-9 Depression Total Score: 13 017 10:47 AM CDT documented as of this encounter Care Teams Teradata Solution Architect Relationship Specialty Start [place] [address] [address] [address] PCP - General Family Practice 03/21/11 [place] [address] [place] [address] PCP - Assigned PCP 09/10/17 10/16/18 [place] [address] [place] [address] Assigned PCP 09/10/17 04/27/19 Kayy Allen RPH [address] [place] [address] Pharmacist Pharmacist 02/28/19 07/21/20 Alessandra Leblanc APRN [employer] [address] [place] [address] Assigned PCP 04/28/19 05/04/19 [place] [address] [place] [address] Assigned PCP 05/05/19 02/08/20 Barb Sanders, [facility] [address] [place] [address] Pharmacist Pharmacist 06/18/19 09/17/19 [place] [address] [place] [address] Assigned PCP 02/09/20 01/30/21 Sissy Herrera [facility] [address] [place], [place] [id number] Pharmacist Pharmacist 07/22/20 Risa Mcdowell MD [address] [facility], [facility] [address] [place] [address] Assigned OBGYN Provider 12/13/2006/03 Brandi Gutierrez MD [facility] [address] [facility] [address] [place], [place] [address] Assigned PCP 01/31/21 06/19/21 [place] [address] [place] [address] Assigned PCP 06/20/21 01/07/22 [place] [address] [place] [address] Assigned PCP 01/08/22 07/07/23 Jr Chaparro PA-C [address] [place] [id number] Assigned PCP 07/08/23 Nrimala Castrejon, RD [address] [place] [address] [address] [place], [place] [address] Registered Dietitian Dietitian, Registered 04/23/24 documented as of this encounter
--- OUTSIDE RECORDS SUMMARY | 2024-06-20 18:13 | XMS_ITS | Encounter Summary ---
Author Organization [facility] Address [address] [place] [address] Care Team Providers Care Senior Sql Database Developer Name Role Phone Maureen Centeno MD Primary Care Provider + Maureen Centeno MD Unavailable + Maureen Centeno MD Unavailable +[phone] Kayy Allen RPH Unavailable Unavailable Alessandra Leblanc APRN [facility] Unavailable + Maureen Centeno MD Unavailable + Barb Sanders RP Unavailable Maureen Centeno MD Unavailable + Sissy Herrera RPH Unavailable [phone] Risa Mcdowell MD Unavailable [phone] Brandi Gutierrez MD Unavailable + Maureen Centeno MD Unavailable + Alejandro Mccarty MD Unavailable + Jr Chaparro PA-C Unavailable +1- Nirmala Castrejon RD Unavailable [phone] Encounter Details Date Type Department Care Team (Late st Contact Info) Description 04/04/2018 MyC Medical Advice [address], [address] [place] [id number] [place] [address] [place] [address] Social History Tobacco Use Types Packs/Day Years Used Date Smoking Tobacco: Never Smokeless Tobacco: Never Alcohol Use Standard Drinks/Week Comments Yes 0 (1 standard drink = 0.6 oz pur e alcohol) 3 times weekly Comments No Sex and Gender Information Value Date Recorded Sex Assigned at Female 10/15/2018 5:37 PM SHOULDER PUNCHER Legal Sex Female 3:33 AM SHOULDER PUNCHER Gender Identity Female 10/15/2018 5:37 PM SHOULDER PUNCHER Sexual Orientation Straight 10/15/2018 5: 37 PM SHOULDER PUNCHER documented as of this encounter Plan of Treatment Not on file documented as of this encounter Visit Diagnoses Not on filedocumented in this encounter Additional Health Concerns Assessment Noted Time PHQ-9 Depression Total Score: 13 018 7:11 AM CDT documented as of this encounter Care Teams Senior Sql Database Developer Relationship Specialty Start [place] [address] [place] [place] [address] PCP - General Family Practice 03/21/11 [place] [address] [place] [address] PCP - Assigned PCP 09/10/17 10/16/18 [place] [address] [place] [address] Assigned PCP 09/10/17 04/27/19 Kayy Allen [facility] [address] [place] [address] Pharmacist Pharmacist 02/28/19 07/21/20 Alessandra Leblanc APRN RADIO TOWER TECHNICIAN [address] [place] [address] Assigned PCP 04/28/19 05/04/19 [place] [address] [facility] [place] [address] Assigned PCP 05/05/19 02/08/20 [facility] [address] [place] [address] Pharmacist Pharmacist 06/18/19 09/17/19 [place] [address] [address] [facility] [place] [address] Assigned PCP 02/09/20 01/30/21 [facility] [address] [place] [address] Pharmacist Pharmacist 07/22/20 Risa Mcdowell MD [address] [facility] [address] [place] [address] Assigned OBGYN Provider 12/13/2006/03 Brandi Gutierrez MD PR[facility] [address] [place], [place] [address] Assigned PCP 01/31/21 06/19/21 [place] [address] [place] [address] Assigned PCP 06/20/21 01/07/22 [place] [address] [place] [address] Assigned PCP 01/08/22 07/07/23 Jr Chaparro PA-C [address] [place], [place] [address] Assigned PCP 07/08/23 Nirmala Castrejon, RD [address] [place] [address] 84 [place] [address] Registered Dietitian Dietitian, Registered 04/23/24 documented as of this encounter
--- OUTSIDE RECORDS SUMMARY | 2024-06-20 18:13 | XMS_ITS | Encounter Summary ---
Author Organization [facility] Address [address] [place] [address] Care Team Providers Care Chemical Recovery Operator Name Role Phone Maureen Centeno MD Primary Care Provider + Maureen Centeno MD Unavailable + Maureen Centeno MD Unavailable +[phone] Kayy Allen RPH Unavailable Unavailable Alessandra Leblanc APRN [facility] Unavailable + Maureen Centeno MD Unavailable + Barb Sanders RP Unavailable [phone] Maureen Centeno MD Unavailable + Sissy Herrera RPH Unavailable [phone] Risa Mcdowell MD Unavailable [phone] Brandi Gutierrez MD Unavailable + Maureen Centeno MD Unavailable + Alejandro Mccarty MD Unavailable + Jr Chaparro PA-C Unavailable +1- Nirmala Castrejon RD Unavailable [phone] Reason for Visit * Reason Onset Date Comments Refill Request 12/18/2017 Multiple meds Encounter Details Date Type Department Care Team (Late st Contact Info) Description 12/18/2017 MyC Refill [address], [address] [place] [address] [place] [address] [address] [place], [place] [id number] Refill Request (Multiple meds) Social History Tobacco Use Types Packs/Day Years Used Date Smoking Tobacco: Never Smokeless Tobacco: Never Alcohol Use Standard Drinks/Week Comments Yes 0 (1 standard drink = 0.6 oz pur e alcohol) Daily Comments No Sex and Gender Information Value Date Recorded Sex Assigned at Female 10/15/2018 5:37 PM STRATEGY PLANNING CONSULTANT Legal Sex Female 3:33 AM STRATEGY PLANNING CONSULTANT Gender Identity Female 10/15/2018 5:37 PM STRATEGY PLANNING CONSULTANT Sexual Orientation Straight 10/15/2018 5: 37 PM STRATEGY PLANNING CONSULTANT documented as of this encounter Miscellaneous Notes * Telephone Encounter - Maureen Centeno MD - 12/19/2017 1:30 PM CDT Needs appt as failing PHQ-9 * Telephone Encounter - Brie Solitario RN - 12/19/2017 11:46 AM CDT Prescription approved per [facility] Refill Protocol - Aciphex, Zovirax Routing refill request to provider for review/approval because: Drug not on the [facility] refill protocol - Sulfa PHQ-9 > 4 - Sertraline Brie Solitario RN * Telephone Encounter - Karyna Gutierrez - 12/19/2017 9:55 AM CDT Requested Prescriptions Pending Prescriptions Disp Refills ??? sertraline (ZOLOFT) 100 MG tablet Last Written Prescription Date: 09/19/17 Last Fill Quantity: 30, # refills: 0 Last Office Visit: 10/25/2017 Future Office Visit: Next 5 appointments (look out 90 days) Jan 22, 2018 7:40 AM CDT Pre-Op physical with Maureen Centeno MD [facility] ([facility]) [address] [place] [address], [address] [address] 30 tablet 0 SSRIs Protocol Failed 12/19/2017 8:38 AM Failed - PHQ-9 score less than 5 in past 6 months PHQ-9 SCORE 03/31/2017 07/27/2017 10/24/2017 Total Score - - - Total Score MyChart - 13 (Moderate depression) 9 (Mild depression) Total Score 13 13 9 HUEY-7 SCORE 09/27/2016 03/31/2017 10/24/2017 Total Score - - - Total Score - - 15 (severe anxiety) Total Score 17 15 15 Passed - Patient is age 18 or older Passed - No active on record Passed - No positive test in last 12 months Passed - Recent (6 mo) or future (30 days) visit within the authorizing provider's specialty Patient had office visit in the last 6 months or has a visit in the next 30 days with authorizing provider or within the authorizing provider's specialty. See Patient Info tab in inbasket, or Choose Columns in Meds & Orders section of the refill encounter. ??? RABEprazole (ACIPHEX) 20 MG EC tablet 90 tablet 1 Last Written Prescription Date: 10/25/17 Last Fill Quantity: 90, # refills: 1 Last Office Visit: 10/25/2017 Future Office Visit: Next 5 appointments (look out 90 days) Jan 22, 2018 7:40 AM CDT Pre-Op physical with Maureen Centeno MD [facility] ([facility]) [address] [address] Sig: Take 1 tablet (20 mg) by mouth daily PPI Protocol Passed 12/19/2017 8:38 AM Passed - Not on Clopidogrel (unless Pantoprazole ordered) Passed - No diagnosis of osteoporosis on record Passed - Recent (12 mo) or future (30 days) visit within the authorizing provider's specialty Patient had office visit in the last 12 months or has a visit in the next 30 days with authorizing provider or within the authorizing provider's specialty. See Patient Info tab in inbasket, or Choose Columns in Meds & Orders section of the refill encounter. Passed - Patient is age 18 or older Passed - No active pregnacy on record Passed - No positive test in past 12 months ??? acyclovir (ZOVIRAX) 400 MG tablet 90 tablet 1 Last Written Prescription Date: 10/25/17 Last Fill Quantity: 90, # refills: 1 Last Office Visit: 10/25/2017 Future Office Visit: Next 5 appointments (look out 90 days) Jan 22, 2018 7:40 AM CDT Pre-Op physical with Maureen Centeno MD [facility] ([facility]) [facility], [address] [address] Sig: Take 1 tablet (400 mg) by mouth daily Antivirals for Herpes Protocol Passed 12/19/2017 8:38 AM Passed - Patient is age 12 or older Passed - Recent (12 mo) or future (30 days) visit within the authorizing provider's specialty Patient had office visit in the last 12 months or has a visit in the next 30 days with authorizing provider or within the authorizing provider's specialty. See Patient Info tab in inbasket, or Choose Columns in Meds & Orders section of the refill encounter. Passed - Normal serum creatinine on file in past 12 months Recent Labs Lab Test 10/25/17 0828 CR 0.78 ??? sulfamethoxazole-trimethoprim (BACTRIM DS/SEPTRA DS) 800-160 MG per tablet 30 tablet 3 Last Written Prescription Date: 10/25/17 Last Fill Quantity: 30, # refills: 3 Last Office Visit: 10/25/2017 Future Office Visit: Next 5 appointments (look out 90 days) Jan 22, 2018 7:40 AM CDT Pre-Op physical with Maureen Centeno MD [facility] ([facility]) [address] [place] [address], [address] [address] Sig: one tablet right after intercourse and one tablet 12 hours after intercourse Oral Acne/Rosacea Medications Protocol Failed 12/19/2017 8:38 AM Failed - Confirmation of diagnosis is required Please confirm diagnosis is acne or rosacea. If NOT acne or rosacea; refer request to provider for further evaluation. If diagnosis IS acne or rosacea, OK to refill BASED ON PREVIOUS REFILL CLINICAL NOTE RECOMMENDATION. Passed - Patient is 12 years of age or older Passed - Recent (12 mo) or future (30 days) visit within the authorizing provider's specialty Patient had office visit in the last 12 months or has a visit in the next 30 days with authorizing provider or within the authorizing provider's specialty. See Patient Info tab in inbasket, or Choose Columns in Meds & Orders section of the refill encounter. Passed - No active on record Passed - No positive prenancy test is past 12 months Associated Diagnoses Recurrent UTI [N39.0] * Telephone Encounter - Brie Solitario RN - 12/19/2017 8:31 AM [facility] Original authorizing provider: MD Quynh Menard would like a refill of the following medications: sertraline (ZOLOFT) 100 MG tablet [Maureen Centeno MD] RABEprazole (ACIPHEX) 20 MG EC tablet [Maureen Centeno MD] acyclovir (ZOVIRAX) 400 MG tablet [Maureen Centeno MD] sulfamethoxazole-trimethoprim (BACTRIM DS/SEPTRA DS) 800-160 MG per tablet [Maureen Centeno MD] Preferred pharmacy: [facility] - [address] Comment: documented in this encounter Plan of Treatment Not on file documented as of this encounter Visit Diagnoses Diagnosis Depression, major, recurrent, moderate (H) Major depressive disorder, recurrent episode, moderate Gastroesophageal reflux disease, esophagitis presence not specified HSV (herpes simplex virus) infection Herpes simplex without mention of complication Recurrent UTI Urinary tract infection, site not specified documented in this encounter Additional Health Concerns Assessment Noted Time PHQ-9 Depression Total Score: 9 10/25/ 18 8:00 AM CDT documented as of this encounter Care Teams Chemical Recovery Operator Relationship Specialty Start [place] [address] [address] [address] PCP - General Family Practice 03/21/11 [place] [address] [address] [address] PCP - Assigned PCP 09/10/17 10/16/18 [place] [address] [place] [address] Assigned PCP 09/10/17 04/27/19 Kayy Allen [facility] [address] [place] [address] Pharmacist Pharmacist 02/28/19 07/21/20 Alessandra Leblanc APRN [facility] [address] [place] [address] Assigned PCP 04/28/19 05/04/19 [place] [address] [place] [address] Assigned PCP 05/05/19 02/08/20 Barb Sanders, [facility] [address] [place] [address] Pharmacist Pharmacist 06/18/19 09/17/19 [place] [address] [place] [address] Assigned PCP 02/09/20 01/30/21 [facility] [address] [place] [address] Pharmacist Pharmacist 07/22/20 Risa Mcdowell MD [address] [facility], [address] [address] Assigned OBGYN Provider 12/13/2006/03 Brandi Gutierrez MD PRIMARY [facility] [address] [place] [address] Assigned PCP 01/31/21 06/19/21 [place] [address] [address] 5962568 Assigned PCP 06/20/21 01/07/22 [place] [address] [address] 7465268 Assigned PCP 01/08/22 07/07/23 Jr Chaparro PA-C [address] [address] [address] 3820268 Assigned PCP 07/08/23 Nirmala Castrejon, RD [address] [place] [address] [address] [place], [place] [address] Registered Dietitian Dietitian, Registered 04/23/24 documented as of this encounter
--- OUTSIDE RECORDS SUMMARY | 2024-06-20 18:13 | XMS_ITS | Encounter Summary ---
Author Organization [facility] Address [address] [place] [address] Care Team Providers Care Health Service Worker Name Role Phone Maureen Centeno MD Primary Care Provider + Maureen Centeno MD Unavailable + Maureen Centeno MD Unavailable +[phone] Kayy Allen RPH Unavailable Unavailable Alessandra Leblanc APRN [facility] Unavailable + Maureen Centeno MD Unavailable + Barb Sanders RP Unavailable Maureen Centeno MD Unavailable + Sissy Herrera RPH Unavailable +[phone] Risa Mcdowell MD Unavailable +[phone] Brandi Gutierrez MD Unavailable + Maureen Centeno MD Unavailable + Alejandro Mccarty MD Unavailable + Jr Chaparro PA-C Unavailable +1- Nirmala Castrejon RD Unavailable [phone] Reason for Visit * Reason Onset Date Comments Medication Question 10/26/2017 Cholesterol medication Encounter Details Date Type Department Care Team (Late st Contact Info) Description 10/26/2017 MyC Medical Advice [address], [address] [place] [address] [place] [address] [place] [address] Medication Question (Cholesterol medication) Social History Tobacco Use Types Packs/Day Years Used Date Smoking Tobacco: Never Smokeless Tobacco: Never Alcohol Use Standard Drinks/Week Comments Yes 0 (1 standard drink = 0.6 oz pur e alcohol) Daily Comments No Sex and Gender Information Value Date Recorded Sex Assigned at Female 10/15/2018 5:37 PM PIN STICKER Legal Sex Female 3:33 AM PIN STICKER Gender Identity Female 10/15/2018 5:37 PM PIN STICKER Sexual Orientation Straight 10/15/2018 5: 37 PM PIN STICKER documented as of this encounter Plan of Treatment Not on file documented as of this encounter Visit Diagnoses Not on filedocumented in this encounter Additional Health Concerns Assessment Noted Time PHQ-9 Depression Total Score: 9 10/26/19 18 8:00 AM CDT documented as of this encounter Care Teams Health Service Worker Relationship Specialty Start [place] [address] [place] [address] PCP - General Family Practice 03/21/11 [place] [address] [place] [address] PCP - Assigned PCP 09/10/17 10/16/18 [place] [address] [place] [address] Assigned PCP 09/10/17 04/27/19 [facility] [address] [place] [address] Pharmacist Pharmacist 02/28/19 07/21/20 Alessandra Leblanc APRN [facility] [address] [place] [address] Assigned PCP 04/28/19 05/04/19 [place] [address] [address] [facility] [place] [address] Assigned PCP 05/05/19 02/08/20 [facility] [address] [place] [address] Pharmacist Pharmacist 06/18/19 09/17/19 [place] [address] [address] [facility] [place] [id number] Assigned PCP 02/09/20 01/30/21 [facility] [address] [place] [address] Pharmacist Pharmacist 07/22/20 Risa Mcdowell MD [address] [facility] [place], [place] [address] Assigned OBGYN Provider 12/13/2006/03 Brandi Gutierrez MD [facility] [address] [place], [place] [address] Assigned PCP 01/31/21 06/19/21 [place] [address] [place] [address] Assigned PCP 06/20/21 01/07/22 [place] [address] [place] [id number] Assigned PCP 01/08/22 07/07/23 Jr Chaparro PA-C [address] [address] [place] [id number] Assigned PCP 07/08/23 Nirmala Castrejon, RD [address] [place] [address] 84 [place], [place] [address] Registered Dietitian Dietitian, Registered 04/23/24 documented as of this encounter
--- OUTSIDE RECORDS SUMMARY | 2024-06-20 18:13 | XMS_ITS | Encounter Summary ---
Author Organization [facility] Address [address] [place] [address] Care Team Providers Care Wireless Manager Name Role Phone Maureen Centeno MD Primary Care Provider + Maureen Centeno MD Unavailable + Maureen Cetneno MD Unavailable +[phone] Kayy Allen RPH Unavailable Unavailable Alessandra Leblanc APRN [facility] Unavailable + Maureen Centeno MD Unavailable + Barb Sanders RP Unavailable +[phone] Maureen Centeno MD Unavailable + Sissy Herrera RPH Unavailable +[phone] Risa Mcdowell MD Unavailable +[phone] Brandi Gutierrez MD Unavailable + Maureen Centeno MD Unavailable + Alejandro Mccarty MD Unavailable + Jr Chaparro PA-C Unavailable +1- Nirmala Castrejon RD Unavailable +[phone] Reason for Visit * Reason Onset Date Comments Refill Request 05/16/2018 RABEprazole (ACI PHEX) 20 MG EC tablet Encounter Details Date Type Department Care Team (Late st Contact Info) Description 05/16/[address], [address] [place] [address] [place] [address] [place] [address] Refill Request (RABEprazole (ACIPHEX) 20 MG EC tablet) Social History Tobacco Use Types Packs/Day Years Used Date Smoking Tobacco: Never Smokeless Tobacco: Never Alcohol Use Standard Drinks/Week Comments Yes 0 (1 standard drink = 0.6 oz pur e alcohol) 3 times weekly Comments No Sex and Gender Information Value Date Recorded Sex Assigned at Female 10/15/2018 5:37 PM EXECUTIVE COORDINATOR Legal Sex Female 3:33 AM EXECUTIVE COORDINATOR Gender Identity Female 10/15/2018 5:37 PM EXECUTIVE COORDINATOR Sexual Orientation Straight 10/15/2018 5: 37 PM EXECUTIVE COORDINATOR documented as of this encounter Miscellaneous Notes * Telephone Encounter - Brie Solitario RN - 05/17/2018 11:30 AM CDT Prescription approved per [facility] Refill Protocol. Brie Solitario RN * Telephone Encounter - Amandeep Maria - 05/17/2018 8:32 AM CDT Requested Prescriptions Pending Prescriptions Disp Refills ??? RABEprazole (ACIPHEX) 20 MG EC tablet [Pharmacy Med Name: RABEPRAZOLE 20MG TAB] Last Written Prescription Date: 12/19/2017 Last Fill Quantity: 90 tablet, # refills: 1 Last Office Visit: 01/22/2018 Future Office Visit: 90 tablet Sig: TAKE 1 TABLET BY MOUTH DAILY PPI Protocol Passed 05/16/2018 8:04 PM Passed - Not on Clopidogrel (unless Pantoprazole [...] No positive test in past 12 months documented in this encounter Plan of Treatment Not on file documented as of this encounter Visit Diagnoses Diagnosis Gastroesophageal reflux disease, esophagitis presence not specified documented in this encounter Additional Health Concerns Assessment Noted Time PHQ-9 Depression Total Score: 13 018 7:11 AM CDT documented as of this encounter Care Teams Wireless Manager Relationship Specialty Start [place] [address] [place] [address] PCP - General Family Practice 03/21/11 [place] [address] [place] [address] PCP - Assigned PCP 09/10/17 10/16/18 [place] [address] [place] [address] Assigned PCP 09/10/17 04/27/19 Kayy Allen RPH [address] [place] [address] Pharmacist Pharmacist 02/28/19 07/21/20 Alessandra Leblanc APRN CNP [address] [place] [address] Assigned PCP 04/28/19 05/04/19 [place] [address] [place] [address] Assigned PCP 05/05/19 02/08/20 Barb Sanders, [facility] [address] [place] [address] Pharmacist Pharmacist 06/18/19 09/17/[address] [place] [address] [address] [place], [place] [phone] Assigned PCP 02/09/20 01/30/21 Sissy Herrera [facility] [address] [place], [place] [phone] Pharmacist Pharmacist 07/22/20 Risa Mcdowell MD [address] [facility] [address] [place] [address] Assigned OBGYN Provider 12/13/2006/03 Brandi Gutierrez MD PR[facility] [address] [place] [address] Assigned PCP 01/31/21 06/19/21 [place] [address] [place] [place], [place] [address] Assigned PCP 06/20/21 01/07/22 [place] [address] [address] [place] [place] [id number] Assigned PCP 01/08/22 07/07/23 Jr Chaparro PA-C 13907 [facility] [place], [place] 7[address]68 Assigned PCP 07/08/23 Nirmala Castrejon, RD [address] [place] [address] 84 [place] [address] Registered Dietitian Dietitian, Registered 04/23/24 documented as of this encounter
--- OUTSIDE RECORDS SUMMARY | 2024-06-20 18:13 | XMS_ITS | Encounter Summary ---
Author Organization [facility] Address [address] [place] [address] Care Team Providers Care Glass Mold Repairer Name Role Phone Maureen Centeno MD Primary Care Provider + Maureen Centeno MD Unavailable + Maureen Centeno MD Unavailable +[phone] Kayy Allen RPH Unavailable Unavailable Alessandra Leblanc APRN [facility] Unavailable + Maureen Centeno MD Unavailable + Barb Sanders RP Unavailable [phone] Maureen Centeno MD Unavailable + Sissy Herrera RPH Unavailable +[phone] Risa Mcdowell MD Unavailable +[phone] Brandi Gutierrez MD Unavailable + Maureen Centeno MD Unavailable + Alejandro Mccarty MD Unavailable + Jr Chaparro PA-C Unavailable +1- Nirmala Castrejon RD Unavailable [phone] Encounter Details Date Type Department Care Team (Late st Contact Info) Description 06/29/2017 MyC Medical Advice [address], [address] [place] [address] Brie Solitario, TITI Social History Tobacco Use Types Packs/Day Years Used Date Smoking Tobacco: Never Smokeless Tobacco: Never Alcohol Use Standard Drinks/Week Comments Yes 0 (1 standard drink = 0.6 oz pur e alcohol) Occasional Comments No Sex and Gender Information Value Date Recorded Sex Assigned at Female 10/15/2018 5:37 PM DELI SLICER Legal Sex Female 3:33 AM DELI SLICER Gender Identity Female 10/15/2018 5:37 PM DELI SLICER Sexual Orientation Straight 10/15/2018 5: 37 PM DELI SLICER documented as of this encounter Plan of Treatment Not on file documented as of this encounter Visit Diagnoses Not on filedocumented in this encounter Additional Health Concerns Assessment Noted Time PHQ-9 Depression Total Score: 13 017 7:41 AM DELI SLICER documented as of this encounter Care Teams Glass Mold Repairer Relationship Specialty Start [place] [address] [place] [address] PCP - General Family Practice 03/21/11 [place] [address] [place] [address] PCP - Assigned PCP 09/10/17 10/16/18 [place] [address] [place] [address] Assigned PCP 09/10/17 04/27/19 Kayy Allen RPH [address] [place] [address] Pharmacist Pharmacist 02/28/19 07/21/20 Alessandra Leblanc APRN [place] [address] [place] [address] Assigned PCP 04/28/19 05/04/19 [place] [address] [place] [address] Assigned PCP 05/05/19 02/08/20 Barb Sanders, [facility] [address] [place] [address] Pharmacist Pharmacist 06/18/19 09/17/19 [place] [address] [place] [address] Assigned PCP 02/09/20 01/30/21 [facility] [address] [place], [place] [phone] Pharmacist Pharmacist 07/22/20 Risa Mcdowell MD [address] [facility] [address] [place] [address] Assigned OBGYN Provider 12/13/2006/03 Brandi Gutierrez MD [facility] [address] [place], [place] [id number] Assigned PCP 01/31/21 06/19/21 [place] [address] [place] [address] Assigned PCP 06/20/21 01/07/22 [place] [address] [place] [id number] Assigned PCP 01/08/22 07/07/23 Jr Chaparro PA-C [address] [place] [phone] Assigned PCP 07/08/23 Nirmala Castrejon, LISA [address] [place] [address] 84 [place], [place] [address] Registered Dietitian Dietitian, Registered 04/23/24 documented as of this encounter
--- OUTSIDE RECORDS SUMMARY | 2024-06-20 18:13 | XMS_ITS | Encounter Summary ---
Author Organization [facility] Address [address] [place] [address] Care Team Providers Care Filler Shredder Name Role Phone Maureen Centeno MD Primary Care Provider Maureen Centeno MD Unavailable [phone] Kayy Allen [facility] Unavailable Unavailable Alessandra Leblanc APRN [facility] Unavailable + Maureen Centeno MD Unavailable +[phone] Barb Sanders [facility] Unavailable [phone] Maureen Centeno MD Unavailable +[phone] Sissy Herrera [facility] Unavailable [phone] Risa Mcdowell MD Unavailable +[phone] Brandi Gutierrez MD Unavailable + Maureen Centeno MD Unavailable [phone] Alejandro Mccarty MD Unavailable Jr Chaparro PA-C Unavailable + [phone] Nirmala Castrejon RD Unavailable +[phone] Reason for Visit * Reason Onset Date Comments MyChart Communication 03/25/2019 Encounter Details Date Type Department Care Team (Late st Contact Info) Description 03/25/2019 MyC Medical Advice [address] [place] [address], [address] [place] [address] [place] [address] [place] [address] MyChart Communication Social History Tobacco Use Types Packs/Day Years Used Date Smoking Tobacco: Never Smokeless Tobacco: Never Alcohol Use Standard Drinks/Week Comments Yes 0 (1 standard drink = 0.6 oz pur e alcohol) 3 times weekly PHQ-2 Answer Date Recorded PHQ-2 Score 5 12/05/2018 Comments No Sex and Gender Information Value Date Recorded Sex Assigned at Female 10/15/2018 5:37 PM LABELLING MACHINE OPERATOR Legal Sex Female 3:33 AM LABELLING MACHINE OPERATOR Gender Identity Female 10/15/2018 5:37 PM LABELLING MACHINE OPERATOR Sexual Orientation Straight 10/15/2018 5: 37 PM LABELLING MACHINE OPERATOR documented as of this encounter Miscellaneous Notes * Telephone Encounter - Parvin Mora RN - 03/26/2019 10:06 AM CDT Responded to the Pt. Advised follow up visit per Dr. Centeno's notes. Parvin Mora RN -- [facility] documented in this encounter Plan of Treatment Not on file documented as of this encounter Visit Diagnoses Not on filedocumented in this encounter Additional Health Concerns Assessment Noted Time PHQ-9 Depression Total Score: 18 019 7:24 AM CDT documented as of this encounter Care Teams Filler Shredder Relationship Specialty [place] [address] [address] [address] PCP - General Family Practice 03/21/[address] [place] [address] [place] [address] Assigned PCP 09/10/17 04/27/19 [facility] [address] [place] [address] Pharmacist Pharmacist 02/28/19 07/21/20 Alessandra Leblanc APRN [facility] [address] [place] [address] Assigned PCP 04/28/19 05/04/19 [place] [address] [place] [address] Assigned PCP 05/05/19 02/08/20 [facility] [address] [place] [address] Pharmacist Pharmacist 06/18/19 09/17/19 [place] [address] [place] [address] Assigned PCP 02/09/20 01/30/21 [facility] [address] [place] [address] Pharmacist Pharmacist 07/22/20 Risa Mcdowell MD [address] [address] Assigned OBGYN Provider 12/13/2006/03 Brandi Gutierrez MD PRIMARY [facility]NT [address] [facility] [address] [place], [place] [address] Assigned PCP 01/31/21 06/19/21 [place] [address] [place], [place] 34144[address] Assigned PCP 06/20/21 01/07/22 [place] [address] [place], [place] 95410[address] Assigned PCP 01/08/22 07/07/23 Jr Chaparro PA-C [address] [place], [place] 424[address] Assigned PCP 07/08/23 Nirmala Castrejon, RD [address] [place] [address] 84 [place] [address] Registered Dietitian Dietitian, Registered 04/23/24 documented as of this encounter
--- OUTSIDE RECORDS SUMMARY | 2024-06-20 18:13 | XMS_ITS | Encounter Summary ---
Author Organization [facility] Address [address] [place] [address] Care Team Providers Care Security Chief Museum Name Role Phone Maureen Centeno MD Primary Care Provider + Maureen Centeno MD Unavailable + Maureen Centeno MD Unavailable +[phone] Kayy Allen RPH Unavailable Unavailable Alessandra Leblanc APRN [facility] Unavailable + Maureen Centeno MD Unavailable + Barb Sanders RP Unavailable Maureen Centeno MD Unavailable + Sissy Herrera RPH Unavailable +[phone] Risa Mcdowell MD Unavailable [phone] Brandi Gutierrez MD Unavailable + Maureen Centeno MD Unavailable + Alejandro Mccarty MD Unavailable + Jr Chaparro PA-C Unavailable +1- Nirmala Castrejon RD Unavailable +[phone] Reason for Visit * Reason Onset Date Comments Refill Request 09/28/2018 acyclovir (ZOVIR AX) 400 MG tablet Encounter Details Date Type Department Care Team (Late st Contact Info) Description 09/28/[address], [address] [place] [address] [place] [address] [place] [address] Refill Request (acyclovir (ZOVIRAX) 400 MG tablet) Social History Tobacco Use Types Packs/Day Years Used Date Smoking Tobacco: Never Smokeless Tobacco: Never Alcohol Use Standard Drinks/Week Comments Yes 0 (1 standard drink = 0.6 oz pur e alcohol) 3 times weekly PHQ-2 Answer Date Recorded PHQ-2 Score 4 08/21/2018 Comments No Sex and Gender Information Value Date Recorded Sex Assigned at Female 10/15/2018 5:37 PM FIELD CONTACT TECHNICIAN Legal Sex Female 3:33 AM FIELD CONTACT TECHNICIAN Gender Identity Female 10/15/2018 5:37 PM FIELD CONTACT TECHNICIAN Sexual Orientation Straight 10/15/2018 5: 37 PM FIELD CONTACT TECHNICIAN documented as of this encounter Miscellaneous Notes * Telephone Encounter - Brie Solitario RN - 10/01/2018 9:18 AM CST Prescription approved per [facility] Refill Protocol. Brie Solitario RN D CONTACT TECHNICIAN * Telephone Encounter - Doris Elmore - 09/28/2018 9:12 AM CST Requested Prescriptions Pending Prescriptions Disp Refills ??? acyclovir (ZOVIRAX) 400 MG tablet [Pharmacy Med Name: ACYCLOVIR 400MG TAB] 90 tablet 1 Last Written Prescription Date: 12/19/2017 Last Fill Quantity: 90 tablet, # refills: 1 Last Office Visit: 05/29/2018 Shankar Future Office Visit: Next 5 appointments (look out 90 days) Oct 09, 2018 3:20 PM FIELD CONTACT TECHNICIAN PHYSICAL with Maureen Centeno MD [facility] [address] [facility] [facility] [address] Sig: TAKE 1 TABLET BY MOUTH DAILY Antivirals for Herpes Protocol Passed - 09/28/2018 9:10 AM Passed - Patient is age 10 [...] section of the refill encounter. Passed - Medication is active on med list Passed - Normal serum creatinine on file in past 12 months Recent Labs Lab Test 10/25/17 0828 CR 0.78 D CONTACT TECHNICIAN documented in this encounter Plan of Treatment Not on file documented as of this encounter Visit Diagnoses Diagnosis HSV (herpes simplex virus) infection Herpes simplex without mention of complication documented in this encounter Additional Health Concerns Assessment Noted Time PHQ-9 Depression Total Score: 4 05/30/20 18 7:20 AM CDT documented as of this encounter Care Teams Security Chief Museum Relationship Specialty Start [place] [address] [place] [address] PCP - General Family Practice 03/21/11 [place] [address] [place] [address] PCP - Assigned PCP 09/10/17 10/16/18 [place] [address] [place] [address] Assigned PCP 09/10/17 04/27/19 Kayy Allen [facility] [address] [place] [address] Pharmacist Pharmacist 7/18/19 12/8/20 Alessandra Leblanc APRN [facility] [address] [place], [place] [address] Assigned PCP 04/28/19 05/04/19 [place] [address] [facility] [address] Assigned PCP 05/05/19 02/08/20 [facility] [address] [place], [place] [address] Pharmacist Pharmacist 06/18/19 09/17/19 [place] [address] [address] [facility] [address] Assigned PCP 02/09/20 01/30/21 Sissy [facility] [address] [place] [address] Pharmacist Pharmacist 07/22/20 Risa Mcdowell MD [address] [facility] [address] [place] [address] Assigned OBGYN Provider 12/13/2006/03 Brandi Gutierrez MD [facility] [address] [facility] 350 [place], [place] [address] Assigned PCP 01/31/21 06/19/21 [place] [address] [place] [address] Assigned PCP 06/20/21 01/07/22 [place] [address] [place], [place] [address]37[address] Assigned PCP 01/08/22 07/07/23 Jr Chaparro PA-C [address] [place] [address] Assigned PCP 07/08/23 Nirmala Castrejon, RD [address] [place] [address] 84 [place] [address] Registered Dietitian Dietitian, Registered 04/23/24 documented as of this encounter
--- OUTSIDE RECORDS SUMMARY | 2024-06-20 18:13 | XMS_ITS | Encounter Summary ---
Author Organization [facility] Address [address] [place] [address] Care Team Providers Care Ui Software Engineer Name Role Phone Maureen Centeno MD Primary Care Provider + Maureen Centeno MD Unavailable + Maureen Centeno MD Unavailable +[phone] Kayy Allen RPH Unavailable Unavailable Alessandra Leblanc APRN [facility] Unavailable + Maureen Centeno MD Unavailable + Barb Sanders RP Unavailable [phone] Maureen Centeno MD Unavailable + Sissy Herrera RPH Unavailable +[phone] Risa Mcdowell MD Unavailable [phone] Brandi Gutierrez MD Unavailable + Maureen Centeno MD Unavailable + Alejandro Mccarty MD Unavailable + Jr Chaparro PA-C Unavailable +1- Nirmala Castrejon RD Unavailable [phone] Reason for Visit * Reason Onset Date Comments Medication Request 10/25/2013 Diflucan Encounter Details Date Type Department Care Team (Late st Contact Info) Description 10/25/2013 MyC Medical Advice [address], [address] [place] [address] [place] [address] [place] [address] Medication Request (Diflucan) Social History Tobacco Use Types Packs/Day Years Used Date Smoking Tobacco: Never Smokeless Tobacco: Never Alcohol Use Standard Drinks/Week Comments Yes 1.7 (1 standard drink = 0.6 oz p ure alcohol) occasionally Comments No Sex and Gender Information Value Date Recorded Sex Assigned at Female 10/15/2018 5:37 PM CHIEF CARDIOPULMONARY TECHNOLOGIST Legal Sex Female 3:33 AM CHIEF CARDIOPULMONARY TECHNOLOGIST Gender Identity Female 10/15/2018 5:37 PM CHIEF CARDIOPULMONARY TECHNOLOGIST Sexual Orientation Straight 10/15/2018 5: 37 PM CHIEF CARDIOPULMONARY TECHNOLOGIST documented as of this encounter Miscellaneous Notes * Telephone Encounter - Brie Solitario RN - 10/25/2013 9:02 AM CDT Last OV: 10/21/2013 Medication approved per standing orders. Brie Solitario RN documented in this encounter Plan of Treatment Not on file documented as of this encounter Visit Diagnoses Diagnosis Vaginal candidiasis- Primary Candidiasis of vulva and vagina documented in this encounter Care Teams Ui Software Engineer Relationship Specialty Start [place] [address] [place] [address] PCP - General Family Practice 03/21/11 [place] [address] [place] [address] PCP - Assigned PCP 09/10/17 10/16/18 [place] [address] [place] [address] Assigned PCP 09/10/17 04/27/19 Kayy Allen [facility] [address] [place] [address] Pharmacist Pharmacist 02/28/19 07/21/20 Alessandra Leblanc APRN [facility] [address] [place] [address] Assigned PCP 04/28/19 05/04/19 [place] [address] [place] [address] Assigned PCP 05/05/19 02/08/20 Barb Sanders, [facility] [address] [place] [address] Pharmacist Pharmacist 06/18/19 09/17/[address] [place] [address] [place] [address] Assigned PCP 02/09/20 01/30/21 [facility] [address] [place] [address] Pharmacist Pharmacist 07/22/20 Risa Mcdowell MD [address] [address] Assigned OBGYN Provider 12/13/2006/03 Brandi Gutierrez MD PR[facility] [address] [place] [address] Assigned PCP 01/31/21 06/19/21 [place] [address] [place] 38020[address] Assigned PCP 06/20/21 01/07/22 [place] [address] [place] 17630[address] Assigned PCP 01/08/22 07/07/23 Jr Chaparro PA-C [address] [place] 4290468 Assigned PCP 07/08/23 Nirmala Castrejon, LISA [address] [place] [address], [place] [address] Registered Dietitian Dietitian, Registered 04/23/24 documented as of this encounter
--- OUTSIDE RECORDS SUMMARY | 2024-06-20 18:13 | XMS_ITS | Encounter Summary ---
Author Organization [place] Address [address] [place] [address] Care Team Providers Care Education Program Manager Name Role Phone Maureen Centeno MD Primary Care Provider Kayy Allen [facility] Unavailable Unavailable Maureen Centeno MD Unavailable [phone] Maureen Centeno MD Unavailable +[phone] Sissy Herrera [facility] Unavailable [phone] Risa Mcdowell MD Unavailable +[phone] Brandi Gutierrez MD Unavailable + Maureen Centeno MD Unavailable +[phone] Alejandro Mccarty MD Unavailable Jr Chaparro PA-C Unavailable +[phone] Unavailable +[phone] Encounter Details Date Type Department Care Team (Late st Contact Info) Description 12/25/2019 [facility] Medical Advice [address] [address] Virgie Wilson, FOLLOW UP SPECIALIST Social History Tobacco Use Types Packs/Day Years Used Date Smoking Tobacco: Never Smokeless Tobacco: Never Alcohol Use Standard Drinks/Week Comments Yes 0 (1 standard drink = 0.6 oz pur e alcohol) 3 times weekly PHQ-2 Answer Date Recorded PHQ-2 Score 0 10/29/2019 Comments No Sex and Gender Information Value Date Recorded Sex Assigned at Female 10/15/2018 5:37 PM CHIEF STATION ENGINEER Legal Sex Female 3:33 AM CHIEF STATION ENGINEER Gender Identity Female 10/15/2018 5:37 PM CHIEF STATION ENGINEER Sexual Orientation Straight 10/15/2018 5: 37 PM CHIEF STATION ENGINEER documented as of this encounter Plan of Treatment Not on file documented as of this encounter Visit Diagnoses Not on filedocumented in this encounter Additional Health Concerns Assessment Noted Time PHQ-9 Depression Total Score: 12 020 7:04 AM CDT documented as of this encounter Care Teams Education Program Manager Relationship Specialty [place] [address] [place] [address] PCP - General Family Practice 03/21/11 Kayy Allen [facility] [address] [place] [address] Pharmacist Pharmacist 02/28/19 07/21/20 [place] [address] [address] [address] Assigned PCP 05/05/19 02/08/20 [place] [address] [address] [address] Assigned PCP 02/09/20 01/30/21 Sissy Herrera [facility] [address] [place] [address] Pharmacist Pharmacist 07/22/20 Risa Mcdowell MD [address] [place] [address] Assigned OBGYN Provider 12/13/2006/03 Brandi Gutierrez MD [facility] [address] [place], [place] [id number] Assigned PCP 01/31/21 06/19/21 [place] [address] [address] [place], [place] 787[address] Assigned PCP 06/20/21 01/07/22 [place] [address] [place] [place], [place] [id number] Assigned PCP 01/08/22 07/07/23 Jr Chaparro PA-C [address] [place], [place] 16[address]168 Assigned PCP 07/08/23 Nirmala Castrejon, RD [address] [place] [address] [address] [place], [place] [address] Registered Dietitian Dietitian, Registered 04/23/24 documented as of this encounter
--- OUTSIDE RECORDS SUMMARY | 2024-06-20 18:13 | XMS_ITS | Encounter Summary ---
Author Organization [place] Address [address] [place] [address] Care Team Providers Care Transportation Associate Name Role Phone Maureen Centeno MD Primary Care Provider + Maureen Centeno MD Unavailable + Maureen Centeno MD Unavailable +[phone] Kayy Allen RPH Unavailable Unavailable Alessandra Leblanc APRN [facility] Unavailable + Maureen Centeno MD Unavailable + Barb Sanders RP Unavailable +[phone] Maureen Centeno MD Unavailable + Sissy Herrera RPH Unavailable +[phone] Risa Mcdowell MD Unavailable +[phone] Brandi Gutierrez MD Unavailable + Maureen Centeno MD Unavailable + Alejandro Mccarty MD Unavailable + Jr Chaparro PA-C Unavailable +[phone]- Nirmala Castrejon RD Unavailable [phone] Reason for Visit * Reason Onset Date Comments Back Pain 06/11/2018 Encounter Details Date Type Department Care Team (Late st Contact Info) Description 06/11/2018 My[facility] Medical Advice [address], [address] [place] [address] [place] [address] [address] [address] Back Pain Social History Tobacco Use Types Packs/Day Years Used Date Smoking Tobacco: Never Smokeless Tobacco: Never Alcohol Use Standard Drinks/Week Comments Yes 0 (1 standard drink = 0.6 oz pur e alcohol) 3 times weekly Comments No Sex and Gender Information Value Date Recorded Sex Assigned at Female 10/15/2018 5:37 PM CAR SALESMAN Legal Sex Female 3:33 AM CAR SALESMAN Gender Identity Female 10/15/2018 5:37 PM CAR SALESMAN Sexual Orientation Straight 10/15/2018 5: 37 PM CAR SALESMAN documented as of this encounter Plan of Treatment Not on file documented as of this encounter Visit Diagnoses Not on filedocumented in this encounter Additional Health Concerns Assessment Noted Time PHQ-9 Depression Total Score: 4 05/30/20 18 7:20 AM CDT documented as of this encounter Care Teams Transportation Associate Relationship Specialty [place] [address] [address] [address] PCP - General Family Practice 03/21/11 [place] [address] [address] [address] PCP - Assigned PCP 09/10/17 10/16/18 [place] [address] [address] [address] Assigned PCP 09/10/17 04/27/19 [facility] [address] [place] [address] Pharmacist Pharmacist 02/28/19 07/21/20 Alessandra Leblanc APRN CLINICAL REVIEWER [address] [place] [address] Assigned PCP 04/28/19 05/04/19 [place] [address] [facility] [address] Assigned PCP 05/05/19 02/08/20 [facility] [address] [place] [address] Pharmacist Pharmacist 06/18/19 09/17/19 [place] [address] [facility] [address] Assigned PCP 02/09/20 01/30/21 [facility] [address] [place] [address] Pharmacist Pharmacist 07/22/20 Risa Mcdowell MD [address] [facility], [facility] [address] [place] [address] Assigned OBGYN Provider 12/13/2006/03 Brandi Gutierrez MD [facility] [address] [place], [place] [address]38 Assigned PCP 01/31/21 06/19/21 [place] [address] [address] [address] Assigned PCP 06/20/21 01/07/22 [place] [address] [address] [id number] Assigned PCP 01/08/22 07/07/23 Jr Chaparro PA-C [address] [address] [id number] Assigned PCP 07/08/23 Nirmala Castrejon, RD [address] [place] [address] 84 [place] [address] Registered Dietitian Dietitian, Registered 04/23/24 documented as of this encounter
--- OUTSIDE RECORDS SUMMARY | 2024-06-20 18:13 | XMS_ITS | Encounter Summary ---
Author Organization [place] Address [address] [place] [address] Care Team Providers Care Material Liaison Name Role Phone Maureen Centeno MD Primary Care Provider Maureen Centeno MD Unavailable [phone] Kayy Allen [facility] Unavailable Unavailable Alessandra Leblanc APRN SOLAR ENERGY ENGINEER Unavailable + Maureen Centeno MD Unavailable +[phone] Barb Sanders [facility] Unavailable [phone] Maureen Centeno MD Unavailable +[phone] Sissy Herrera [facility] Unavailable [phone] Risa Mcdowell MD Unavailable +[phone] Brandi Gutierrez MD Unavailable + Maureen Centeno MD Unavailable [phone] Alejandro Mccarty MD Unavailable Jr Chaparro PA-C Unavailable + [phone] Nirmala Castrejon RD Unavailable +[phone] Reason for Visit * Reason Onset Date Comments MyChart Communication 03/25/2019 Encounter Details Date Type Department Care Team (Late st Contact Info) Description 03/25/2019 MyC Medical Advice [address], [address] [place] [phone] Benji Alessandra Kanwal, QUARANTINE OFFICER SOLAR ENERGY ENGINEER [address] [address] [address] MyChart Communication Social History Tobacco Use Types Packs/Day Years Used Date Smoking Tobacco: Never Smokeless Tobacco: Never Alcohol Use Standard Drinks/Week Comments Yes 0 (1 standard drink = 0.6 oz pur e alcohol) 3 times weekly PHQ-2 Answer Date Recorded PHQ-2 Score 5 12/05/2018 Comments No Sex and Gender Information Value Date Recorded Sex Assigned at Female 10/15/2018 5:37 PM CARDIOLOGIST Legal Sex Female 3:33 AM CARDIOLOGIST Gender Identity Female 10/15/2018 5:37 PM CARDIOLOGIST Sexual Orientation Straight 10/15/2018 5: 37 PM CARDIOLOGIST documented as of this encounter Miscellaneous Notes * Telephone Encounter - Parvin Mora RN - 03/26/2019 10:02 AM CDT Responded to the Pt. Advised OV. Parvin Mora RN -- [facility] documented in this encounter Plan of Treatment Not on file documented as of this encounter Visit Diagnoses Not on filedocumented in this encounter Additional Health Concerns Assessment Noted Time PHQ-9 Depression Total Score: 18 019 7:24 AM CDT documented as of this encounter Care Teams Material Liaison Relationship Specialty Start [place] [address] [address] [address] PCP - General Family Practice 03/21/11 [place] [address] [address] [address] Assigned PCP 09/10/17 04/27/19 Kayy Allen [facility] [address] [place] [address] Pharmacist Pharmacist 02/28/19 07/21/20 Alessandra Leblanc APRN [facility] [address] [place], [place] 6988768 Assigned PCP 04/28/19 05/04/19 [place] [address] [place], [place] 7087[address] Assigned PCP 05/05/19 02/08/20 [facility] [address] [place] [address] Pharmacist Pharmacist 06/18/19 09/17/19 [place] [address] [place], [place] 54575[address] Assigned PCP 02/09/20 01/30/21 [facility] [address] [place] [address] Pharmacist Pharmacist 07/22/20 Rias [place]cd[place] MD [address] [facility] [address] [place] [address] Assigned OBGYN Provider 12/13/2006/03 Brandi Gutierrez MD [facility] [address] [place] [address] Assigned PCP 01/31/21 06/19/21 [place] [address] [place], [place] 79129[address] Assigned PCP 06/20/21 01/07/22 [place] [address] [place], [place] 39539[address] Assigned PCP 01/08/22 07/07/23 Jr Chaparro PA-C [address] [place], [place] 7493368 Assigned PCP 07/08/23 Nirmala Castrejon, RD [address] [place] [address] 84 [place] [address] Registered Dietitian Dietitian, Registered 04/23/24 documented as of this encounter
--- OUTSIDE RECORDS SUMMARY | 2024-06-20 18:13 | XMS_ITS | Encounter Summary ---
Author Organization [place] Address [address] [place] [address] Care Team Providers Care Clinical Laboratory Manager Name Role Phone Maureen Centeno MD Primary Care Provider Maureen Centeno MD Unavailable [phone] Kayy Allen [facility] Unavailable Unavailable Alessandra Leblanc APRN PUMP OPERATOR Unavailable + Maureen Centeno MD Unavailable +[phone] Barb Sanders [facility] Unavailable [phone] Maureen Centeno MD Unavailable +[phone] Sissy Herrera [facility] Unavailable [phone] Risa Mcdowell MD Unavailable +[phone] Brandi Gutierrez MD Unavailable + Maureen Centeno MD Unavailable +[phone] Alejandro Mccarty MD Unavailable Jr Chaparro PA-C Unavailable + [phone] Nirmala Castrejon RD Unavailable +[phone] Reason for Visit * Reason Onset Date Comments Medication Refill 01/14/2019 RABEprazole (A CIPHEX) 20 MG EC tablet Encounter Details Date Type Department Care Team (Late st Contact Info) Description 01/13/[address], [address] [place] [address] [place] [address] [place] [address] Medication Refill (RABEprazole (ACIPHEX) 20 MG EC tablet) Social [...] Sex Assigned at Female 10/15/2018 5:37 PM STRAP BUCKLER MACHINE Legal Sex Female 3:33 AM STRAP BUCKLER MACHINE Gender Identity Female 10/15/2018 5:37 PM STRAP BUCKLER MACHINE Sexual Orientation Straight 10/15/2018 5: 37 PM STRAP BUCKLER MACHINE documented as of this encounter Miscellaneous Notes * Telephone Encounter - Brie Solitario RN - 01/14/2019 4:28 PM CDT Prescription approved per [facility] Refill Protocol. Brie Solitario RN * Telephone Encounter - Karyna Gutierrez - 01/14/2019 11:30 AM CDT Images from the original note were not included. Requested Prescriptions Pending Prescriptions Disp Refills ??? RABEprazole (ACIPHEX) 20 MG EC tablet [Pharmacy Med Name: RABEPRAZOLE 20MG TAB] 90 tablet 2 Sig: TAKE 1 TABLET BY MOUTH DAILY Last Written Prescription Date: 05/17/18 Last Fill Quantity: 90, # refills: 2 Last Office Visit: 12/05/2018 Jacobo Return in about 2 weeks (around 12/19/2018) for nurse only appointment, blood pressure check. Future Office Visit: PPI Protocol Passed - 01/13/2019 8:06 PM Passed - Not on Clopidogrel (unless [...] is active on med list Passed - Patient is age 18 or [...] documented as of this encounter Care Teams Clinical Laboratory Manager Relationship Specialty Start [place] [address] [address] [address] PCP - General Family Practice 03/21/11 [place] [address] [address] [address] Assigned PCP 09/10/17 04/27/19 Kayy Allen RPH [address] [place] [address] Pharmacist Pharmacist 02/28/19 07/21/20 Alessandra Leblanc APRN [facility] [address] [address] [address] Assigned PCP 04/28/19 05/04/19 [place] [address] [address] [address] Assigned PCP 05/05/19 02/08/20 Barb Sanders [facility] [address] [place] [address] Pharmacist Pharmacist 06/18/19 09/17/19 [place] [address] [address] [facility] [place] [address] Assigned PCP 02/09/20 01/30/21 Sissy Herrera [facility] [address] [place] [address] Pharmacist Pharmacist 07/22/20 Risa Mcd[place] MD [address] [facility] [address] [place] [address] Assigned OBGYN Provider 12/13/2006/03 Brandi Gutierrez MD PR[facility] [address] [place], [place] [address] Assigned PCP 01/31/21 06/19/21 [place] [address] [place] [address] Assigned PCP 06/20/21 01/07/22 [place] [address] [place] [address] Assigned PCP 01/08/22 07/07/23 Jr Chaparro PA-C [address] [facility] [address] Assigned PCP 07/08/23 Nirmala Castrejon, RD [address] [place] [address] 84 [place], [place] 45[address] Registered Dietitian Dietitian, Registered 04/23/24 documented as of this encounter
--- OUTSIDE RECORDS SUMMARY | 2024-06-20 18:13 | XMS_ITS | Encounter Summary ---
Author Organization [place] Address [address] [place] [address] Care Team Providers Care Blue Leather Sorter Name Role Phone Maureen Centeno MD Primary Care Provider + Maureen Centeno MD Unavailable + Maureen Centeno MD Unavailable +[phone] Kayy Allen RPH Unavailable Unavailable Alessandra Leblanc APRN [facility] Unavailable + Maureen Centeno MD Unavailable + Barb Sanders RP Unavailable Maureen Centeno MD Unavailable + Sissy Herrera RPH Unavailable [phone] Risa Mcdowell MD Unavailable [phone] Brandi Gutierrez MD Unavailable + Maureen Centeno MD Unavailable + Alejandro Mccarty MD Unavailable + Jr Chaparro PA-C Unavailable +[phone]- Nirmala Castrejon RD Unavailable [phone] Encounter Details Date Type Department Care Team (Late st Contact Info) Description 12/01/2014 MyC Medical Advice [address], [address] [place] [address] Sissy Amato Social History Tobacco Use Types Packs/Day Years Used Date Smoking Tobacco: Never Smokeless Tobacco: Never Alcohol Use Standard Drinks/Week Comments Yes 1.7 (1 standard drink = 0.6 oz p ure alcohol) Occasional Comments No Sex and Gender Information Value Date Recorded Sex Assigned at Female 10/15/2018 5:37 PM QUALITY AUDITOR Legal Sex Female 3:33 AM QUALITY AUDITOR Gender Identity Female 10/15/2018 5:37 PM QUALITY AUDITOR Sexual Orientation Straight 10/15/2018 5: 37 PM QUALITY AUDITOR documented as of this encounter Plan of Treatment Not on file documented as of this encounter Visit Diagnoses Not on filedocumented in this encounter Care Teams Blue Leather Sorter Relationship Specialty [place] [address] [address] [address] PCP - General Family Practice 03/21/11 [place] [address] [address] [address] PCP - Assigned PCP 09/10/17 10/16/18 [place] [address] [address] [address] Assigned PCP 09/10/17 04/27/19 Kayy Allen RPH [address] [place] [address] Pharmacist Pharmacist 02/28/19 07/21/20 Alessandra Leblanc APRN SIGNS AND DISPLAYS SALESPERSON [address] [address] [address] Assigned PCP 04/28/19 05/04/[address] [place] [address] [place] [address] Assigned PCP 05/05/19 02/08/20 Barb Sanders [facility] [address] [place] [address] Pharmacist Pharmacist 06/18/19 09/17/[address] [place] [address] [place] [address] Assigned PCP 02/09/20 01/30/21 Sissy Herrera [facility] [address] [place] [address] Pharmacist Pharmacist 07/22/20 Risa Mcdowell MD [address] [facility], [facility] [address] [place] [address] Assigned OBGYN Provider 12/13/2006/03 Brandi Gutierrez MD PRIMARY [facility]NT [address] [place] [address] Assigned PCP 01/31/21 06/19/21 [place] [address] [place] [address] Assigned PCP 06/20/21 01/07/22 [place] [address] [place] [address] Assigned PCP 01/08/22 07/07/23 Jr Chaparro PA-C [address] [place] [address] Assigned PCP 07/08/23 Nirmala Castrejon, RD [address] [place] [address] 84 [place] [address] Registered Dietitian Dietitian, Registered 04/23/24 documented as of this encounter
--- OUTSIDE RECORDS SUMMARY | 2024-06-20 18:13 | XMS_ITS | Encounter Summary ---
Author Organization [place] Address [address] [place] [address] Care Team Providers Care Floor Sander Name Role Phone Maureen Centeno MD Primary Care Provider Maureen Centeno MD Unavailable [phone] Kayy Allen [facility] Unavailable Unavailable Alessandra Leblanc APRN HOB MACHINE OPERATOR Unavailable + Maureen Centeno MD Unavailable +[phone] Barb Sanders [facility] Unavailable [phone] Maureen Centeno MD Unavailable +[phone] Sissy Herrera [facility] Unavailable [phone] Risa Mcdowell MD Unavailable +[phone] Brandi Gutierrez MD Unavailable + Maureen Centeno MD Unavailable [phone] Alejandro Mccarty MD Unavailable Jr Chaparro PA-C Unavailable + [phone] Nirmala Castrejon RD Unavailable +[phone] Reason for Visit * Reason Onset Date Comments Medication Question 12/20/2018 HCTZ Encounter Details Date Type Department Care Team (Late st Contact Info) Description 12/20/2018 MyC Medical Advice [address], [address] [place] [address] [place] [address] [address] [address] Medication Question (HCTZ) Social History Tobacco Use Types Packs/Day Years Used Date Smoking Tobacco: Never Smokeless Tobacco: Never Alcohol Use Standard Drinks/Week Comments Yes 0 (1 standard drink = 0.6 oz pur e alcohol) 3 times weekly PHQ-2 Answer Date Recorded PHQ-2 Score 5 12/05/2018 Comments No Sex and Gender Information Value Date Recorded Sex Assigned at Female 10/15/2018 5:37 PM FIRE PREVENTION RESEARCH ENGINEER Legal Sex Female 3:33 AM FIRE PREVENTION RESEARCH ENGINEER Gender Identity Female 10/15/2018 5:37 PM FIRE PREVENTION RESEARCH ENGINEER Sexual Orientation Straight 10/15/2018 5: 37 PM FIRE PREVENTION RESEARCH ENGINEER documented as of this encounter Plan of Treatment Not on file documented as of this encounter Visit Diagnoses Not on filedocumented in this encounter Additional Health Concerns Assessment Noted Time PHQ-9 Depression Total Score: 18 019 7:24 AM CDT documented as of this encounter Care Teams Floor Sander Relationship Specialty Start [place] [address] [address] [address] PCP - General Family Practice 03/21/11 [place] [address] [address] [address] Assigned PCP 09/10/17 04/27/19 Kayy Allen RPH [address] [place] [address] Pharmacist Pharmacist 02/28/19 07/21/20 Alessandra Leblanc APRN HOB MACHINE OPERATOR [address] [place] [address] Assigned PCP 04/28/19 05/04/19 [place] [address] [place] [address] Assigned PCP 05/05/19 02/08/20 Barb Sanders, [facility] [address] [place] [address] Pharmacist Pharmacist 06/18/19 09/17/[address] [place] [address] [place] [address] Assigned PCP 02/09/20 01/30/21 [facility] [address] [place], [place] [phone] Pharmacist Pharmacist 07/22/20 Risa Mcd[place] MD [address] [place] [address] Assigned OBGYN Provider 12/13/2006/03 Brandi Gutierrez MD PRIMARY [facility]NT [address] [place], [place] [address] Assigned PCP 01/31/21 06/19/21 [place] [address] [place] [address] Assigned PCP 06/20/21 01/07/22 [place] [address] [address] [address] Assigned PCP 01/08/22 07/07/23 Jr Chaparro PA-C [address] [address] [address] Assigned PCP 07/08/23 Nirmala Castrejon, RD [address] [place] [address] 84 [place], [place] 9[address] Registered Dietitian Dietitian, Registered 04/23/24 documented as of this encounter
--- OUTSIDE RECORDS SUMMARY | 2024-06-20 18:14 | XMS_ITS | Encounter Summary ---
Author Organization [place] Address [address] [place] [address] Care Team Providers Care Doll Wigs Hackler Name Role Phone Maureen Centeno MD Primary Care Provider + Maureen Centeno MD Unavailable + Maureen Centeno MD Unavailable +[phone] Kayy Allen RPH Unavailable Unavailable Alessandra Leblanc APRN [facility] Unavailable + Maureen Centeno MD Unavailable + Barb Sanders RP Unavailable Maureen Centeno MD Unavailable + Sissy Herrera RPH Unavailable +[phone] Risa Mcdowell MD Unavailable [phone] Brandi Gutierrez MD Unavailable + Maureen Centeno MD Unavailable + Alejandro Mccarty MD Unavailable + Jr Chaparro PA-C Unavailable +1- Nirmala Castrejon RD Unavailable [phone] Encounter Details Date Type Department Care Team (Late st Contact Info) Description 09/20/[address], [address] [place] [address] [facility] Social History Tobacco Use Types Packs/Day Years Used Date Smoking Tobacco: Never Smokeless Tobacco: Never Alcohol Use Standard Drinks/Week Comments Yes 1.7 (1 standard drink = 0.6 oz p ure alcohol) occasionally Comments No Sex and Gender Information Value Date Recorded Sex Assigned at Female 10/15/2018 5:37 PM MANAGING CONSULTANT Legal Sex Female 3:33 AM MANAGING CONSULTANT Gender Identity Female 10/15/2018 5:37 PM MANAGING CONSULTANT Sexual Orientation Straight 10/15/2018 5: 37 PM MANAGING CONSULTANT documented as of this encounter Plan of Treatment Not on file documented as of this encounter Visit Diagnoses Not on filedocumented in this encounter Care Teams Doll Wigs Hackler Relationship Specialty [place] [address] [address] [address] PCP - General Family Practice 03/21/11 [place] [address] [address] [address] PCP - Assigned PCP 09/10/17 10/16/18 [place] [address] [address] [address] Assigned PCP 09/10/17 04/27/19 Kayy Allen RPH [address] [place] [address] Pharmacist Pharmacist 02/28/19 07/21/20 Alessandra Leblanc APRN [facility] [address] [address] SANTIAGO [id number] Assigned PCP 04/28/19 05/04/19 [place] [address] [place] [address] Assigned PCP 05/05/19 02/08/20 Barb Sanders, [facility] [address] [place] [address] Pharmacist Pharmacist 06/18/19 09/17/19 [place] [address] [place] [address] Assigned PCP 02/09/20 01/30/21 Sissy Hrerera [facility] [address] [place] [address] Pharmacist Pharmacist 07/22/20 Risa Mcdowell MD [address] [facility], [facility] [address] [place] [address] Assigned OBGYN Provider 12/13/2006/03 Brandi Gutierrez MD [facility] [address] [place], [place] [address] Assigned PCP 01/31/21 06/19/21 [place] [address] [place] [address] Assigned PCP 06/20/21 01/07/22 [place] [address] [place] [address] Assigned PCP 01/08/22 07/07/23 Jr Chaparro PA-C [address] [place] [address] Assigned PCP 07/08/23 Nirmala Castrejon, RD [address] [place] [address] 84 [place], [place] [address] Registered Dietitian Dietitian, Registered 04/23/24 documented as of this encounter
--- OUTSIDE RECORDS SUMMARY | 2024-06-20 18:14 | XMS_ITS | Encounter Summary ---
Author Organization [place] Address [address] [place] [address] Care Team Providers Care Documentation Billing Clerk Name Role Phone Maureen Centeno MD Primary Care Provider + Maureen Centeno MD Unavailable + Maureen Centeno MD Unavailable +[phone] Kayy Allen RPH Unavailable Unavailable Alessandra Leblanc APRN [facility] Unavailable + Maureen Centeno MD Unavailable + Barb Sanders RP Unavailable Maureen Centeno MD Unavailable + Sissy Herrera RPH Unavailable [phone] Risa Mcdowell MD Unavailable [phone] Brandi Gutierrez MD Unavailable + Maureen Centeno MD Unavailable + Alejandro Mccarty MD Unavailable + Jr Chaparro PA-C Unavailable +1- Juan JoséNirmala Eid RD Unavailable [phone] Reason for Visit * Reason Onset Date Comments X-ray Results 11/05/2012 Encounter Details Date Type Department Care Team (Late st Contact Info) Description 11/05/2012 MyC Medical Advice [facility] [id number] [place] [address], [address] [place] [id number] [place] [address] [address] [address] X-ray Results Social History Tobacco Use Types Packs/Day Years Used Date Smoking Tobacco: Never Smokeless Tobacco: Never Alcohol Use Standard Drinks/Week Comments Yes 1.7 (1 standard drink = 0.6 oz p ure alcohol) occasionally Comments No Sex and Gender Information Value Date Recorded Sex Assigned at Female 10/15/2018 5:37 PM TERRA COTTA MASON Legal Sex Female 3:33 AM TERRA COTTA MASON Gender Identity Female 10/15/2018 5:37 PM TERRA COTTA MASON Sexual Orientation Straight 10/15/2018 5: 37 PM TERRA COTTA MASON documented as of this encounter Miscellaneous Notes * Telephone Encounter - Brie Solitario - 11/06/2012 11:12 AM CDT [employer] message sent to patient with PHQ-9 attached. Brie Solitario RN * Telephone Encounter - Maureen Centeno MD - 11/06/2012 10:57 AM CDT She is due for another PHQ-9, since last month it was very high. Yes, she must have soft tissue injury, which would not show up on x-ray. Ice, rest and ibu is recommended documented in this encounter Plan of Treatment Not on file documented as of this encounter Visit Diagnoses Not on filedocumented in this encounter Care Teams Documentation Billing Clerk Relationship Specialty Start [place] [address] [address] [address] PCP - General Family Practice 03/21/11 [place] [address] [place] [address] PCP - Assigned PCP 09/10/17 10/16/18 [place] [address] [place] [address] Assigned PCP 09/10/17 04/27/19 Kayy Allen, [facility] [address] [place] [address] Pharmacist Pharmacist 02/28/19 07/21/20 Alessandra Leblanc APRN [facility] [address] [place] [address] Assigned PCP 04/28/19 05/04/19 [place] [address] [place] [address] Assigned PCP 05/05/19 02/08/20 Barb Sanders, [facility] [address] [place] [address] Pharmacist Pharmacist 06/18/19 09/17/19 [place] [address] [place] [address] Assigned PCP 02/09/20 01/30/21 Sissy Herrera [facility] [address] [place] [address] Pharmacist Pharmacist 07/22/20 Risa Mcdowell MD [address] [place] [address] Assigned OBGYN Provider 12/13/2006/03 Brandi Gutierrez MD [facility] [address] [place], [place] [address] Assigned PCP 01/31/21 06/19/21 [place] [address] [facility] [id number] Assigned PCP 06/20/21 01/07/22 [place] [address] [place], [place] [address] Assigned PCP 01/08/22 07/07/23 Jr Chaparro PA-C [address] [facility], [place] [address] Assigned PCP 07/08/23 Nirmala Castrejon, LISA [address] [place] [address] [address] [place], [place] [address] Registered Dietitian Dietitian, Registered 04/23/24 documented as of this encounter
--- OUTSIDE RECORDS SUMMARY | 2024-06-20 18:14 | XMS_ITS | Encounter Summary ---
Author Organization [place] Address [address] [place] [address] Care Team Providers Care Truck Driver Instructor Name Role Phone Louisa Burgos MD Primary Care Provider + Maureen Centeno MD Primary Care Provider Maureen Centeno MD Unavailable [phone] Maureen Centeno MD Unavailable [phone] Kayy Allen RP Unavailable Unavailable Alessandra Leblanc APRN [employer] Unavailable + Maureen Centeno MD Unavailable [phone] Barb Sanders H Unavailable Maureen Centeno MD Unavailable Sissy Herrera [facility] Unavailable Risa Mcdowell MD Unavailable [phone] Brandi Gutierrez MD Unavailable + Maureen Centeno MD Unavailable [phone] Alejandro Mccarty MD Unavailable Jr Chaparro PA-C Unavailable [phone] Unavailable [phone] Reason for Visit * Reason Onset Date Comments Refill Request 09/27/2010 Encounter Details Date Type Department Care Team (Late st Contact Info) Description 09/27/2010 MyC Refill [address], [address] [place] [address] Louisa Burgos MD [address] [place] [address] [address] [place] [address] Refill Request Social History Tobacco Use Types Packs/Day Years Used Date Smoking Tobacco: Never Alcohol Use Standard Drinks/Week Comments Yes 1.7 (1 standard drink = 0.6 oz p ure alcohol) occasionally Comments No Sex and Gender Information Value Date Recorded Sex Assigned at Female 10/15/2018 5:37 PM CREDIT BALANCE SPECIALIST Legal Sex Female 3:33 AM CREDIT BALANCE SPECIALIST Gender Identity Female 10/15/2018 5:37 PM CREDIT BALANCE SPECIALIST Sexual Orientation Straight 10/15/2018 5: 37 PM CREDIT BALANCE SPECIALIST documented as of this encounter Miscellaneous Notes * Telephone Encounter - Maryellen Duran - 09/27/2010 10:35 AM [facility] Quynh Chan would like a refill of the following medications: venlafaxine (EFFEXOR XR) 75 MG 24 hr capsule [Louisa Burgos MD] Preferred pharmacy: [facility] Comment: I have previously called to request a renewal of this medication and have not seen it come through at the pharmacy, please advise, Thanks Quynh Chan IT BALANCE SPECIALIST documented in this encounter Plan of Treatment Not on file documented as of this encounter Visit Diagnoses Diagnosis DEPRESSIVE DISORDER NEC Depressive disorder, not elsewhere classified documented in this encounter Care Teams Truck Driver Instructor Relationship Specialty Start Date End Date Louisa Burgos MD PCP - General Internal Medicine 12/31/09 03/20/11 [place] [address] [place] [address] PCP - General Family Practice 03/21/11 [place] [address] [place] [address] PCP - Assigned PCP 09/10/17 10/16/18 [place] [address] [place] [address] Assigned PCP 09/10/17 04/27/19 Kayy Allen, [facility] [address] [address] Pharmacist Pharmacist 02/28/19 07/21/20 Alessandra Leblanc APRN [facility] [address] [place] [address] Assigned PCP 04/28/19 05/04/19 [place] [address] [place] [address] Assigned PCP 05/05/19 02/08/20 [facility] [address] [place] [address] Pharmacist Pharmacist 06/18/19 09/17/19 [place] [address] [place] [address] Assigned PCP 02/09/20 01/30/[address] [facility] [address] [place] [address] Pharmacist Pharmacist 07/22/20 Risa Mcdowell MD [address] [place], [place] [address] Assigned OBGYN Provider 12/13/2006/03 Brandi Gutierrez MD [facility] [address] [place] [address] Assigned PCP 01/31/21 06/19/21 [place] [address] [place] [place], [place] [address] Assigned PCP 06/20/21 01/07/22 [place] [address] [place] [address] Assigned PCP 01/08/22 07/07/23 Jr Chaparro PA-C [address] [place] [place], [place] [address] Assigned PCP 07/08/23 Nirmala Castrejon, RD [address] [facility] [address] [place], [place] [address] Registered Dietitian Dietitian, Registered 04/23/24 documented as of this encounter
--- OUTSIDE RECORDS SUMMARY | 2024-06-20 18:14 | XMS_ITS | Encounter Summary ---
Author Organization [place] Address [address] [place] [address] Care Team Providers Care Assurance Sourcing Manager Name Role Phone Maureen Centeno MD Primary Care Provider + Maureen Centeno MD Unavailable + Maureen Centeno MD Unavailable +[phone] Kayy Allen RPH Unavailable Unavailable Alessandra Leblanc APRN [facility] Unavailable + Maureen Centeno MD Unavailable + Barb Sanders RP Unavailable Maureen Centeno MD Unavailable + Sissy Herrera RPH Unavailable [phone] Risa Mcdowell MD Unavailable [phone] Brandi Gutierrez MD Unavailable + Maureen Centeno MD Unavailable + Alejandro Mccarty MD Unavailable + Jr Chaparro PA-C Unavailable +1- Nirmala Castrejon RD Unavailable [phone] Encounter Details Date Type Department Care Team (Late st Contact Info) Description 12/13/[address], [address] [place] [address] [facility] Social History Tobacco Use Types Packs/Day Years Used Date Smoking Tobacco: Never Smokeless Tobacco: Never Alcohol Use Standard Drinks/Week Comments Yes 1.7 (1 standard drink = 0.6 oz p ure alcohol) occasionally Comments No Sex and Gender Information Value Date Recorded Sex Assigned at Female 10/15/2018 5:37 PM POLISHER AND SANDER Legal Sex Female 3:33 AM POLISHER AND SANDER Gender Identity Female 10/15/2018 5:37 PM POLISHER AND SANDER Sexual Orientation Straight 10/15/2018 5: 37 PM POLISHER AND SANDER documented as of this encounter Plan of Treatment Not on file documented as of this encounter Visit Diagnoses Not on filedocumented in this encounter Care Teams Assurance Sourcing Manager Relationship Specialty [place] [address] [address] [address] PCP - General Family Practice 03/21/11 [place] [address] [address] [address] PCP - Assigned PCP 09/10/17 10/16/18 [place] [address] [address] [address] Assigned PCP 09/10/17 04/27/19 Kayy Allen RPH [address] [place] [address] Pharmacist Pharmacist 02/28/19 07/21/20 Alessandra Leblanc APRN SCRAP METAL COLLECTOR [address] [address] [address]16[address] Assigned PCP 04/28/19 05/04/19 [place] [address] [place] [address] Assigned PCP 05/05/19 02/08/20 Barb Sanders, [facility] [address] [place] [address] Pharmacist Pharmacist 06/18/19 09/17/19 [place] [address] [place] [address] Assigned PCP 02/09/20 01/30/21 Sissy Herrera [facility] [address] [place] [address] Pharmacist Pharmacist 07/22/20 Risa Mcdowell MD [address] [facility], [facility] 100 [place] [address] Assigned OBGYN Provider 12/13/2006/03 Brandi Gutierrez MD [facility] [address] [place], [place] [address] Assigned PCP 01/31/21 06/19/21 [place] [address] [place] [address] Assigned PCP 06/20/21 01/07/22 [place] [address] [place] [address] Assigned PCP 01/08/22 07/07/23 Jr Chaparro PA-[place] [address] [place] [address] Assigned PCP 07/08/23 Nirmala Castrejon, RD [address] [place] [address] 84 [place], [place] [address] Registered Dietitian Dietitian, Registered 04/23/24 documented as of this encounter
--- OUTSIDE RECORDS SUMMARY | 2024-06-20 18:14 | XMS_ITS | Encounter Summary ---
Author Organization [place] Address [address] [place] [address] Care Team Providers Care Laborer Sawmill Name Role Phone Maureen Centeno MD Primary Care Provider + Maureen Centeno MD Unavailable + Maureen Centeno MD Unavailable +[phone] Kayy Allen RPH Unavailable Unavailable Alessandra Leblanc APRN [facility] Unavailable + Maureen Centeno MD Unavailable + Barb Sanders RP Unavailable Maureen Centeno MD Unavailable + Sissy Herrera RPH Unavailable [phone] Risa Mcdowell MD Unavailable [phone] Brandi Gutierrez MD Unavailable + Maureen Centeno MD Unavailable + Alejandro Mccarty MD Unavailable + Jr Chaparro PA-C Unavailable +1- Nirmala Castrejon RD Unavailable [phone] Reason for Visit * Reason Onset Date Comments Pt. Information/instruction 06/01/2012 Edwardo henry Encounter Details Date Type Department Care Team (Late st Contact Info) Description 06/01/2012 MyC Medical Advice [address], [address] [place] [address] [place] [address] [address] [address] Pt. Information/instruct ion (Update) Social History Tobacco Use Types Packs/Day Years Used Date Smoking Tobacco: Never Smokeless Tobacco: Never Alcohol Use Standard Drinks/Week Comments Yes 1.7 (1 standard drink = 0.6 oz p ure alcohol) occasionally Comments No Sex and Gender Information Value Date Recorded Sex Assigned at Female 10/15/2018 5:37 PM AIR MOTOR REPAIRER Legal Sex Female 3:33 AM AIR MOTOR REPAIRER Gender Identity Female 10/15/2018 5:37 PM AIR MOTOR REPAIRER Sexual Orientation Straight 10/15/2018 5: 37 PM AIR MOTOR REPAIRER documented as of this encounter Plan of Treatment Not on file documented as of this encounter Visit Diagnoses Not on filedocumented in this encounter Care Teams Laborer Sawmill Relationship Specialty Start [place] [address] [address] [address] PCP - General Family Practice 03/21/11 [place] [address] [address] [address] PCP - Assigned PCP 09/10/17 10/16/18 [place] [address] [address] [address] Assigned PCP 09/10/17 04/27/19 Kayy Allen [facility] [address] [place] [address] Pharmacist Pharmacist 02/28/19 07/21/20 Alessandra Leblanc APRN UPHOLSTERY MECHANIC [address] [place] [address] Assigned PCP 04/28/19 05/04/19 [place] [address] [facility] [place] [address] Assigned PCP 05/05/19 02/08/20 [facility] [address] [place] [address] Pharmacist Pharmacist 06/18/19 09/17/19 [place] [address] [facility] [place] [address] Assigned PCP 02/09/20 01/30/21 [facility] [address] [place] [address] Pharmacist Pharmacist 07/22/20 Risa Mcdowell MD [address] [facility] 100 [place] [address] Assigned OBGYN Provider 12/13/2006/03 Brandi Gutierrez MD [facility] [address] [place], [place] [address] Assigned PCP 01/31/21 06/19/21 [place] [address] [place] [address] Assigned PCP 06/20/21 01/07/22 [place] [address] [place] [address] Assigned PCP 01/08/22 07/07/23 Jr Chaparro PA-C [address] [place], [place] [address] Assigned PCP 07/08/23 Nirmala Castrejon, RD [address] [place] [address] 84 [place] [address] Registered Dietitian Dietitian, Registered 04/23/24 documented as of this encounter
--- OUTSIDE RECORDS SUMMARY | 2024-06-20 18:14 | XMS_ITS | Encounter Summary ---
Author Organization [place] Address [address] [place] [address] Care Team Providers Care Hypoid Gear Tester Name Role Phone Maureen Centeno MD Primary Care Provider + Maureen Centeno MD Unavailable + Maureen Centeno MD Unavailable +[phone] Kayy Allen RPH Unavailable Unavailable Alessandra Leblanc APRN [facility] Unavailable + Maureen Centeno MD Unavailable + Barb Sanders RP Unavailable Maureen Centeno MD Unavailable + Sissy Herrera RPH Unavailable [phone] Risa Mcdowell MD Unavailable [phone] Brandi Gutierrez MD Unavailable + Maureen Centeno MD Unavailable + Alejandro Mccarty MD Unavailable + Jr Chaparro PA-C Unavailable +1- Nirmala Castrejon RD Unavailable [phone] Encounter Details Date Type Department Care Team (Late st Contact Info) Description 03/22/[address], [address] [place] [address] [facility] Social History Tobacco Use Types Packs/Day Years Used Date Smoking Tobacco: Never Smokeless Tobacco: Never Alcohol Use Standard Drinks/Week Comments Yes 1.7 (1 standard drink = 0.6 oz p ure alcohol) occasionally Comments No Sex and Gender Information Value Date Recorded Sex Assigned at Female 10/15/2018 5:37 PM APPRAISER IRRIGATION TAX Legal Sex Female 3:33 AM APPRAISER IRRIGATION TAX Gender Identity Female 10/15/2018 5:37 PM APPRAISER IRRIGATION TAX Sexual Orientation Straight 10/15/2018 5: 37 PM APPRAISER IRRIGATION TAX documented as of this encounter Plan of Treatment Not on file documented as of this encounter Visit Diagnoses Not on filedocumented in this encounter Care Teams Hypoid Gear Tester Relationship Specialty [place] [address] [address]IAG[address] [address] PCP - General Family Practice 03/21/11 [place] [address] [address] [address] PCP - Assigned PCP 09/10/17 10/16/18 [place] [address] [address] [address] Assigned PCP 09/10/17 04/27/19 Kayy Allen RPH [address] [place] [address] Pharmacist Pharmacist 02/28/19 07/21/20 Alessandra Leblanc APRN WOODEN TANK ERECTOR [address] [address]IAGO 7155468 Assigned PCP 04/28/19 05/04/[address] [place] [address] [place] [address] Assigned PCP 05/05/19 02/08/20 Barb Sanders, [facility] [address] [place] [address] Pharmacist Pharmacist 06/18/19 09/17/19 [place] [address] [place] [address] Assigned PCP 02/09/20 01/30/21 Sissy Herrera [facility] [place] [address] [place] [address] Pharmacist Pharmacist 07/22/20 Risa Mcdowell MD [address] [facility], [facility] 100 [place] [address] Assigned OBGYN Provider 12/13/2006/03 Brandi Gutierrez MD [facility] [address] [place], [place] [address] Assigned PCP 01/31/21 06/19/21 [place] [address] [place] [address] Assigned PCP 06/20/21 01/07/22 [place] [address] [place] [address] Assigned PCP 01/08/22 07/07/23 Jr Chaparro PA-[place] [address] [place] [address] Assigned PCP 07/08/23 Nirmala Castrejon, RD [address] [place] [address] 84 [place], [place] [address] Registered Dietitian Dietitian, Registered 04/23/24 documented as of this encounter
--- OUTSIDE RECORDS SUMMARY | 2024-06-20 18:14 | XMS_ITS | Encounter Summary ---
Author Organization [place] Address [address] [place] [address] Care Team Providers Care Re Etcher Name Role Phone Maureen Centeno MD Primary Care Provider + Maureen Centeno MD Unavailable + Maureen Centeno MD Unavailable +[phone] Kayy Allen RPH Unavailable Unavailable Alessandra Leblanc APRN [facility] Unavailable + Maureen Centeno MD Unavailable + Barb Sanders RP Unavailable Maureen Centeno MD Unavailable + Sissy Herrera RPH Unavailable +[phone] Risa Mcdowell MD Unavailable [phone] Brandi Gutierrez MD Unavailable + Maureen Centeno MD Unavailable + Alejandro Mccarty MD Unavailable + Jr Chaparro PA-C Unavailable +1- Nirmala Castrejon RD Unavailable [phone] Encounter Details Date Type Department Care Team (Late st Contact Info) Description 04/05/[address], [address] [place] [address] [facility] Social History Tobacco Use Types Packs/Day Years Used Date Smoking Tobacco: Never Smokeless Tobacco: Never Alcohol Use Standard Drinks/Week Comments Yes 1.7 (1 standard drink = 0.6 oz p ure alcohol) occasionally Comments No Sex and Gender Information Value Date Recorded Sex Assigned at Female 10/15/2018 5:37 PM ANSWERING SERVICE OPERATOR Legal Sex Female 3:33 AM ANSWERING SERVICE OPERATOR Gender Identity Female 10/15/2018 5:37 PM ANSWERING SERVICE OPERATOR Sexual Orientation Straight 10/15/2018 5: 37 PM ANSWERING SERVICE OPERATOR documented as of this encounter Plan of Treatment Not on file documented as of this encounter Visit Diagnoses Not on filedocumented in this encounter Care Teams Re Etcher Relationship Specialty Start [place] [address] [place] [address] PCP - General Family Practice 03/21/11 [place] [address] [place] [address] PCP - Assigned PCP 09/10/17 10/16/18 [place] [address] [place] [address] Assigned PCP 09/10/17 04/27/19 Kayy Allen RPH [address] [place] [address] Pharmacist Pharmacist 02/28/19 07/21/20 Alessandra Leblanc APRN INSPECTOR TYPE 93446 [place] S[place] [id number] Assigned PCP 04/28/19 05/04/19 [place] [address] [place] [address] Assigned PCP 05/05/19 02/08/20 Barb Sanders, [facility] [address] [place] [address] Pharmacist Pharmacist 06/18/19 09/17/19 [place] [address] [place] [address] Assigned PCP 02/09/20 01/30/21 Sissy Herrera [facility] [address] [place] [address] Pharmacist Pharmacist 07/22/20 Risa Mcdowell MD [address] [facility], [facility] [address] [place] [address] Assigned OBGYN Provider 12/13/2006/03 Brandi Gutierrez MD [facility]IMARY [facility] [address] [place], [place] [address] Assigned PCP 01/31/21 06/19/21 [place] [address] [place] [address] Assigned PCP 06/20/21 01/07/22 [place] [address] [place] [address] Assigned PCP 01/08/22 07/07/23 Jr Chaparro PA-[place] [address] [place] [address] Assigned PCP 07/08/23 Nirmala Castrejon, RD [address] [place] [address] 84 [place], [place] [address] Registered Dietitian Dietitian, Registered 04/23/24 documented as of this encounter
--- OUTSIDE RECORDS SUMMARY | 2024-06-20 18:14 | XMS_ITS | Encounter Summary ---
Author Organization [place] Address [address] [place] [address] Care Team Providers Care Trip Motor Operator Name Role Phone Maureen Centeno MD Primary Care Provider + Maureen Centeno MD Unavailable + Maureen Centeno MD Unavailable +[phone] Kayy Allen RPH Unavailable Unavailable Alessandra Leblanc APRN [facility] Unavailable + Maureen Centeno MD Unavailable + Barb Sanders RP Unavailable +[phone] Maureen Centeno MD Unavailable + Sissy Herrera RPH Unavailable +[phone] Risa Mcdowell MD Unavailable [phone] Brandi Gutierrez MD Unavailable + Maureen Centeno MD Unavailable + Alejandro Mccarty MD Unavailable + Jr Chaparro PA-C Unavailable +1- Nirmala Castrejon RD Unavailable [phone] Reason for Visit * Reason Onset Date Comments Refill Request 05/16/2011 Vyvanase Encounter Details Date Type Department Care Team (Late st Contact Info) Description 05/16/2011 MyC Medical Advice [address], [address] [place] [address] [place] [address] [place] [address] Refill Request (Vyvanase) Social History Tobacco Use Types Packs/Day Years Used Date Smoking Tobacco: Never Smokeless Tobacco: Never Alcohol Use Standard Drinks/Week Comments Yes 1.7 (1 standard drink = 0.6 oz p ure alcohol) occasionally Comments No Sex and Gender Information Value Date Recorded Sex Assigned at Female 10/15/2018 5:37 PM ROCKET MOTOR MECHANIC Legal Sex Female 3:33 AM ROCKET MOTOR MECHANIC Gender Identity Female 10/15/2018 5:37 PM ROCKET MOTOR MECHANIC Sexual Orientation Straight 10/15/2018 5: 37 PM ROCKET MOTOR MECHANIC documented as of this encounter Plan of Treatment Not on file documented as of this encounter Visit Diagnoses Diagnosis ATTN DEFICIT W HYPERACT- Primary Attention deficit disorder with hyperactivity documented in this encounter Care Teams Trip Motor Operator Relationship Specialty Start [place] [address] [place] [address] PCP - General Family Practice 03/21/11 [place] [address] [place] [address] PCP - Assigned PCP 09/10/17 10/16/18 [place] [address] [place] [address] Assigned PCP 09/10/17 04/27/19 [facility] [address] [place] [address] Pharmacist Pharmacist 02/28/19 07/21/20 Alessandra Leblanc APRN REWINDER OPERATOR [address] [place] [address] Assigned PCP 04/28/19 05/04/19 [place] [address] [place] [address] Assigned PCP 05/05/19 02/08/20 [facility] [address] [place] [address] Pharmacist Pharmacist 06/18/19 09/17/[address] [place] [address] [place] [address] Assigned PCP 02/09/20 01/30/21 [facility] [address] [place] [address] Pharmacist Pharmacist 07/22/20 Risa Mcdowell MD [address] [facility] 100 [place] [address] Assigned OBGYN Provider 12/13/2006/03 Brandi Gutierrez MD PRIMARY [facility]NT [address] [place] [address] Assigned PCP 01/31/21 06/19/21 [place] [address] [place] [place] [address] Assigned PCP 06/20/21 01/07/22 [place] [address] [place] [id number] Assigned PCP 01/08/22 07/07/23 Jr Chaparro PA-C [address] [place] [id number] Assigned PCP 07/08/23 Nirmala Castrejon, RD [address] [place] [address] 84 [place], [place] [address] Registered Dietitian Dietitian, Registered 04/23/24 documented as of this encounter
--- OUTSIDE RECORDS SUMMARY | 2024-06-20 18:14 | XMS_ITS | Encounter Summary ---
Author Organization [place] Address [address] [place] [address] Care Team Providers Care Potato Inspector Name Role Phone Maureen Centeno MD Primary Care Provider + Maureen Centeno MD Unavailable + Maureen Centeno MD Unavailable +[phone] Kayy Allen RPH Unavailable Unavailable Alessandra Leblanc APRN [facility] Unavailable + Maureen Centeno MD Unavailable + Barb Sanders RP Unavailable Maureen Centeno MD Unavailable + Sissy Herrera RPH Unavailable +[phone] Risa Mcdowell MD Unavailable [phone] Brandi Gutierrez MD Unavailable + Maureen Centeno MD Unavailable + Alejandro Mccarty MD Unavailable + Jr Chaparro PA-C Unavailable +1- Nirmala aCstrejon RD Unavailable [phone] Reason for Visit * Reason Onset Date Comments Medication Request 06/10/2012 Yeast infecti on Encounter Details Date Type Department Care Team (Late st Contact Info) Description 06/10/2012 MyC Medical Advice [address], [address] [place] [address] [place] [address] [place] [address] Medication Request (Yeast infection) Social History Tobacco Use Types Packs/Day Years Used Date Smoking Tobacco: Never Smokeless Tobacco: Never Alcohol Use Standard Drinks/Week Comments Yes 1.7 (1 standard drink = 0.6 oz p ure alcohol) occasionally Comments No Sex and Gender Information Value Date Recorded Sex Assigned at Female 10/15/2018 5:37 PM TRAIN ATTENDANT Legal Sex Female 3:33 AM TRAIN ATTENDANT Gender Identity Female 10/15/2018 5:37 PM TRAIN ATTENDANT Sexual Orientation Straight 10/15/2018 5: 37 PM TRAIN ATTENDANT documented as of this encounter Miscellaneous Notes * Telephone Encounter - Brie Solitario - 06/14/2012 7:39 AM CDT Medication approved per standing orders. Brie Solitario RN * Telephone Encounter - Brie Solitario - 06/12/2012 3:55 PM CDT LMOM for patient to call clinic back with what pharmacy she would like rx sent to. Brie Solitario RN documented in this encounter Plan of Treatment Not on file documented as of this encounter Visit Diagnoses Diagnosis Vaginal candidiasis- Primary Candidiasis of vulva and vagina documented in this encounter Care Teams Potato Inspector Relationship Specialty Start [place] [address] [place] [address] PCP - General Family Practice 8/8/11 [place] [address] [place] [address] PCP - Assigned PCP 09/10/17 10/16/18 [place] [address] [place] [address] Assigned PCP 09/10/17 04/27/19 Kayy Allen, [facility] [address] [place] [address] Pharmacist Pharmacist 02/28/19 07/21/20 Alessandra Leblanc APRN [facility] [address] [place] [address] Assigned PCP 04/28/19 05/04/19 [place] [address] [place] [address] Assigned PCP 05/05/19 02/08/20 Barb Sanders, [facility] [address] [facility] [place] [address] Pharmacist Pharmacist 06/18/19 09/17/19 [place] [address] [place] [address] Assigned PCP 02/09/20 01/30/21 [facility] [address] [place] [address] Pharmacist Pharmacist 07/22/20 Risa Mcdowell MD [address] [place], [place] [address] Assigned OBGYN Provider 12/13/2006/03 Brandi Gutierrez MD PR[facility]NT [address] [place] [address] Assigned PCP 01/31/21 06/19/21 [place] [address] [place] [address] Assigned PCP 06/20/21 01/07/22 [place] [address] [address] [place], [place] [address] Assigned PCP 01/08/22 07/07/23 Jr Chaparro PA-[place] [address] [place] [address] Assigned PCP 07/08/23 Nirmala Castrejon, RD [address] [place] [address] 84 [place] [address] Registered Dietitian Dietitian, Registered 04/23/24 documented as of this encounter
--- OUTSIDE RECORDS SUMMARY | 2024-06-20 18:14 | XMS_ITS | Encounter Summary ---
Author Organization [place] Address [address] [place] [address] Care Team Providers Care Meat Wrapper Name Role Phone Maureen Centeno MD Primary Care Provider + Maureen Centeno MD Unavailable + Maureen Centeno MD Unavailable +26 Kayy Allen RPH Unavailable Unavailable Alessandra Leblanc APRN [facility] Unavailable + Maureen Centeno MD Unavailable + Barb Sanders RP Unavailable Maureen Centeno MD Unavailable + Sissy Herrera RPH Unavailable [phone] Risa Mcdowell MD Unavailable [phone] Brandi Gutierrez MD Unavailable + Maureen Centeno MD Unavailable + Alejandro Mccarty MD Unavailable + Jr Chaparro PA-C Unavailable +1- Nirmala Castrejon RD Unavailable [phone] Reason for Visit * Reason Onset Date Comments MyChart Communication 07/06/2011 Encounter Details Date Type Department Care Team (Late st Contact Info) Description 07/06/2011 MyC Medical Advice [address], [address] [place] [phone] [place] [address] [place] [address] MyChart Communication Social History Tobacco Use Types Packs/Day Years Used Date Smoking Tobacco: Never Smokeless Tobacco: Never Alcohol Use Standard Drinks/Week Comments Yes 1.7 (1 standard drink = 0.6 oz p ure alcohol) occasionally Comments No Sex and Gender Information Value Date Recorded Sex Assigned at Female 10/15/2018 5:37 PM CAD CAM PROGRAMMER Legal Sex Female 3:33 AM CAD CAM PROGRAMMER Gender Identity Female 10/15/2018 5:37 PM CAD CAM PROGRAMMER Sexual Orientation Straight 10/15/2018 5: 37 PM CAD CAM PROGRAMMER documented as of this encounter Miscellaneous Notes * Telephone Encounter - Sissy Porras - 07/06/2011 1:29 PM CST FYI. CAM PROGRAMMER documented in this encounter Plan of Treatment Not on file documented as of this encounter Visit Diagnoses Not on filedocumented in this encounter Care Teams Meat Wrapper Relationship Specialty Start [place] [address] [place] [address] PCP - General Family Practice 03/21/11 [place] [address] [place] [address] PCP - Assigned PCP 09/10/17 10/16/18 [place] [address] [place] [address] Assigned PCP 09/10/17 04/27/19 [facility] [address] [place] [address] Pharmacist Pharmacist 02/28/19 07/21/20 Alessandra Leblanc APRN [facility] [address] [place] [address] Assigned PCP 04/28/19 05/04/19 [place] [address] [place] [address] Assigned PCP 05/05/19 02/08/20 [facility] [address] [place] [address] Pharmacist Pharmacist 06/18/19 09/17/[address] [place] [address] [place] [address] Assigned PCP 02/09/20 01/30/21 [facility] [address] [place] [address] Pharmacist Pharmacist 07/22/20 Risa Mcdowell MD [address] [address] Assigned OBGYN Provider 12/13/2006/03 Brandi Gutierrez MD PRIMARY ENT [address] [place], [place] [address] Assigned PCP 01/31/21 06/19/21 [place] [address] [address] [place], [place] 04146[address] Assigned PCP 06/20/21 01/07/22 [place] [address] [place], [place] [address] Assigned PCP 01/08/22 07/07/23 Jr Chaparro PA-C [address] [place], [place] [address] Assigned PCP 07/08/23 Nirmala Castrejon, RD [address] [place] [address] 84 [place], [place] [address] Registered Dietitian Dietitian, Registered 04/23/24 documented as of this encounter
--- OUTSIDE RECORDS SUMMARY | 2024-06-20 18:14 | XMS_ITS | Encounter Summary ---
Author Organization [place] Address [address] [place] [address] Care Team Providers Care Finance Business Manager Name Role Phone Louisa Burgos MD Primary Care Provider + Maureen Centeno MD Primary Care Provider Maureen Centeno MD Unavailable [phone] Maureen Centeno MD Unavailable [phone] Kayy Allen RP Unavailable Unavailable Alessandra Leblanc APRN [employer] [facility] Unavailable + Maureen Centeno MD Unavailable [phone] Barb Sanders H Unavailable Maureen Centeno MD Unavailable Sissy Herrera [facility] Unavailable +[phone] Risa Mcdowell MD Unavailable [phone] Brandi Gutierrez MD Unavailable + Maureen Centeno MD Unavailable [phone] Alejandro Mccarty MD Unavailable Jr Chaparro PA-C Unavailable [phone] Unavailable [phone] Reason for Visit * Reason Onset Date Comments MyChart Communication 04/15/2010 Encounter Details Date Type Department Care Team (Latest Contact Info) Description 04/15/2010 MyC Medical Advice [address], [address] [place] [address] Louisa Burgos MD [address] [place] [address] [address] [place] [address] MyChart Communication Social History Tobacco Use Types Packs/Day Years Used Date Smoking Tobacco: Never Alcohol Use Standard Drinks/Week Comments Yes 1.7 (1 standard drink = 0.6 oz p ure alcohol) occasionally Comments No Sex and Gender Information Value Date Recorded Sex Assigned at Female 10/15/2018 5:37 PM CIVIL MANAGER Legal Sex Female 3:33 AM CIVIL MANAGER Gender Identity Female 10/15/2018 5:37 PM CIVIL MANAGER Sexual Orientation Straight 10/15/2018 5: 37 PM CIVIL MANAGER documented as of this encounter Plan of Treatment Not on file documented as of this encounter Visit Diagnoses Not on filedocumented in this encounter Care Teams Finance Business Manager Relationship Specialty Start Date End Date Louisa Burgos MD PCP - General Internal Medicine 12/31/09 03/20/11 [place] [address] [place] [address] PCP - General Family Practice 03/21/11 [place] [address] [place] [address] PCP - Assigned PCP 09/10/17 10/16/18 [place] [address] [place] [address] Assigned PCP 09/10/17 04/27/19 Kayy Allen [facility] [address] [place] [address] Pharmacist Pharmacist 02/28/19 07/21/20 Alessandra Leblanc APRN [facility] [address] [place] [address] Assigned PCP 04/28/19 05/04/[address] [place] [address] [place] [address] Assigned PCP 05/05/19 02/08/20 [facility] [address] [place] [address] Pharmacist Pharmacist 06/18/19 09/17/[address] [place] [address] [place] [address] Assigned PCP 02/09/20 01/30/21 [facility] [address] [place] [address] Pharmacist Pharmacist 07/22/20 Risa Mcdowell MD [address] [address] Assigned OBGYN Provider 12/13/2006/03 Brandi Gutierrez MD PRIMARY ENT [address] [place], [place] [address] Assigned PCP 01/31/21 06/19/21 [place] [address] [place] [address] Assigned PCP 06/20/21 01/07/22 [place] [address] [place], [place] 8[address] Assigned PCP 01/08/22 07/07/23 Jr Chaparro PA-C [address] [place], [place] 3376[address] Assigned PCP 07/08/23 Nirmala Castrejon, RD [address] [place] [address] 84 [place], [place] [address] Registered Dietitian Dietitian, Registered 04/23/24 documented as of this encounter
--- OUTSIDE RECORDS SUMMARY | 2024-06-20 18:14 | XMS_ITS | Encounter Summary ---
Author Organization [place] Address [address] [place] [address] Care Team Providers Care Thermodynamic Physicist Name Role Phone Maureen Centeno MD Primary Care Provider + Maureen Centeno MD Unavailable + Maureen Centeno MD Unavailable +[phone] Kayy Allen RPH Unavailable Unavailable Alessandra Leblanc APRN [facility] Unavailable + Maureen Centeno MD Unavailable + Barb Sanders RP Unavailable Maureen Centeno MD Unavailable + Sissy Herrera RPH Unavailable +[phone] Risa Mcdowell MD Unavailable [phone] Brandi Gutierrez MD Unavailable + Maureen Centeno MD Unavailable + Alejandro Mccarty MD Unavailable + Jr Chaparro PA-C Unavailable +1- Nirmala Castrejon RD Unavailable [phone] Encounter Details Date Type Department Care Team (Late st Contact Info) Description 10/02/2013 MyC Medical Advice [address], [address] [place] [address] [place] [address] [place] [address] Social History Tobacco Use Types Packs/Day Years Used Date Smoking Tobacco: Never Smokeless Tobacco: Never Alcohol Use Standard Drinks/Week Comments Yes 1.7 (1 standard drink = 0.6 oz p ure alcohol) occasionally Comments No Sex and Gender Information Value Date Recorded Sex Assigned at Female 10/15/2018 5:37 PM BUILD AUTOMATION ENGINEER Legal Sex Female 3:33 AM BUILD AUTOMATION ENGINEER Gender Identity Female 10/15/2018 5:37 PM BUILD AUTOMATION ENGINEER Sexual Orientation Straight 10/15/2018 5: 37 PM BUILD AUTOMATION ENGINEER documented as of this encounter Plan of Treatment Not on file documented as of this encounter Visit Diagnoses Not on filedocumented in this encounter Care Teams Thermodynamic Physicist Relationship Specialty Start [place] [address] [place] [address] PCP - General Family Practice 03/21/11 [place] [address] [place] [address] PCP - Assigned PCP 09/10/17 10/16/18 [place] [address] [place] [address] Assigned PCP 09/10/17 04/27/19 Kayy Allen [facility] [address] [place] [address] Pharmacist Pharmacist 02/28/19 07/21/20 Alessandra Leblanc APRN DIRECTOR OF PROCUREMENT [address] [place] [address] Assigned PCP 04/28/19 05/04/19 [place] [address] [place] [address] Assigned PCP 05/05/19 02/08/20 Barb Sanders, [facility] [address] [place] [place], [place] [address] Pharmacist Pharmacist 06/18/19 09/17/[address] [place] [address] [place] [address] Assigned PCP 02/09/20 01/30/21 [facility] [address] [place], [place] [address] Pharmacist Pharmacist 07/22/20 Risa Mcdowell MD [address] [facility] [address] [place] [address] Assigned OBGYN Provider 12/13/2006/03 Brandi Gutierrez MD PRIMARY ENT [address] [place] [address] Assigned PCP 01/31/21 06/19/21 [place] [address] [place], [place] 8[address]6968 Assigned PCP 06/20/21 01/07/22 [place] [address] [place] 1080[address] Assigned PCP 01/08/22 07/07/23 Jr Chaparro PA-C [address]99[address] [place] [address] Assigned PCP 07/08/23 Nirmala Castrejon, RD [address] [place] [address] 84 [place], [place] [address] Registered Dietitian Dietitian, Registered 04/23/24 documented as of this encounter
--- OUTSIDE RECORDS SUMMARY | 2024-06-20 18:14 | XMS_ITS | Encounter Summary ---
Author Organization [facility] Address [address] [place] [address] Care Team Providers Care Foreign Student Adviser Teacher Name Role Phone Maureen Centeno MD Primary Care Provider + Maureen Centeno MD Unavailable + Maureen Centeno MD Unavailable +[phone] Kayy Allen RPH Unavailable Unavailable Alessandra Leblanc APRN [facility] Unavailable + Maureen Centeno MD Unavailable + Barb Sanders RP Unavailable Maureen Centeno MD Unavailable + Sissy Herrera RPH Unavailable +[phone] Risa Mcdowell MD Unavailable +[phone] Brandi Gutierrez MD Unavailable + Maureen Centeno MD Unavailable + Alejandro Mccarty MD Unavailable + Jr Chaparro PA-C Unavailable +1- Nirmala Castrejon RD Unavailable +[phone] Reason for Visit * Reason Onset Date Comments Medication Request 05/02/2011 Vyvanase Encounter Details Date Type Department Care Team (Late st Contact Info) Description 05/02/2011 MyC Medical Advice [address], [address] [place] [phone] [place] [address] [place] SANTIAGO [address] Medication Request (Vyvanase) Social History Tobacco Use Types Packs/Day Years Used Date Smoking Tobacco: Never Smokeless Tobacco: Never Alcohol Use Standard Drinks/Week Comments Yes 1.7 (1 standard drink = 0.6 oz p ure alcohol) occasionally Comments No Sex and Gender Information Value Date Recorded Sex Assigned at Female 10/15/2018 5:37 PM STATE EDITOR Legal Sex Female 3:33 AM STATE EDITOR Gender Identity Female 10/15/2018 5:37 PM STATE EDITOR Sexual Orientation Straight 10/15/2018 5: 37 PM STATE EDITOR documented as of this encounter Plan of Treatment Not on file documented as of this encounter Visit Diagnoses Not on filedocumented in this encounter Care Teams Foreign Student Adviser Teacher Relationship Specialty Start [place] [address] [place] SANTIGAO [address] PCP - General Family Practice 03/21/11 [place] [address] [place] SANTIAGO [address] PCP - Assigned PCP 09/10/17 10/16/18 [place] [address] [place] SANTIAGO [address] Assigned PCP 09/10/17 04/27/19 Kayy Allen [facility] [address] [place] [address] Pharmacist Pharmacist 02/28/19 07/21/20 Alessandra Leblanc APRN S[employer] [address] [place] [address] Assigned PCP 04/28/19 05/04/19 [place] [address] [place] [address] Assigned PCP 05/05/19 02/08/20 Barb Sanders, [facility] [address] [facility] [place] [address] Pharmacist Pharmacist 06/18/19 09/17/19 [place] [address] [place] [address] Assigned PCP 02/09/20 01/30/21 [facility] [address] [place] [address] Pharmacist Pharmacist 07/22/20 Risa Mcdowell MD [address] [facility], [facility] 100 [place] [address] Assigned OBGYN Provider 12/13/2006/03 Brandi Gutierrez MD [facility] [address] [place], [place] [address] Assigned PCP 01/31/21 06/19/21 [place] [address] [place] [address] Assigned PCP 06/20/21 01/07/22 [place] [address] [place] [address] Assigned PCP 01/08/22 07/07/23 Jr Chaparro PA-[place] [address] [place] [address] Assigned PCP 07/08/23 Nirmala Castrejon, RD [address] [place] [address] [address] [place] [address] Registered Dietitian Dietitian, Registered 04/23/24 documented as of this encounter
--- OUTSIDE RECORDS SUMMARY | 2024-06-20 18:14 | XMS_ITS | Encounter Summary ---
Author Organization [facility] Address [address] [place] [address] Care Team Providers Care Sample Box Maker Name Role Phone Maureen Centeno MD Primary Care Provider + Maureen Centeno MD Unavailable + Maureen Centeno MD Unavailable +58 Kayy Allen RPH Unavailable Unavailable Alessandra Leblanc APRN [facility] Unavailable + Maureen Centeno MD Unavailable + Barb Sanders RP Unavailable Maureen Centeno MD Unavailable + Sissy Herrera RPH Unavailable +[phone] Risa Mcdowell MD Unavailable +[phone] Brandi Gutierrez MD Unavailable + Maureen Centeno MD Unavailable + Alejandro Mccarty MD Unavailable + Jr Chaparro PA-C Unavailable +1- Nirmala Castrejon Unavailable +[phone] Reason for Visit * Reason Onset Date Comments Refill Request 06/30/2011 Encounter Details Date Type Department Care Team (Late st Contact Info) Description 06/30/2011 MyC Refill [place] [address] [address] [facility], [address] LAK[place]HA Hernandez [phone] [place]a Burgos MD [address] [place] [address] [address] [place] [address] Refill Request Social History Tobacco Use Types Packs/Day Years Used Date Smoking Tobacco: Never Smokeless Tobacco: Never Alcohol Use Standard Drinks/Week Comments Yes 1.7 (1 standard drink = 0.6 oz p ure alcohol) occasionally Comments No Sex and Gender Information Value Date Recorded Sex Assigned at Female 10/15/2018 5:37 PM PROGRAM SCHEDULE CLERK Legal Sex Female 3:33 AM PROGRAM SCHEDULE CLERK Gender Identity Female 10/15/2018 5:37 PM PROGRAM SCHEDULE CLERK Sexual Orientation Straight 10/15/2018 5: 37 PM PROGRAM SCHEDULE CLERK documented as of this encounter Miscellaneous Notes * Telephone Encounter - Maryellen Duran - 07/01/2011 10:32 AM CST Called out to pt. No answer, Will send [email or web address] message to have pt call us about refill request for Batrim. Maryellen Duran RN RAM SCHEDULE CLERK * Telephone Encounter - Maryellen Duran - 07/01/2011 10:29 AM CSTMessage from [employer]: Original authorizing provider: [place] Chan would like a refill of the following medications: sulfamethoxazole-trimethoprim (BACTRIM DS) 800-160 MG per tablet [[place]isa Burgos] Preferred pharmacy: [facility] Comment: RAM SCHEDULE CLERK documented in this encounter Plan of Treatment Not on file documented as of this encounter Visit Diagnoses Diagnosis Recurrent UTI Urinary tract infection, site not specified documented in this encounter Care Teams Sample Box Maker Relationship Specialty Start Date End Date Jacobo, [place] [address] [place] [address] PCP - General Family Practice 03/21/11 [place] [address] [place] [address] PCP - Assigned PCP 09/10/17 10/16/18 [place] [address] [place] [address] Assigned PCP 09/10/17 04/27/19 Kayy Allen, [facility] [address] [place] [address] Pharmacist Pharmacist 02/28/19 07/21/20 Alessandra Leblanc APRN [facility] [address] [place] [address] Assigned PCP 04/28/19 05/04/19 [place] [address] [place] [address] Assigned PCP 05/05/19 02/08/20 Barb Sanders, [facility] [address] [place] [address] Pharmacist Pharmacist 06/18/19 09/17/19 [place] [address] [address] [place] [address] Assigned PCP 02/09/20 01/30/21 [facility] [address] [place] [address] Pharmacist Pharmacist 07/22/20 Risa Mcdowell MD [address] [place] [address] Assigned OBGYN Provider 12/13/2006/03 Brandi Gutierrez MD [facility] [address] [place], [place] [id number] Assigned PCP 01/31/21 06/19/21 [place] [address] [place], [place] [address]66[address] Assigned PCP 06/20/21 01/07/22 [place] [address] [place] [address] Assigned PCP 01/08/22 07/07/23 Jr Chaparro PA-C [address] [place], [place] 27[address] Assigned PCP 07/08/23 Nirmala Castrejon, RD [address] [facility] [address] [place], [place] [address] Registered Dietitian Dietitian, Registered 04/23/24 documented as of this encounter
--- OUTSIDE RECORDS SUMMARY | 2024-06-20 18:14 | XMS_ITS | Encounter Summary ---
Author Organization [facility] Address [address] [place] [address] Care Team Providers Care Leave Manager Name Role Phone Maureen Centeno MD Primary Care Provider + Maureen Centeno MD Unavailable + Maureen Centeno MD Unavailable +69 Kayy Allen RPH Unavailable Unavailable Alessandra Leblanc APRN [facility] Unavailable + Maureen Centeno MD Unavailable + Barb Sanders RP Unavailable [phone] Maureen Centeno MD Unavailable + Sissy Herrera RPH Unavailable +[phone] Risa Mcdowell MD Unavailable +[phone] Brandi Gutierrez MD Unavailable + Maureen Centeno MD Unavailable + Alejandro Mccarty MD Unavailable + Jr Chaparro PA-C Unavailable +1- Nirmala Castrejon RD Unavailable [phone] Reason for Visit * Reason Onset Date Comments Medication Question 12/18/2012 Iron Encounter Details Date Type Department Care Team (Late st Contact Info) Description 12/18/2012 MyC Medical Advice [address], [address] [place] [phone] [place] [address] [place] SANTIAGO [address] Medication Question (Iron) Social History Tobacco Use Types Packs/Day Years Used Date Smoking Tobacco: Never Smokeless Tobacco: Never Alcohol Use Standard Drinks/Week Comments Yes 1.7 (1 standard drink = 0.6 oz p ure alcohol) occasionally Comments No Sex and Gender Information Value Date Recorded Sex Assigned at Female 10/15/2018 5:37 PM GENETIC ENGINEER Legal Sex Female 3:33 AM GENETIC ENGINEER Gender Identity Female 10/15/2018 5:37 PM GENETIC ENGINEER Sexual Orientation Straight 10/15/2018 5: 37 PM GENETIC ENGINEER documented as of this encounter Plan of Treatment Not on file documented as of this encounter Visit Diagnoses Not on filedocumented in this encounter Care Teams Leave Manager Relationship Specialty [place] [address] [place] SANTIAGO [address] PCP - General Family Practice 03/21/11 [place] [address] [place] S[place] [address] PCP - Assigned PCP 09/10/17 10/16/18 [place] [address] [place] S[place] [address] Assigned PCP 09/10/17 04/27/19 Kayy Allen [facility] [address] [place] [address] Pharmacist Pharmacist 02/28/19 07/21/20 Alessandra Leblanc APRN BIOINFORMATICS TECHNICIAN [address] [place] [address] Assigned PCP 04/28/19 05/04/19 [place] [address] [place] [address] Assigned PCP 05/05/19 02/08/20 Barb Sanders [facility] 30[address] [place] [address] Pharmacist Pharmacist 06/18/19 09/17/19 [place] [address] [place] [address] Assigned PCP 02/09/20 01/30/21 [facility] [address] [place] [address] Pharmacist Pharmacist 07/22/20 Risa Mcdowell MD [address] [facility], [facility] 100 [place] [address] Assigned OBGYN Provider 12/13/2006/03 Brandi Gutierrez MD [facility] [address] [place], [place] [address] Assigned PCP 01/31/21 06/19/21 [place] [address] [address] [place], [place] [address] Assigned PCP 06/20/21 01/07/22 [place] [address] [address] [place], [place] [id number] Assigned PCP 01/08/22 07/07/23 Jr Chaparro PA-C [address] [place], [place] [address]1600[address] Assigned PCP 07/08/23 Nirmala Castrejon, RD [address] [place] [address] 84 [place] [address] Registered Dietitian Dietitian, Registered 04/23/24 documented as of this encounter
--- OUTSIDE RECORDS SUMMARY | 2024-06-20 18:14 | XMS_ITS | Encounter Summary ---
Author Organization [facility] Address [address] [place] [address] Care Team Providers Care Chef Teacher Name Role Phone Maureen Centeno MD Primary Care Provider + Maureen Centeno MD Unavailable + Maureen Centeno MD Unavailable +15 Kayy Allen RPH Unavailable Unavailable Alessandra Leblanc APRN [facility] Unavailable + Maureen Centeno MD Unavailable + Barb Sanders RP Unavailable [phone] Maureen Centeno MD Unavailable + Sissy Herrera RPH Unavailable +[phone] Risa Mcdowell MD Unavailable [phone] Brandi Gutierrez MD Unavailable + Maureen Centeno MD Unavailable + Alejandro Mccarty MD Unavailable + Jr Chaparro PA-C Unavailable +1- Nirmala Castrejon RD Unavailable +[phone] Reason for Visit * Reason Onset Date Comments Medication Question 03/22/2012 Pristiq Encounter Details Date Type Department Care Team (Late st Contact Info) Description 03/22/2012 MyC Medical Advice [address], [address] [place] [phone] [place] [address] [place] SANTIAGO [address] Medication Question (Pristiq) Social History Tobacco Use Types Packs/Day Years Used Date Smoking Tobacco: Never Smokeless Tobacco: Never Alcohol Use Standard Drinks/Week Comments Yes 1.7 (1 standard drink = 0.6 oz p ure alcohol) occasionally Comments No Sex and Gender Information Value Date Recorded Sex Assigned at Female 10/15/2018 5:37 PM WINE CONSULTANT Legal Sex Female 3:33 AM WINE CONSULTANT Gender Identity Female 10/15/2018 5:37 PM WINE CONSULTANT Sexual Orientation Straight 10/15/2018 5: 37 PM WINE CONSULTANT documented as of this encounter Miscellaneous Notes * Telephone Encounter - Maureen Centeno MD - 03/26/2012 10:27 AM CDT vyvance was refilled per chart, and not sure if she is asking for the 50mg or not of Pristiq, ok togo to the 50mg, and make appt if having back pain documented in this encounter Plan of Treatment Not on file documented as of this encounter Visit Diagnoses Not on filedocumented in this encounter Care Teams Chef Teacher Relationship Specialty [place] [address] [place] SANTIAGO [address] PCP - General Family Practice 03/21/11 [place] [address] [place] SANTIAGO [address] PCP - Assigned PCP 09/10/17 10/16/18 [place] [address] [place] [address] Assigned PCP 09/10/17 04/27/19 Kayy Allen [facility] [address] [place] [address] Pharmacist Pharmacist 02/28/19 07/21/20 Alessandra Leblanc APRN [facility] [address] [place] [address] Assigned PCP 04/28/19 05/04/19 [place] [address] [address] [facility] [place] [address] Assigned PCP 05/05/19 02/08/20 Barb Sanders [facility] [address] [place] [address] Pharmacist Pharmacist 06/18/19 09/17/19 [place] [address] [facility] [place] [address] Assigned PCP 02/09/20 01/30/21 Sissy Herrera [facility] [address] [place], [place] [address] Pharmacist Pharmacist 07/22/20 Risa Mcdowell MD [address] [facility], [address] 899987 Assigned OBGYN Provider 12/13/2006/03 Brandi Gutierrez MD [facility] [address] [place] [address] Assigned PCP 01/31/21 06/19/21 [place] [address] [address] [place] 85[address] Assigned PCP 06/20/21 01/07/22 [place] [address] [place], [place] 1443268 Assigned PCP 01/08/22 07/07/23 Jr Chaparro PA-C [address] [place], [place] 68835[address] Assigned PCP 07/08/23 Nirmala Castrejon, RD [address] [place] [address] 84 [place] [address] Registered Dietitian Dietitian, Registered 04/23/24 documented as of this encounter
--- OUTSIDE RECORDS SUMMARY | 2024-06-20 18:14 | XMS_ITS | Encounter Summary ---
Author Organization [facility] Address [address] [place] [address] Care Team Providers Care Field Education Director Name Role Phone Maureen Centeno MD Primary Care Provider + Maureen Centeno MD Unavailable + Maureen Centeno MD Unavailable +10 Kayy Allen RPH Unavailable Unavailable Alessandra Leblanc APRN [facility] Unavailable + Maureen Centeno MD Unavailable + Barb Sanders RP Unavailable +[phone] Maureen Centeno MD Unavailable + Sissy Herrera RPH Unavailable +[phone] Risa Mcdowell MD Unavailable [phone] Brandi Gutierrez MD Unavailable + Maureen Centeno MD Unavailable + Alejandro Mccarty MD Unavailable + Jr Chaparro PA-C Unavailable +1- Niramla Castrejon RD Unavailable [phone] Reason for Visit * Reason Onset Date Comments Medication Request 05/02/2011 Vyvanase Encounter Details Date Type Department Care Team (Late st Contact Info) Description 05/02/2011 MyC Medical Advice [address], [address] [place] [address] [place] [address] [place] SANTIAGO [address] Medication Request (Vyvanase) Social History Tobacco Use Types Packs/Day Years Used Date Smoking Tobacco: Never Smokeless Tobacco: Never Alcohol Use Standard Drinks/Week Comments Yes 1.7 (1 standard drink = 0.6 oz p ure alcohol) occasionally Comments No Sex and Gender Information Value Date Recorded Sex Assigned at Female 10/15/2018 5:37 PM SUPERVISOR CIGAR MAKING MACHINE Legal Sex Female 3:33 AM SUPERVISOR CIGAR MAKING MACHINE Gender Identity Female 10/15/2018 5:37 PM SUPERVISOR CIGAR MAKING MACHINE Sexual Orientation Straight 10/15/2018 5: 37 PM SUPERVISOR CIGAR MAKING MACHINE documented as of this encounter Plan of Treatment Not on file documented as of this encounter Visit Diagnoses Diagnosis ATTN DEFICIT W HYPERACT- Primary Attention deficit disorder with hyperactivity documented in this encounter Care Teams Field Education Director Relationship Specialty Start [place] [address] [place] SANTIAGO [address] PCP - General Family Practice 03/21/11 [place] [address] [place] SANTIAG[place] [address] PCP - Assigned PCP 09/10/17 10/16/18 [place] [address] [place] S[place]IAG[place] [address] Assigned PCP 09/10/17 04/27/19 Kayy Allen RPH [address] [place] [address] Pharmacist Pharmacist 02/28/19 07/21/20 Alessandra Leblanc APRN [facility] [address] [place] [address] Assigned PCP 04/28/19 05/04/19 [place] [address] [facility] [place] [address] Assigned PCP 05/05/19 02/08/20 [facility] [address] [place] [address] Pharmacist Pharmacist 06/18/19 09/17/19 [place] [address] [place] [address] Assigned PCP 02/09/20 01/30/21 [facility] [address] [place] [address] Pharmacist Pharmacist 07/22/20 Risa Mcdowell MD [address] [facility], [facility] 100 [place] [address] Assigned OBGYN Provider 12/13/2006/03 Brandi Gutierrez MD [facility] [address] [place], [place] [address] Assigned PCP 01/31/21 06/19/21 [place] [address] [place] [address] Assigned PCP 06/20/21 01/07/22 [place] [address] [place] [address] Assigned PCP 01/08/22 07/07/23 Jr Chaparro PA-C [address] [place] 4808[address] Assigned PCP 07/08/23 Nirmala Castrejon, RD [address] [place] [address] 84 [place], [place] [address] Registered Dietitian Dietitian, Registered 04/23/24 documented as of this encounter
--- OUTSIDE RECORDS SUMMARY | 2024-06-20 18:14 | XMS_ITS | Encounter Summary ---
Author Organization [facility] Address [address] [place] [address] Care Team Providers Care Weapons Mechanic Name Role Phone Maureen Centeno MD Primary Care Provider + Maureen Centeno MD Unavailable + Maureen Centeno MD Unavailable +[phone] Kayy Allen RPH Unavailable Unavailable Alessandra Leblanc APRN [facility] Unavailable + Maureen Centeno MD Unavailable + Barb Sanders RP Unavailable Maureen Centeno MD Unavailable + Sissy Herrera RPH Unavailable +[phone] Risa Mcdowell MD Unavailable [phone] Brandi Gutierrez MD Unavailable + Maureen Centeno MD Unavailable + Aeljandro Mccarty MD Unavailable + Jr Chaparro PA-C Unavailable +1- Nirmala Castrejon RD Unavailable +[phone] Reason for Visit * Reason Onset Date Comments Refill Request 07/18/2012 Aciphex, Bactrim Encounter Details Date Type Department Care Team (Late st Contact Info) Description 07/18/2012 MyC Refill [address], [address] [place] [address] [place] [address] [place] [address] Refill Request (Aciphex, Bactrim) Social History Tobacco Use Types Packs/Day Years Used Date Smoking Tobacco: Never Smokeless Tobacco: Never Alcohol Use Standard Drinks/Week Comments Yes 1.7 (1 standard drink = 0.6 oz p ure alcohol) occasionally Comments No Sex and Gender Information Value Date Recorded Sex Assigned at Female 10/15/2018 5:37 PM PACKAGING TECH Legal Sex Female 3:33 AM PACKAGING TECH Gender Identity Female 10/15/2018 5:37 PM PACKAGING TECH Sexual Orientation Straight 10/15/2018 5: 37 PM PACKAGING TECH documented as of this encounter Miscellaneous Notes * Telephone Encounter - Brie Solitario - 07/18/2012 1:10 PM CST Med: Aciphex, Bactrim Last OV: 03/30/2012 Reason: Back pain Unable to fill per RN protocol. Will route to provider. Brie Solitario RN AGING TECH * Telephone Encounter - Brie Solitario - 07/18/2012 1:06 PM CSTMessage from MyChart: Original authorizing provider: MD Quynh Menard would like a refill of the following medications: sulfamethoxazole-trimethoprim (BACTRIM DS) 800-160 MG per tablet [Maureen Centeno MD] acyclovir (ZOVIRAX) 400 MG tablet [Maureen Centeno MD] Preferred pharmacy: [facility] Comment: AGING TECH documented in this encounter Plan of Treatment Not on file documented as of this encounter Visit Diagnoses Diagnosis Recurrent UTI- Primary Urinary tract infection, site not specified HERPES SIMPLEX NOS Herpes simplex without mention of complication Esophageal reflux documented in this encounter Care Teams Weapons Mechanic Relationship Specialty Start [place] [address] [place] [address] PCP - General Family Practice 03/21/11 [place] [address] [place] [address] PCP - Assigned PCP 09/10/17 10/16/18 [place] [address] [place] [address] Assigned PCP 09/10/17 04/27/19 Kayy Allen [facility] [address] [place] [address] Pharmacist Pharmacist 02/28/19 07/21/20 Alessandra Leblanc APRN [facility] [address] [place] [address] Assigned PCP 04/28/19 05/04/19 [place] [address] [place] [address] Assigned PCP 05/05/19 02/08/20 Barb Sanders [facility] [address] [place] [address] Pharmacist Pharmacist 06/18/19 09/17/[address] [place] [address] [place] [address] Assigned PCP 02/09/20 01/30/21 Sissy Herrera [facility] [address] [place] [address] Pharmacist Pharmacist 07/22/20 Risa Mcdowell MD [address] [place] [address] Assigned OBGYN Provider 12/13/2006/03 Brandi Guteirrez MD [facility] [address] [place], [place] [id number] Assigned PCP 01/31/21 06/19/21 [place] [address] [address] [place], [place] [address] Assigned PCP 06/20/21 01/07/22 [place] [address] [place], [place] 2778[address] Assigned PCP 01/08/22 07/07/23 Jr Chaparro PA-C [address] [place], [place] 1711368 Assigned PCP 07/08/23 Nirmala Castrejon, RD [address] [place] [address] 84 [place], [place] [address] Registered Dietitian Dietitian, Registered 04/23/24 documented as of this encounter
--- OUTSIDE RECORDS SUMMARY | 2024-06-20 18:14 | XMS_ITS | Encounter Summary ---
Author Organization [place] Address [address] [place] [address] Care Team Providers Care De Icer Name Role Phone Maureen Centeno MD Primary Care Provider + Maureen Centeno MD Unavailable + Maureen Centeno MD Unavailable +[phone] Kayy Allen RPH Unavailable Unavailable Alessandra Leblanc APRN [facility] Unavailable + Maureen Centeno MD Unavailable + Barb Sanders RP Unavailable Maureen Centeno MD Unavailable + Sissy Herrera RPH Unavailable +[phone] Risa Mcdowell MD Unavailable [phone] Brandi Gutierrez MD Unavailable + Maureen Centeno MD Unavailable + Alejandro Mccarty MD Unavailable + Jr Chaparro PA-C Unavailable +1- Nirmala Castrejon RD Unavailable +[phone] Reason for Visit * Reason Onset Date Comments MyChart Communication 10/11/2011 update Encounter Details Date Type Department Care Team (Late st Contact Info) Description 10/11/2011 MyC Medical Advice [facility] [id number] [place] [address], [address] [place] [address] [place] [address] [place] [address] MyChart Communication (update) Social History Tobacco Use Types Packs/Day Years Used Date Smoking Tobacco: Never Smokeless Tobacco: Never Alcohol Use Standard Drinks/Week Comments Yes 1.7 (1 standard drink = 0.6 oz p ure alcohol) occasionally Comments No Sex and Gender Information Value Date Recorded Sex Assigned at Female 10/15/2018 5:37 PM QUALITY CONTROL SCIENTIST Legal Sex Female 3:33 AM QUALITY CONTROL SCIENTIST Gender Identity Female 10/15/2018 5:37 PM QUALITY CONTROL SCIENTIST Sexual Orientation Straight 10/15/2018 5: 37 PM QUALITY CONTROL SCIENTIST documented as of this encounter Miscellaneous Notes * Telephone Encounter - Coty Plascencia - 10/11/2011 3:20 PM CST Sent Paperlit message, will wait for response Coty Plascencia RN, BSN Message handled by Nurse Triage. ITY CONTROL SCIENTIST * Telephone Encounter - Maureen Centeno MD - 10/11/2011 3:11 PM QUALITY CONTROL SCIENTIST She is on the highest dose of pristiq and vyvanse and Wellbutrin. Could she consider seeing mental health as well? Talk therapy or help with medications from psychiatrist ITY CONTROL SCIENTIST * Telephone Encounter - Coty Plascencia - 10/11/2011 2:41 PM CST SD, see [employer] message and advise Coty Vogelgesang, RN, BSN Message handled by Nurse Triage. ITY CONTROL SCIENTIST documented in this encounter Plan of Treatment Not on file documented as of this encounter Visit Diagnoses Not on filedocumented in this encounter Care Teams De Icer Relationship Specialty [place] [address] [place] [address] PCP - General Family Practice 03/21/11 [place] [address] [place] [address] PCP - Assigned PCP 09/10/17 10/16/18 [place] [address] [place] [address] Assigned PCP 09/10/17 04/27/19 Kayy Allen [facility] [address] [place] [address] Pharmacist Pharmacist 02/28/19 07/21/20 Alessandra Leblanc APRN PROJECT MANAGEMENT ANALYST [address] [place] [address] Assigned PCP 04/28/19 05/04/19 [place] [address] [place] [address] Assigned PCP 05/05/19 02/08/20 Barb Sanders, [facility] [address] [place] [address] Pharmacist Pharmacist 06/18/19 09/17/19 [place] [address] [place] [address] Assigned PCP 02/09/20 01/30/21 JavierSissy [facility] [address] [place] [address] Pharmacist Pharmacist 07/22/20 Risa Mcdowell MD [address], [address] [place], [place] 85[address] Assigned OBGYN Provider 12/13/2006/03 Brandi Gutierrez MD [facility] [address] [place], [place] [address] Assigned PCP 01/31/21 06/19/21 [place] [address] [address] [place], [place] 610[address]68 Assigned PCP 06/20/21 01/07/22 [place] [address] [place], [place] 4307568 Assigned PCP 01/08/22 07/07/23 Jr Chaparro PA-C [address] [place], [place] 7056568 Assigned PCP 07/08/23 Nirmala Castrejon, RD [address] [place] [address] [address] [place], [place] 2045[address] Registered Dietitian Dietitian, Registered 04/23/24 documented as of this encounter
--- OUTSIDE RECORDS SUMMARY | 2024-06-20 18:14 | XMS_ITS | Encounter Summary ---
Author Organization [facility] Address [address] [place] [address] Care Team Providers Care Photoengraving Apprentice Name Role Phone Maureen Centeno MD Primary Care Provider + Maureen Centeno MD Unavailable + Maureen Centeno MD Unavailable +[phone] Kayy Allen RPH Unavailable Unavailable Alessandra Leblanc APRN [facility] Unavailable + Maureen Centeno MD Unavailable + Barb Sanders RP Unavailable Maureen Centeno MD Unavailable + Sissy Herrera RPH Unavailable +[phone] Risa Mcdowell MD Unavailable [phone] Brandi Gutierrez MD Unavailable + Maureen Centeno MD Unavailable + Alejandro Mccarty MD Unavailable + Jr Chaparro PA-C Unavailable +1- Nirmala Castrejon RD Unavailable +[phone] Encounter Details Date Type Department Care Team (Late st Contact Info) Description 02/13/2012 MyC Medical Advice [address], [address] [place] [address] [place] [address] [place] [address] Social History Tobacco Use Types Packs/Day Years Used Date Smoking Tobacco: Never Smokeless Tobacco: Never Alcohol Use Standard Drinks/Week Comments Yes 1.7 (1 standard drink = 0.6 oz p ure alcohol) occasionally Comments No Sex and Gender Information Value Date Recorded Sex Assigned at Female 10/15/2018 5:37 PM NUDE MODEL Legal Sex Female 3:33 AM NUDE MODEL Gender Identity Female 10/15/2018 5:37 PM NUDE MODEL Sexual Orientation Straight 10/15/2018 5: 37 PM NUDE MODEL documented as of this encounter Plan of Treatment Not on file documented as of this encounter Visit Diagnoses Not on filedocumented in this encounter Care Teams Photoengraving Apprentice Relationship Specialty [place] [address] [place] [address] PCP - General Family Practice 03/21/11 [place] [address] [place] [address] PCP - Assigned PCP 09/10/17 10/16/18 [place] [address] [place] [address] Assigned PCP 09/10/17 04/27/19 Kayy Allen [facility] [address] [place] [address] Pharmacist Pharmacist 02/28/19 07/21/20 Alessandra Leblanc APRN OPTICIANRY TEACHER [address] [place] [address] Assigned PCP 04/28/19 05/04/19 [place] [address] [place] [address] Assigned PCP 05/05/19 02/08/20 Barb Sanders, [facility] [address] [place] [address] Pharmacist Pharmacist 06/18/19 09/17/[address] [place] [address] [place] [address] Assigned PCP 02/09/20 01/30/21 [facility] [address] [place], [place] [address] Pharmacist Pharmacist 07/22/20 Risa Mcdowell MD [address] [facility] [address] [place] [address] Assigned OBGYN Provider 12/13/2006/03 Brandi Gutierrez MD [facility] [address] [place] [address] Assigned PCP 01/31/21 06/19/21 [place] [address] [place] 507[address] Assigned PCP 06/20/21 01/07/22 [place] [address] [place] 7888068 Assigned PCP 01/08/22 07/07/23 Jr Chaparro PA-C [address] [place] [address] Assigned PCP 07/08/23 Nirmala Castrejon, RD [address] [place] [address] 84 [place], [place] 369705 Registered Dietitian Dietitian, Registered 04/23/24 documented as of this encounter
--- OUTSIDE RECORDS SUMMARY | 2024-06-20 18:14 | XMS_ITS | Encounter Summary ---
Author Organization [facility] Address [address] [place] [address] Care Team Providers Care Tire Mold Engraver Name Role Phone Maureen Centeno MD Primary Care Provider + Maureen Centeno MD Unavailable + Maureen Centeno MD Unavailable +[phone] Kayy Allen RPH Unavailable Unavailable Alessandra Leblanc APRN [facility] Unavailable + Maureen Centeno MD Unavailable + Barb Sanders RP Unavailable +[phone] Maureen Centeno MD Unavailable + Sissy Herrera RPH Unavailable +[phone] Risa Mcdowell MD Unavailable [phone] Brandi Gutierrez MD Unavailable + Maureen Centeno MD Unavailable + Alejandro Mccarty MD Unavailable + Jr Chaparro PA-C Unavailable +1- Nirmala Castrejon RD Unavailable [phone] Reason for Visit * Reason Onset Date Comments Medication Refill 02/10/2012 Vyvanse Encounter Details Date Type Department Care Team (Late st Contact Info) Description 02/10/2012 MyC Medical Advice [address], [address] [place] [phone] [place] [address] [place] [address] Medication Refill (Vyvanse) Social History Tobacco Use Types Packs/Day Years Used Date Smoking Tobacco: Never Smokeless Tobacco: Never Alcohol Use Standard Drinks/Week Comments Yes 1.7 (1 standard drink = 0.6 oz p ure alcohol) occasionally Comments No Sex and Gender Information Value Date Recorded Sex Assigned at Female 10/15/2018 5:37 PM TELECASTING TECHNICIAN Legal Sex Female 3:33 AM TELECASTING TECHNICIAN Gender Identity Female 10/15/2018 5:37 PM TELECASTING TECHNICIAN Sexual Orientation Straight 10/15/2018 5: 37 PM TELECASTING TECHNICIAN documented as of this encounter Miscellaneous Notes * Telephone Encounter - Maureen Centeno MD - 02/13/2012 9:17 AM CDT I need to see her every 3 months, and she is due now. I cannot give her more than a 30 day supply of a controlled substance and we do not usually send via mail order, but she has to pick it up each month. documented in this encounter Plan of Treatment Not on file documented as of this encounter Visit Diagnoses Diagnosis ATTN DEFICIT W HYPERACT- Primary Attention deficit disorder with hyperactivity documented in this encounter Care Teams Tire Mold Engraver Relationship Specialty [place] [address] [place] [address] PCP - General Family Practice 03/21/11 [place] [address] [place] [address] PCP - Assigned PCP 09/10/17 10/16/18 [place] [address] [place] [address] Assigned PCP 09/10/17 04/27/19 [facility] [address] [place] [address] Pharmacist Pharmacist 02/28/19 07/21/20 Alessandra Leblanc APRN [facility] [address] [place] [address] Assigned PCP 04/28/19 05/04/19 [place] [address] [place] [address] Assigned PCP 05/05/19 02/08/20 Barb Sanders [facility] [address] [place] [address] Pharmacist Pharmacist 06/18/19 09/17/19 [place] [address] [place] [address] Assigned PCP 02/09/20 01/30/21 [facility] [address] [place] [address] Pharmacist Pharmacist 07/22/20 Risa Mcdowell MD [address], [address] [place] [address] Assigned OBGYN Provider 12/13/2006/03 Brandi Gutierrez MD [facility] [address] [place], [place] [address] Assigned PCP 01/31/21 06/19/21 [place] [address] [place] [place], [place] [address] Assigned PCP 06/20/21 01/07/22 [place] [address] [place] [place], [place] [address] Assigned PCP 01/08/22 07/07/23 Jr Chaparro PA-C [address] [place] [place], [place] 085[address] Assigned PCP 07/08/23 Nirmala Castrejon, RD [address] [place] [address] 84 [place] [address] Registered Dietitian Dietitian, Registered 04/23/24 documented as of this encounter
--- OUTSIDE RECORDS SUMMARY | 2024-06-20 18:14 | XMS_ITS | Encounter Summary ---
Author Organization [facility] Address [address] [place] [address] Care Team Providers Care Clinical Support Tech Name Role Phone Maureen Centeno MD Primary Care Provider + Maureen Centeno MD Unavailable + Maureen Centeno MD Unavailable +[phone] Kayy Allen RPH Unavailable Unavailable Alessandra Leblanc APRN [facility] Unavailable + Maureen Centeno MD Unavailable + Barb Sanders RP Unavailable [phone] Maureen Centeno MD Unavailable + Sissy Herrera RPH Unavailable +[phone] Risa Mcdowell MD Unavailable [phone] Brandi Gutierrez MD Unavailable + Maureen Centeno MD Unavailable + Alejandro Mccarty MD Unavailable + Jr Chaparro PA-C Unavailable +1- Nirmala Castrejon RD Unavailable [phone] Encounter Details Date Type Department Care Team (Late st Contact Info) Description 07/19/[address], [address] [place] [address] [facility] Social History Tobacco Use Types Packs/Day Years Used Date Smoking Tobacco: Never Smokeless Tobacco: Never Alcohol Use Standard Drinks/Week Comments Yes 1.7 (1 standard drink = 0.6 oz p ure alcohol) occasionally Comments No Sex and Gender Information Value Date Recorded Sex Assigned at Female 10/15/2018 5:37 PM COSTUME CUTTER Legal Sex Female 3:33 AM COSTUME CUTTER Gender Identity Female 10/15/2018 5:37 PM COSTUME CUTTER Sexual Orientation Straight 10/15/2018 5: 37 PM COSTUME CUTTER documented as of this encounter Plan of Treatment Not on file documented as of this encounter Visit Diagnoses Not on filedocumented in this encounter Care Teams Clinical Support Tech Relationship Specialty [place] [address] [place] [address] PCP - General Family Practice 03/21/11 [place] [address] [place] [address] PCP - Assigned PCP 09/10/17 10/16/18 [place] [address] [place] [address] Assigned PCP 09/10/17 04/27/19 Kayy Allen RPH [address] [place] [address] Pharmacist Pharmacist 02/28/19 07/21/20 Alessandra Leblanc APRN ASSOCIATE CIVIL ENGINEER [address] [place] 2859168 Assigned PCP 04/28/19 05/04/19 [place] [address] [place] [address] Assigned PCP 05/05/19 02/08/20 Barb Sanders, [facility] [address] [place] [address] Pharmacist Pharmacist 06/18/19 09/17/19 [place] [address] [place] [address] Assigned PCP 02/09/20 01/30/21 Sissy Herrera [facility] [address] [place] [address] Pharmacist Pharmacist 07/22/20 Risa Mcdowell MD [address] [facility] [address] [place] [address] Assigned OBGYN Provider 12/13/2006/03 Brandi Gutierrez MD [facility] [address] [place], [place] [address] Assigned PCP 01/31/21 06/19/21 [place] [address] [place] [address] Assigned PCP 06/20/21 01/07/22 [place] [address] [place] [address] Assigned PCP 01/08/22 07/07/23 Jr Chaparro PA-[place] [address] [place] [address] Assigned PCP 07/08/23 Nirmala Castrejon, RD [address] [place] [address] 84 [place], [place] [address] Registered Dietitian Dietitian, Registered 04/23/24 documented as of this encounter
--- OUTSIDE RECORDS SUMMARY | 2024-06-20 18:14 | XMS_ITS | Encounter Summary ---
Author Organization [facility] Address [address] [place] [address] Care Team Providers Care Ditching Machine Engineer Name Role Phone Louisa Burgos MD Primary Care Provider + Maureen Centeno MD Primary Care Provider Maureen Centeno MD Unavailable [phone] Maureen Centeno MD Unavailable [phone] Kayy Allen RP Unavailable Unavailable Alessandra Leblanc APRN DEFENSIVE DRIVING INSTRUCTOR Unavailable + Maureen Centeno MD Unavailable [phone] Barb Sanders H Unavailable Maureen Centeno MD Unavailable [phone] Sissy Herrera [facility] Unavailable [phone] Risa Mcdowell MD Unavailable [phone] Brandi Gutierrez MD Unavailable + Maureen Centeno MD Unavailable [phone] Alejandro Mccarty MD Unavailable Jr Chaparro PA-C Unavailable [phone] Unavailable [phone] Reason for Visit * Reason Onset Date Comments Recheck Medication 03/19/2011 Med check Kizzy stique and Yvanse Encounter Details Date Type Department Care Team (Late st Contact Info) Description 03/19/2011 MyC Medical Advice [address], [address] [place] [address] [place] [address] [place] [id number] Recheck Medication (Med check Pristique a... Social History Tobacco Use Types Packs/Day Years Used Date Smoking Tobacco: Never Smokeless Tobacco: Never Alcohol Use Standard Drinks/Week Comments Yes 1.7 (1 standard drink = 0.6 oz p ure alcohol) occasionally Comments No Sex and Gender Information Value Date Recorded Sex Assigned at Female 10/15/2018 5:37 PM CATALYTIC CASE OPERATOR Legal Sex Female 3:33 AM CATALYTIC CASE OPERATOR Gender Identity Female 10/15/2018 5:37 PM CATALYTIC CASE OPERATOR Sexual Orientation Straight 10/15/2018 5: 37 PM CATALYTIC CASE OPERATOR documented as of this encounter Plan of Treatment Not on file documented as of this encounter Visit Diagnoses Diagnosis ATTN DEFICIT W HYPERACT- Primary Attention deficit disorder with hyperactivity Mild major depression (H) Major depressive disorder, single episode, mild documented in this encounter Care Teams Ditching Machine Engineer Relationship Specialty Start Date End Date Louisa Burgos MD PCP - General Internal Medicine 12/31/09 03/20/11 [place] [address] [place] [address] PCP - General Family Practice 03/21/11 [place] [address] [place] [address] PCP - Assigned PCP 09/10/17 10/16/18 [place] [address] [place] [address] Assigned PCP 09/10/17 04/27/19 Kayy Allen [facility] [address] [place] [address] Pharmacist Pharmacist 02/28/19 07/21/20 Alessandra Leblanc APRN [facility] [address] [place] [address] Assigned PCP 04/28/19 05/04/19 [place] [address] [place] [address] Assigned PCP 05/05/19 02/08/20 Barb Sanders [facility] [address] [place] [address] Pharmacist Pharmacist 06/18/19 09/17/[address] [place] [address] [place] [address] Assigned PCP 02/09/20 01/30/21 Sissy Herrera [facility] [address] [place], [place] [address] Pharmacist Pharmacist 07/22/20 Risa Mcdowell MD [address] [facility], [address] [address] Assigned OBGYN Provider 12/13/2006/03 Brandi Gutierrez MD [facility] [address] [place] [address] Assigned PCP 01/31/21 06/19/21 [place] [address] [place], [place] 068[address] Assigned PCP 06/20/21 01/07/22 [place] [address] [place] [place], [place] 77647[address] Assigned PCP 01/08/22 07/07/23 Jr Chaparro PA-C [address] [place] [place], [place] 66401[address] Assigned PCP 07/08/23 Nirmala Castrejon, RD [address] [place] [address] 84 [place] [address] Registered Dietitian Dietitian, Registered 04/23/24 documented as of this encounter
--- OUTSIDE RECORDS SUMMARY | 2024-06-20 18:14 | XMS_ITS | Encounter Summary ---
Author Organization [facility] Address [address] [place] [address] Care Team Providers Care Head Silverman Name Role Phone Maureen Centeno MD Primary Care Provider + Maureen Centeno MD Unavailable + Maureen Centeno MD Unavailable +[phone] Kayy Allen RPH Unavailable Unavailable Alessandra Leblanc APRN [facility] Unavailable + Maureen Centeno MD Unavailable + Barb Sanders RP Unavailable Maureen Centeno MD Unavailable + Sissy Herrera RPH Unavailable +[phone] Risa Mcdowell MD Unavailable [phone] Brandi Gutierrez MD Unavailable + Maureen Centeno MD Unavailable + Alejandro Mccarty MD Unavailable + Jr Chaparro PA-C Unavailable +1- Nirmala Castrejon RD Unavailable [phone] Reason for Visit * Reason Onset Date Comments Medication Problem 12/19/2012 Side effects Encounter Details Date Type Department Care Team (Late st Contact Info) Description 12/19/2012 MyC Medical Advice [address], [address] [place] [address] [place] [address] [place] [address] Medication Problem (Side effects) Social History Tobacco Use Types Packs/Day Years Used Date Smoking Tobacco: Never Smokeless Tobacco: Never Alcohol Use Standard Drinks/Week Comments Yes 1.7 (1 standard drink = 0.6 oz p ure alcohol) occasionally Comments No Sex and Gender Information Value Date Recorded Sex Assigned at Female 10/15/2018 5:37 PM PROCESSING OPERATOR Legal Sex Female 3:33 AM PROCESSING OPERATOR Gender Identity Female 10/15/2018 5:37 PM PROCESSING OPERATOR Sexual Orientation Straight 10/15/2018 5: 37 PM PROCESSING OPERATOR documented as of this encounter Plan of Treatment Not on file documented as of this encounter Visit Diagnoses Not on filedocumented in this encounter Care Teams Head Silverman Relationship Specialty Start [place] [address] [place] [address] PCP - General Family Practice 03/21/11 [place] [address] [place] [address] PCP - Assigned PCP 09/10/17 10/16/18 [place] [address] [place] [address] Assigned PCP 09/10/17 04/27/19 Kayy Allen [facility] [address] [place] [address] Pharmacist Pharmacist 02/28/19 07/21/20 Alessandra Leblanc APRN RECREATIONAL THERAPY TECHNICIAN [address] [place] [address] Assigned PCP 04/28/19 05/04/19 [place] [address] [place] [address] Assigned PCP 05/05/19 02/08/20 Barb Sanders [facility] [address] [place] [address] Pharmacist Pharmacist 06/18/19 09/17/19 [place] [address] [address] [facility] [place] [address] Assigned PCP 02/09/20 01/30/21 [facility] [address] [place] [address] Pharmacist Pharmacist 07/22/20 Risa Mcdowell MD [address] [facility] 100 [place] [address] Assigned OBGYN Provider 12/13/2006/03 Brandi Gutierrez MD [facility] [address] [facility] 350 [place], [place] [address] Assigned PCP 01/31/21 06/19/21 [place] [address] [address] [place], [place] [address] Assigned PCP 06/20/21 01/07/22 [place] [address] [place], [place] 9647968 Assigned PCP 01/08/22 07/07/23 Jr Chaparro PA-C [address] [place], [place] 10127[address] Assigned PCP 07/08/23 Nirmala Castrejon, RD [address] [place] [address] 84 [place] [address] Registered Dietitian Dietitian, Registered 04/23/24 documented as of this encounter
--- OUTSIDE RECORDS SUMMARY | 2024-06-20 18:15 | XMS_ITS | Encounter Summary ---
Author Organization [facility] Address [address] [place] [id number] Care Team Providers Care [employer]ision [employer] Fitter Name Role Phone Louisa Burgos MD Primary Care Provider + Maureen Centeno MD Primary Care Provider Maureen Centeno MD Unavailable [phone] Maureen Centeno MD Unavailable [phone] Kayy Allen RP Unavailable Unavailable Alessandra Leblanc APRN BED PLACEMENT COORDINATOR Unavailable + Maureen Centeno MD Unavailable [phone] Barb Sanders H Unavailable Maureen Centeno MD Unavailable Sissy Herrera [facility] Unavailable Risa Mcdowell MD Unavailable [phone] Brandi Gutierrez MD Unavailable + Maureen Centeno MD Unavailable [phone] Alejandro Mccarty MD Unavailable Jr Chaparro PA-C Unavailable [phone] Unavailable [phone] Reason for Visit * Reason Onset Date Comments Refill Request 03/23/2010 Encounter Details Date Type Department Care Team (Late st Contact Info) Description 03/23/2010 MyC Refill [address], [address] [place] [address] Louisa Burgos MD [address] [place] [address] [address] [place] [address] Refill Request Social History Tobacco Use Types Packs/Day Years Used Date Smoking Tobacco: Never Alcohol Use Standard Drinks/Week Comments Yes 1.7 (1 standard drink = 0.6 oz p ure alcohol) occasionally Comments No Sex and Gender Information Value Date Recorded Sex Assigned at Female 10/15/2018 5:37 PM [employer] Legal Sex Female 3:33 AM [employer] Gender Identity Female 10/15/2018 5:37 PM [employer] Sexual Orientation Straight 10/15/2018 5: 37 PM [employer] documented as of this encounter Miscellaneous Notes * Telephone Encounter - sAtrid Wright - 03/23/2010 9:03 AM CDT Doesn't meet RN refill guidelines. Medication was filled 03/15 and patient was told to make an appointment for more refills, no future appointments scheduled. She is asking for 90 day supply for mail order pharmacy. Routed to PCP for approval. * Telephone Encounter - Astrid Wright - 03/23/2010 8:59 AM [facility] Quynh Chan would like a refill of the following medications: EFFEXOR XR 37.5 MG PO CP24 [Louisa Burgos MD] Preferred pharmacy: [facility] Comment: I would like to get a 90 day supply to go thru my Mail Order Pharmacy for the Effexor, [facility] pharmacy is [email or web address] and the fax # is - Thanks :) documented in this encounter Plan of Treatment Not on file documented as of this encounter Visit Diagnoses Diagnosis DEPRESSIVE DISORDER NEC Depressive disorder, not elsewhere classified documented in this encounter Care Teams [employer] Fitter Relationship Specialty Start Date End Date Louisa Burgos MD PCP - General Internal Medicine 12/31/09 03/20/11 [place] [address] [address] [address] PCP - General Family Practice 03/21/11 [place] [address] [address] [address] PCP - Assigned PCP 09/10/17 10/16/18 [place] [address] [address] [address] Assigned PCP 09/10/17 04/27/19 [place] [address] [facility] [place] [place] [address] Pharmacist Pharmacist 02/28/19 07/21/20 Alessandra Leblanc APRN [facility] [address] [address] [address] Assigned PCP 04/28/19 05/04/19 [place] [address] [address] [address] Assigned PCP 05/05/19 02/08/20 Barb Sanders, [facility] [address] [place] [address] Pharmacist Pharmacist 06/18/19 09/17/19 [place] [address] [address] [place] [place], [place] [id number] Assigned PCP 02/09/20 01/30/21 Sissy Herrera, [facility] [address] [place], [place] [id number] Pharmacist Pharmacist 07/22/20 Risa Mcdowell MD [address] [facility] [place] [address] Assigned OBGYN Provider 12/13/2006/03 Brandi Gutierrez MD [facility] [address] [place], [place] [id number] Assigned PCP 01/31/21 06/19/21 [place] [address] [address] [place] [place], [place] [id number] Assigned PCP 06/20/21 01/07/22 [place] [address] [address] [place], [place] [id number] Assigned PCP 01/08/22 07/07/23 Jr Chaparro PA-C [address] [place] [place], [place] [id number] Assigned PCP 07/08/23 Nirmala Castrejon, LISA [address] [place] [address] Registered Dietitian Dietitian, Registered 04/23/24 documented as of this encounter
== END 2024-06-20 18:10 | disposition home or self-care (01) ==
LOC: LKVREF 18:09
PROVIDERS: PCP Physician Assistant; Visit Provider Family Medicine
DX: N39.0 Urinary tract infection, site not specified (principal)
CPT/HCPCS: 87086

== ENCOUNTER 2024-11-13 12:01 | Outpatient (CLI) | payer OTHER, SELFPAY | END 2024-11-13 12:02 | disposition home or self-care (01) | LOC: NFLDREF 11-17 16:58 | PROVIDERS: PCP Physician Assistant; Referring Provider Physician Assistant | DX: N30.01 Acute cystitis with hematuria (principal); B96.20 Unspecified Escherichia coli [E. coli] as the cause of diseases classified elsewhere | CPT/HCPCS: 87086 ==